=== PATIENT | female | born 1965 | race Caucasian/White ===

== ENCOUNTER → 2018-06-05 09:45 | Outpatient (CLI) | payer OTHER, MEDICAID, SELFPAY ==
[2018-06-05 10:12] LABS: Add Manual Diff / Slide Review NO; Basophils Percent Auto 1.2 % (0-2); Eosinophils Percent Auto 1.2 % (2-4); Hematocrit 41.9 % (36-46); Hemoglobin 14.5 g/dL (12.0-16.0); Lymphocytes Percent Auto 25.3 % (25-40); Mean Corpuscular HGB Conc 34.5 % (30-36); Mean Corpuscular Hemoglobin 31.1 PG (26-34); Mean Corpuscular Volume 90.2 fL (80-100); Monocytes Percent Auto 7.7 % (3-14); Neutrophils Absolute Auto 6700 /uL (3000-5900); Neutrophils Percent Auto 64.6 % (50-75); Platelet Count 334 X10^3/uL (150-400); Red Blood Cell Count 4.65 X10^6/uL (4.0-5.2); Red Cell Distribution Width 13.3 % (11.6-14.8); White Blood Cell Count 10.3 X10^3/uL (4.5-11.0)
[2018-06-05 11:09] LABS: Free T4, Direct Thyroxine 1.16 ng/dL (0.78-2.19)
[2018-06-05 11:11] LABS: Creatinine Urine Random 249.3 mg/dL
[2018-06-05 11:22] LABS: Thyroid Stimulating Hormone 2.54 uIU/mL (0.47-4.68)
[2018-06-05 11:31] LABS: Alanine Aminotransferase 35 IU/L (9-52); Albumin Globulin Ratio 1.4 (1.0-2.8); Alkaline Phosphatase 79 U/L (38-126); Aspartate Aminotransferase 30 IU/L (14-36); BUN Creatinine Ratio 21.3 (6-22); Bilirubin Total 0.9 mg/dL (0.2-1.3); Blood Urea Nitrogen 17 mg/dL (7-17); Calcium 9.8 mg/dL (8.4-10.2); Carbon Dioxide 28 mmol/L (22-32); Chloride 101 mmol/L (98-107); Cholesterol 287 mg/dL (140-199); Estimated Glomerular Filt Rate > 60.0 mL/min (>60); Globulin 3.6 g/dL (1.7-4.1); Glucose 108 mg/dL (70-100); HDL Cholesterol 64 mg/dL (40-60); HEMOLYSIS < 15 (0-50); LDL Cholesterol Calculated 185 mg/dL (<100); Potassium 3.7 mmol/L (3.4-5.1); Sodium 140 mmol/L (137-145); Total Protein 8.6 g/dL (6.3-8.2); Triglycerides 188 mg/dL (35-150)
[2018-06-05 11:32] LABS: Microalbumi Creatinin Ratio Ur 107.9 ug/mg CR (<30); Microalbumin Urine Random 26.9 mg/dL (0-1.6)
[2018-06-05 19:17] LABS: Uric Acid 6.9 mg/dL (2.5-6.2)
== END ==
PROVIDERS: PCP Physician Assistant; Visit Provider Physician Assistant
DX: I10 Essential (primary) hypertension (principal); R07.89 Other chest pain; Z82.49 Family history of ischemic heart disease and other diseases of the circulatory system; D84.1 Defects in the complement system; M25.50 Pain in unspecified joint
CPT/HCPCS: 36415; 80053; 80061; 82043; 82570; 84439; 84443; 84550; 85025

== ENCOUNTER → 2018-06-08 13:06 | Outpatient (CLI) | payer OTHER, MEDICAID, SELFPAY ==
[2018-06-11 22:16] LABS: Fecal Immunochemical Test NOT DETECTED
== END ==
PROVIDERS: PCP Physician Assistant; Visit Provider Physician Assistant
DX: Z12.11 Encounter for screening for malignant neoplasm of colon (principal)
CPT/HCPCS: 82274

== ENCOUNTER → 2018-08-04 11:13 | Outpatient (CLI) | payer OTHER, MEDICAID, SELFPAY ==
--- NOTE | 2018-08-04 | DI.MG.S_ITS ---
BILATERAL DIGITAL SCREENING MAMMOGRAM 3D/2D WITH CAD: 08/04/2018 CLINICAL: Routine screening. Comparison is made to exams dated: 01/02/2015 mammogram, 06/18/2014 mammogram, and 07/11/2012 mammogram - [facility]. There are scattered fibroglandular elements in both breasts. Current study was also evaluated with a Computer Aided Detection (CAD) system. There are benign post operative findings in the left breast. No significant masses, calcifications, or other findings are seen in either breast. There has been no significant interval change. IMPRESSION: There is no mammographic evidence of malignancy. A 1 year screening mammogram is recommended. This exam was interpreted at Station ID: [id number]. NOTE: For mammograms, a report in lay terms will be sent to the patient. Approximately 15% of breast malignancies will not be visualized mammographically. In the management of a palpable breast mass, a negative mammogram must not discourage biopsy of a clinically suspicious lesion. Electronically Signed By: Cecilia manuel/izaiah:08/06/2018 13:04:59 letter sent: Normal Exam ACR BI-RADS Category 2: Benign Finding(s) 3342F
== END ==
PROVIDERS: PCP Physician Assistant; Visit Provider Physician Assistant
DX: Z12.31 Encounter for screening mammogram for malignant neoplasm of breast (principal)
CPT/HCPCS: 77063; 77067

== ENCOUNTER → 2018-12-18 14:19 | Outpatient (CLI) | payer OTHER, MEDICAID, SELFPAY ==
[2018-12-18 15:52] LABS: Cholesterol 300 mg/dL (140-199); HDL Cholesterol 54 mg/dL (40-60); LDL Cholesterol Calculated 202 mg/dL (<100); Triglycerides 218 mg/dL (35-150); Uric Acid 4.9 mg/dL (2.5-6.2)
[2018-12-18 15:56] LABS: Creatinine Urine Random 70.5 mg/dL
[2018-12-18 16:00] LABS: Microalbumi Creatinin Ratio Ur 36.8 ug/mg CR (<30); Microalbumin Urine Random 2.6 mg/dL (0-1.6)
== END ==
PROVIDERS: PCP Physician Assistant; Visit Provider Physician Assistant
DX: E78.2 Mixed hyperlipidemia (principal); E79.0 Hyperuricemia without signs of inflammatory arthritis and tophaceous disease; R80.9 Proteinuria, unspecified
CPT/HCPCS: 36415; 80061; 82043; 82570; 84550

== ENCOUNTER → 2019-03-19 09:29 | Outpatient (CLI) | payer OTHER, MEDICAID, SELFPAY ==
[2019-03-19 10:34] LABS: Alanine Aminotransferase 64 IU/L (9-52); Albumin 4.5 g/dL (3.5-5.0); Albumin Globulin Ratio 1.4 (1.0-2.8); Alkaline Phosphatase 89 U/L (38-126); Aspartate Aminotransferase 57 IU/L (14-36); Bilirubin Total 0.4 mg/dL (0.2-1.3); Bilirubin Unconjugated 0.2 mg/dL (0.0-1.1); Cholesterol 159 mg/dL (140-199); Globulin 3.2 g/dL (1.7-4.1); HDL Cholesterol 35 mg/dL (40-60); HEMOLYSIS < 15 (0-50); LDL Cholesterol Calculated 80 mg/dL (<100); Total Protein 7.7 g/dL (6.3-8.2); Triglycerides 220 mg/dL (35-150)
== END ==
PROVIDERS: PCP Physician Assistant; Visit Provider Physician Assistant
DX: E78.2 Mixed hyperlipidemia (principal); Z51.81 Encounter for therapeutic drug level monitoring
CPT/HCPCS: 36415; 80061; 80076

== ENCOUNTER 2019-03-20 04:54 | Emergency (ER) | payer OTHER, MEDICAID, SELFPAY ==
[2019-03-20 05:03] VITALS: BP 131/104; PULSE 98; RESP 18; TEMP 36.6; O2SAT 98; BMI 28.1
[2019-03-20 05:17] LABS: Add Manual Diff / Slide Review NO; Basophils Absolute Auto 100 /uL (0-100); Basophils Percent Auto 0.6 % (0-2); Eosinophils Absolute Auto 100 /uL (0-450); Eosinophils Percent Auto 1.5 % (2-4); Hematocrit 43.3 % (36-46); Hemoglobin 14.7 g/dL (12.0-16.0); Lymphocytes Absolute Auto 2600 /uL (1100-4500); Lymphocytes Percent Auto 26.6 % (25-40); Mean Corpuscular Hemoglobin 30.5 PG (26-34); Mean Corpuscular Volume 89.7 fL (80-100); Monocytes Absolute Auto 1600 /uL (0-900); Monocytes Percent Auto 16.1 % (3-14); Neutrophils Absolute Auto 5400 /uL (1500-7000); Neutrophils Percent Auto 55.2 % (50-75); Platelet Count 290 X10^3/uL (150-400); Red Blood Cell Count 4.82 X10^6/uL (4.0-5.2); Red Cell Distribution Width 13.9 % (11.6-14.8); White Blood Cell Count 9.7 X10^3/uL (4.5-11.0)
--- NOTE | 2019-03-20 05:23 | DI.US.S_ITS ---
PROCEDURE: US ABDOMEN LIMITED INDICATIONS: severe RUQ pain TECHNIQUE: Real-time focused scanning was performed of the abdomen, with image documentation. COMPARISON: [facility], CR, ABDOMEN ACUTE SERIES, 01/10/2017, 15:44. [facility], CT, ABDOMEN/PELVIS WITH CONTRAST, 07/25/2016, 17:08. FINDINGS: The liver is hyperechoic consistent with marked fatty infiltration but no focal liver lesion is seen nor is there evidence of biliary distention. The liver is not enlarged. IMPRESSION: The gallbladder appears normal, fatty infiltration is present throughout the liver. A definite source of severe right upper quadrant pain is not found otherwise. Dictated by: Steven Cristina M.D. on 03/20/2019 at 8:46 Approved by: Steven Cristina M.D. on 03/20/2019 at 8:47
[2019-03-20 05:24] LABS: INR 0.9 (0.9-1.3); Prothrombin Time 10.9 SECONDS (10.1-12.7)
[2019-03-20 05:26] LABS: PTT Partial Thromboplastin Tim 32 SECONDS (26.4-36.2)
--- NOTE | 2019-03-20 05:26 | ED.ABDPAIN ---
HPI - Abdominal Pain General Chief Complaint: Abdominal Pain Stated Complaint: vomiting for 2 days/diarreha Time Seen by Provider: 03/20/19 05:00 Source: patient Mode of arrival: ambulatory Limitations: no limitations History of Present Illness HPI narrative: 53-year-old female nonsmoker with history of colitis presents with a chief complaint of rather severe epigastric and right upper quadrant pain for the past day or 2. She states it gets much worse when she eats and she admits to nausea vomiting as well. She denies any chest pain or shortness of breath. She is not dizzy, weak or lightheaded. She denies fever or chills. MD complaint: abdominal pain Onset (ago): day(s) Pain Consistency: constant Location: RUQ Severity: moderate Quality: cramping and aching Migration to: no migration Relieving factors: nothing Exacerbating factors: eating Context: possible food poisoning Associated symptoms: nausea, vomiting and diarrhea Related Data Home Medications Medication Instructions Recorded Confirmed Acyclovir 5% See Rx Instructions .ROUTE .COMPLEX 06/05/18 03/19/19 Meloxicam See Rx Instructions .ROUTE .COMPLEX 06/05/18 03/19/19 Previous Rx's Medication Instructions Recorded fluticasone propionate 50 2 spray NASAL DAILY PRN #15.8 gram 02/20/18 mcg/actuation nasal spray,suspension loratadine 10 mg tablet 10 mg PO DAILY PRN #30 tab 02/20/18 ondansetron 4 mg disintegrating 4 mg SUBLINGUAL Q6HP PRN #10 odt 05/02/18 tablet allopurinol 100 mg tablet 100 mg PO DAILY #30 tab 09/11/18 valacyclovir 1 gram tablet 1,000 mg PO BID PRN #30 tab 09/18/18 pantoprazole 40 mg tablet,delayed 40 mg PO DAILY #30 tab 12/18/18 release cyclobenzaprine 5 mg tablet 5 mg PO BIDP PRN #30 tab 01/31/19 metoprolol succinate ER 25 mg 25 mg PO QDAY #30 ter 01/31/19 tablet,extended release 24 hr atorvastatin 20 mg tablet 20 mg PO BEDTIME #60 tab 03/19/19 ondansetron 4 mg PO TID-QID PRN #10 tab 03/20/19 Allergies Allergy/AdvReac Type Severity Reaction Status Date / Time Penicillins [PENICILLINS] Allergy Mild RASH Verified 03/20/19 05:13 oseltamivir [From TAMIFLU] AdvReac Intermediate lesions Verified 03/20/19 05:13 on skin Review of Systems Constitutional Denies chills, Denies fever(s), Denies lethargy and Denies weakness Eyes Denies change in vision, Denies eye discharge, Denies irritation and Denies loss of vision ENT Ears, Nose, Mouth, and Throat: Denies change in voice, Denies neck pain and Denies sore throat Cardiovascular Denies chest pain, Denies irregular heart rhythm, Denies lightheadedness, Denies palpitations, Denies dyspnea, Denies dyspnea on exertion and Denies orthopnea Respiratory Denies cough, Denies dyspnea, Denies dyspnea on exertion and Denies wheezing Gastrointestinal Gastrointestinal: Reports abdominal pain, Denies change in bowel habits, Reports diarrhea, Reports nausea and Reports vomiting Genitourinary Denies hematuria, Denies flank pain, Denies urinary incontinence and Denies urinary urgency Musculoskeletal Denies neck pain Integumentary/Breasts Denies pruritus, Denies erythema, Denies rash and Denies wounds Neurologic Denies confusion, Denies loss of vision and Denies weakness Psychiatric Denies anxiety, Denies confusion, Denies depression, Denies homicidal ideation and Denies suicidal ideation Endocrine Denies palpitations Hematologic/Lymphatic Denies easy bruising Allergic/Immunologic Denies wheezing FORMERLY [facility] Medical History Anxiety (Chronic Unknown) Chronic pain syndrome (Chronic Unknown) Depression (Chronic Unknown) Hypertension (Chronic Unknown) PTSD (post-traumatic stress disorder) (Chronic Unknown) Colitis (Resolved Unknown) Congenital deafness (Resolved Unknown) Surgical History 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 HEAD: Atraumatic. Normocephalic. No temporal or scalp tenderness. EYES: Pupils equal round and reactive. Extraocular motions intact. No scleral icterus. No injection or drainage. ENT: Nose without bleeding, purulent drainage or septal hematoma. Throat without erythema, tonsillar hypertrophy or exudate. Uvula midline. Airway patent. NECK: Trachea midline. No JVD or lymphadenopathy. Supple, nontender, no meningeal signs. CARDIOVASCULAR: Regular rate and rhythm without murmurs, gallops, or rubs. RESPIRATORY: Clear to auscultation. Breath sounds equal bilaterally. No wheezes, rales, or rhonchi. GASTROINTESTINAL: Abdomen soft, but significantly tender in RUQ nondistended. No hepato-splenomegaly, or palpable masses. No guarding. EXTREMITIES: No clubbing, cyanosis, or edema. No joint tenderness, effusion, or edema noted. BACK: Nontender without deformity or crepitance. No flank tenderness. NEURO: AOx3. SKIN: No rash or erythema. Initial Vital Signs Initial Vital Signs: Vital Signs Temperature 97.9 F 03/20/19 05:03 Pulse Rate 98 H 03/20/19 05:03 Respiratory Rate 18 03/20/19 05:03 Blood Pressure 131/104 H 03/20/19 05:03 Pulse Oximetry 98 03/20/19 05:03 Course Orders Ordered: ED Orders 03/20/19 05:02 EKG-12 Lead Stat 03/20/19 05:09 Complete Blood Count AUTO DIFF Stat Comprehensive Metabolic Panel Stat Lipase Stat Partial Thromboplastin Time Stat Prothrombin Time INR Stat 03/20/19 05:23 US abdomen limited Stat 03/20/19 06:29 Hepatitis Acute Panel Stat Discontinued Medications Hydromorphone HCl (Dilaudid) 0.5 mg IV NOW ONE Stop: 03/20/19 05:23 Last Admin: 03/20/19 05:53 Dose: Not Given Hydromorphone HCl (Dilaudid) 0.5 mg IV NOW ONE Stop: 03/20/19 05:24 Last Admin: 03/20/19 05:32 Dose: 0.5 mg Ondansetron HCl (Zofran) 4 mg IV NOW ONE Stop: 03/20/19 05:23 Last Admin: 03/20/19 05:53 Dose: Not Given Ondansetron HCl (Zofran) 4 mg IV NOW ONE Stop: 03/20/19 05:24 Last Admin: 03/20/19 05:32 Dose: 4 mg Ondansetron HCl (Zofran Odt Prepack) 1 bottle MISC SEEINSTR ONE Stop: 03/20/19 06:30 Last Admin: 03/20/19 06:42 Dose: 1 bottle Vital Signs - 8 hr 03/20/19 05:03 03/20/19 06:30 Temperature 97.9 F Pulse Rate 98 H 79 Respiratory Rate 18 16 Blood Pressure 131/104 H Blood Pressure [Right Arm] 149/91 H Pulse Oximetry 98 96 MDM - Abdominal Pain Lab Data Result diagrams: 03/20/19 05:09 03/20/19 05:09 Lab Results 03/20/19 03/20/19 03/20/19 Range/Units 05:09 05:09 05:09 WBC 9.7 (4.5-11.0) X10^3/uL RBC 4.82 (4.0-5.2) X10^6/uL Hgb 14.7 (12.0-16.0) g/dL Hct 43.3 (36-46) % MCV 89.7 (80-100) fL MCH 30.5 (26-34) PG MCHC 34.0 (30-36) % RDW 13.9 (11.6-14.8) % Plt Count 290 (150-400) X10^3/uL Neut % (Auto) 55.2 (50-75) % Lymph % (Auto) 26.6 (25-40) % [place] % (Auto) 16.1 H (3-14) % Eos % (Auto) 1.5 L (2-4) % Baso % (Auto) 0.6 (0-2) % Neut # (Auto) 5400 (6056-3354) /uL Lymph # (Auto) 2600 (2917-8432) /uL [place] # (Auto) 1600 H (0-900) /uL Eos # (Auto) 100 (0-450) /uL Baso # (Auto) 100 (0-100) /uL PT 10.9 (10.1-12.7) SECONDS INR 0.9 (0.9-1.3) APTT 32 (26.4-36.2) SECONDS Sodium 138 (137-145) mmol/L Potassium 3.7 (3.4-5.1) mmol/L Chloride 102 (98-107) mmol/L Carbon Dioxide 27 (22-32) mmol/L BUN 14 (7-17) mg/dL Creatinine 0.70 (0.52-1.04) mg/dL Estimated GFR > 60.0 (>60) mL/min BUN/Creatinine Ratio 20.0 (6-22) Glucose 128 H (70-100) mg/dL Calcium 9.2 (8.4-10.2) mg/dL Total Bilirubin 0.4 (0.2-1.3) mg/dL AST 55 H (14-36) IU/L ALT 71 H (9-52) IU/L Alkaline Phosphatase 88 (38-126) U/L Total Protein 7.5 (6.3-8.2) g/dL Albumin 4.3 (3.5-5.0) g/dL Globulin 3.2 (1.7-4.1) g/dL Albumin/Globulin Ratio 1.3 (1.0-2.8) Lipase 149 (23-300) U/L MDM Narrative Medical decision making narrative: Multiple etiologies for patient's symptoms considered including: [GB disease and pancreatitis considered, but thought less likely given lack of supporting labs or imaging findings. Viral hepatitis considered most likely cause given recent N/V/D and elevated transaminases. ] Patient's symptoms improved or duration of stay with above-stated therapies. Findings and discharge diagnosis discussed with patient/family followed by verbalization of understanding Return precautions discussed with patient/family whom verbalize understanding. Discharge Plan Departure Patient Disposition: Home Clinical Impression: Abnormal transaminases Instructions: Liver Function Tests Activity Restrictions/Additional Instructions: *You have been diagnosed with [ upper abdominal pain and abnormal liver tests ] *What to do: *Take medications as directed: Bernard electronically transmitted to [employer] at your request *Follow up with your primary care provider in 2-3 days, call for an appointment. Let them know you were seen in the Emergency Department and that we ask that you be seen in follow up *Return to ER if you should have any new, worsening or concerning symptoms Prescriptions: New ondansetron 4 mg tablet,disintegrating 4 mg PO TID-QID PRN (Reason: nausea and vomiting) Qty: 10 RF: 0 No Action Acyclovir 5% ointment See Patient Comments .ROUTE .COMPLEX RF: 0 Meloxicam See Patient Comments .ROUTE .COMPLEX RF: 0 fluticasone propionate [Flonase Allergy Relief] 50 mcg/actuation spray,suspension 2 spray NASAL DAILY PRN (Reason: allergy symptoms) Qty: 15.8 RF: 3 loratadine [Allergy Relief (loratadine)] 10 mg tablet 10 mg PO DAILY PRN (Reason: allergy symptoms) Qty: 30 RF: 5 allopurinol 100 mg tablet 100 mg PO DAILY Qty: 30 RF: 6 pantoprazole 40 mg tablet,delayed release (DR/EC) 40 mg PO DAILY Qty: 30 RF: 3 ondansetron [Zofran ODT] 4 mg tablet,disintegrating 4 mg Sublingual Q6HP PRN (Reason: nausea) Qty: 10 RF: 3 valacyclovir 1 gram tablet 1,000 mg PO BID PRN (Reason: recurrent herpetic lesions) Qty: 30 RF: 3 metoprolol succinate [Toprol XL] 25 mg tablet extended release 24 hr 25 mg PO QDAY Qty: 30 RF: 3 cyclobenzaprine 5 mg tablet 5 mg PO BIDP PRN (Reason: muscle spasm) Qty: 30 RF: 2 atorvastatin 20 mg tablet 20 mg PO BEDTIME Qty: 60 RF: 3 Referrals: Nydia Perez PA-C [Primary Care Provider] -
[2019-03-20 05:27] LABS: Alanine Aminotransferase 71 IU/L (9-52); Albumin 4.3 g/dL (3.5-5.0); Albumin Globulin Ratio 1.3 (1.0-2.8); Alkaline Phosphatase 88 U/L (38-126); Aspartate Aminotransferase 55 IU/L (14-36); Bilirubin Total 0.4 mg/dL (0.2-1.3); Blood Urea Nitrogen 14 mg/dL (7-17); Calcium 9.2 mg/dL (8.4-10.2); Carbon Dioxide 27 mmol/L (22-32); Chloride 102 mmol/L (98-107); Estimated Glomerular Filt Rate > 60.0 mL/min (>60); Globulin 3.2 g/dL (1.7-4.1); Glucose 128 mg/dL (70-100); HEMOLYSIS < 15 (0-50); Lipase 149 U/L (23-300); Potassium 3.7 mmol/L (3.4-5.1); Sodium 138 mmol/L (137-145); Total Protein 7.5 g/dL (6.3-8.2)
[2019-03-20] MEDS: HYDROMORPHONE 1 MG INJ 0.5 MG IV (05:32)
[2019-03-20] MEDS: ONDANSETRON 4 MG/2 ML INJ IV (05:32)
[2019-03-20 06:30] VITALS: BP 149/91; PULSE 79; RESP 16; O2SAT 96
[2019-03-20] MEDS: ONDANSETRON 4 MG ODT PREPACK 1 BOTTLE MISC (06:42)
[2019-03-22 16:23] LABS: Hepatitis A Antibody IgM NONREACTIVE (NONREACTIVE); Hepatitis Acute Panel Interp 0.01; Hepatitis B Core Antibody IgM NONREACTIVE (NONREACTIVE); Hepatitis B Surface Antigen NONREACTIVE (NONREACTIVE); Hepatitis C Antibody NONREACTIVE
== END 2019-03-20 07:05 | disposition home or self-care (01) ==
PROVIDERS: Emergency Provider Emergency Medicine; PCP Physician Assistant
DX: R74.8 Abnormal levels of other serum enzymes (principal); R10.13 Epigastric pain; R10.10 Upper abdominal pain, unspecified
CPT/HCPCS: 36415; 36591; 76705; 80053; 80074; 83690; 85025; 85610; 85730; 93005; 96374; 96375; 99282; 99285; J1170; J2405

== ENCOUNTER → 2019-06-19 12:26 | Outpatient (CLI) | payer OTHER, MEDICAID, SELFPAY ==
--- NOTE | 2019-06-19 12:30 | DI.RAD.S_ITS ---
PROCEDURE: XR SHOULDER LT MIN 2V INDICATIONS: Bilateral shoulder pain TECHNIQUE: 3 views of the left shoulder were acquired. COMPARISON: [facility], , SHOULDER MINIMUM 2VIEW RIGHT, 10/18/2017, 11:08. FINDINGS: Bones: No fractures or dislocations. No suspicious bony lesions. Visualized ribs appear intact. Soft tissues: No suspicious soft tissue calcifications. IMPRESSION: Left shoulder osteoarthritis is mild, and no trauma is found. Dictated by: Steven Cristina M.D. on 06/19/2019 at 14:04 Approved by: Steven Cristina M.D. on 06/19/2019 at 14:05
--- NOTE | 2019-06-19 12:30 | DI.RAD.S_ITS ---
PROCEDURE: XR SHOULDER RT MIN 2V INDICATIONS: Bilateral shoulder pain TECHNIQUE: 3 views of the shoulder were acquired. COMPARISON: [facility], , SHOULDER MINIMUM 2VIEW RIGHT, 10/18/2017, 11:08. FINDINGS: Bones: No fractures or dislocations. No suspicious bony lesions. Visualized ribs appear intact. Soft tissues: No suspicious soft tissue calcifications. IMPRESSION: No trauma found, source of shoulder pain is not identified. Dictated by: Steven Cristina M.D. on 06/19/2019 at 13:34 Approved by: Steven Cristina M.D. on 06/19/2019 at 13:35
--- NOTE | 2019-06-19 12:30 | DI.RAD.S_ITS ---
PROCEDURE: XR CERVICAL SPINE 2V OR 3V INDICATIONS: Bilateral shoulder pain TECHNIQUE: 3 view(s) of the cervical spine were acquired. COMPARISON: [facility], CR, CLAVICLE LEFT 2 VIEWS, 04/26/2017, 6:20. FINDINGS: Bones: No fractures or dislocations to the T1 level. The lateral masses of C1 appear intact on the odontoid view. No suspicious bony lesions. Only a slight degree of degenerative disc disease seen at C5-6, without subluxation. Facet osteoarthritis at this level is moderate to moderately severe greater on the left than the right best seen on the frontal projection. Soft tissues: No prevertebral soft tissue swelling. IMPRESSION: C5-6 degenerative disc disease and facet osteoarthritis with osteoarthritic spurring greater on the left than the right at the facet joints. Dictated by: Steven Cristina M.D. on 06/19/2019 at 13:35 Approved by: Steven Cristina M.D. on 06/19/2019 at 13:36
[2019-06-19 13:07] LABS: Add Manual Diff / Slide Review NO; Basophils Absolute Auto 100 /uL (0-100); Basophils Percent Auto 0.9 % (0-2); Eosinophils Absolute Auto 100 /uL (0-450); Eosinophils Percent Auto 0.6 % (2-4); Hemoglobin 14.4 g/dL (12.0-16.0); Lymphocytes Absolute Auto 2400 /uL (1100-4500); Lymphocytes Percent Auto 25.7 % (25-40); Mean Corpuscular HGB Conc 34.3 % (30-36); Mean Corpuscular Hemoglobin 30.6 PG (26-34); Mean Corpuscular Volume 89.2 fL (80-100); Monocytes Absolute Auto 600 /uL (0-900); Monocytes Percent Auto 6.2 % (3-14); Neutrophils Absolute Auto 6300 /uL (1500-7000); Neutrophils Percent Auto 66.6 % (50-75); Platelet Count 337 X10^3/uL (150-400); Red Cell Distribution Width 13.6 % (11.6-14.8); White Blood Cell Count 9.4 X10^3/uL (4.5-11.0)
[2019-06-19 16:41] LABS: Creatinine Urine Random 48.5 mg/dL
[2019-06-19 16:42] LABS: Microalbumi Creatinin Ratio Ur 109.2 ug/mg CR (<30); Microalbumin Urine Random 5.3 mg/dL (0-1.6)
[2019-06-19 16:43] LABS: Alanine Aminotransferase 23 IU/L (9-52); Albumin 4.9 g/dL (3.5-5.0); Albumin Globulin Ratio 1.4 (1.0-2.8); Alkaline Phosphatase 84 U/L (38-126); Aspartate Aminotransferase 24 IU/L (14-36); Bilirubin Total 0.5 mg/dL (0.2-1.3); Blood Urea Nitrogen 15 mg/dL (7-17); Calcium 10.5 mg/dL (8.4-10.2); Carbon Dioxide 28 mmol/L (22-32); Chloride 102 mmol/L (98-107); Cholesterol 229 mg/dL (140-199); Estimated Glomerular Filt Rate > 60.0 mL/min (>60); Globulin 3.4 g/dL (1.7-4.1); Glucose 113 mg/dL (70-100); HDL Cholesterol 56 mg/dL (40-60); HEMOLYSIS < 15 (0-50); LDL Cholesterol Calculated 130 mg/dL (<100); Potassium 4.2 mmol/L (3.4-5.1); Sodium 139 mmol/L (137-145); Total Protein 8.3 g/dL (6.3-8.2); Triglycerides 215 mg/dL (35-150); Uric Acid 3.4 mg/dL (2.5-6.2)
== END ==
PROVIDERS: PCP Physician Assistant; Visit Provider Physician Assistant
DX: M25.511 Pain in right shoulder (principal); M25.512 Pain in left shoulder; M54.2 Cervicalgia; E78.2 Mixed hyperlipidemia; E79.0 Hyperuricemia without signs of inflammatory arthritis and tophaceous disease; I10 Essential (primary) hypertension
CPT/HCPCS: 36415; 72040; 73030; 80053; 80061; 82043; 82570; 84550; 85025

== ENCOUNTER → 2019-09-30 11:30 | Outpatient (CLI) | payer OTHER, MEDICAID, SELFPAY ==
[2019-09-30 12:38] LABS: Cholesterol 226 mg/dL (140-199); HDL Cholesterol 47 mg/dL (40-60); Hemoglobin A1C% w Est Avg Glu 5.6 % (4.0-6.0); LDL Cholesterol Calculated 139 mg/dL (<100); Triglycerides 199 mg/dL (35-150)
== END ==
PROVIDERS: PCP Physician Assistant; Visit Provider Physician Assistant
DX: Z12.11 Encounter for screening for malignant neoplasm of colon (principal); E78.2 Mixed hyperlipidemia; R73.01 Impaired fasting glucose
CPT/HCPCS: 36415; 80061; 82274; 83036

== ENCOUNTER → 2019-11-20 11:41 | Outpatient (CLI) | payer OTHER, MEDICAID, SELFPAY ==
--- NOTE | 2019-11-20 11:43 | DI.MG.S_ITS ---
BILATERAL DIGITAL SCREENING MAMMOGRAM 3D/2D WITH CAD: 11/20/2019 CLINICAL: Routine screening. Comparison is made to exams dated: 08/04/2018 mammogram - [facility], 01/02/2015 mammogram, and 06/18/2014 mammogram - [facility]. There are scattered fibroglandular elements in both breasts. Current study was also evaluated with a Computer Aided Detection (CAD) system. There are benign post operative findings in the left breast. No significant masses, calcifications, or other findings are seen in either breast. There has been no significant interval change. IMPRESSION: There is no mammographic evidence of malignancy. A 1 year screening mammogram is recommended. This exam was interpreted at Station ID: [id number]. NOTE: For mammograms, a report in lay terms will be sent to the patient. Approximately 15% of breast malignancies will not be visualized mammographically. In the management of a palpable breast mass, a negative mammogram must not discourage biopsy of a clinically suspicious lesion. Electronically Signed By: Bertram meraz/izaiah:11/20/2019 16:26:24 letter sent: Normal Exam ACR BI-RADS Category 2: Benign Finding(s) 3342F
== END ==
PROVIDERS: PCP Physician Assistant; Referring Provider Physician Assistant; Visit Provider Physician Assistant
DX: Z12.31 Encounter for screening mammogram for malignant neoplasm of breast (principal)
CPT/HCPCS: 77063; 77067

== ENCOUNTER → 2019-12-21 08:43 | Outpatient (CLI) | payer OTHER, MEDICAID, SELFPAY ==
[2019-12-21 09:36] LABS: Add Manual Diff / Slide Review NO; Basophils Absolute Auto 0 /uL (0-100); Basophils Percent Auto 0.5 % (0-2); Eosinophils Absolute Auto 200 /uL (0-450); Eosinophils Percent Auto 1.9 % (2-4); Hematocrit 41.7 % (36-46); Hemoglobin 14.1 g/dL (12.0-16.0); Lymphocytes Absolute Auto 3000 /uL (1100-4500); Mean Corpuscular HGB Conc 33.8 % (30-36); Mean Corpuscular Hemoglobin 30.6 PG (26-34); Mean Corpuscular Volume 90.4 fL (80-100); Monocytes Absolute Auto 700 /uL (0-900); Monocytes Percent Auto 7.6 % (3-14); Neutrophils Absolute Auto 4900 /uL (1500-7000); Platelet Count 304 X10^3/uL (150-400); Red Blood Cell Count 4.62 X10^6/uL (4.0-5.2); Red Cell Distribution Width 13.6 % (11.6-14.8); White Blood Cell Count 8.7 X10^3/uL (4.5-11.0)
[2019-12-21 09:53] LABS: Alanine Aminotransferase 21 IU/L (<35); Albumin 4.7 g/dL (3.5-5.0); Albumin Globulin Ratio 1.3 (1.0-2.8); Alkaline Phosphatase 64 U/L (38-126); Aspartate Aminotransferase 29 IU/L (14-36); BUN Creatinine Ratio 21.7 (6-22); Bilirubin Total 0.4 mg/dL (0.2-1.3); Blood Urea Nitrogen 13 mg/dL (7-17); Calcium 10.1 mg/dL (8.4-10.2); Carbon Dioxide 32 mmol/L (22-32); Chloride 103 mmol/L (98-107); Cholesterol 228 mg/dL (140-199); Estimated Glomerular Filt Rate > 60.0 mL/min (>60); Globulin 3.5 g/dL (1.7-4.1); Glucose 112 mg/dL (70-100); HDL Cholesterol 52 mg/dL (40-60); HEMOLYSIS 23 (0-50); LDL Cholesterol Calculated 135 mg/dL (<100); Potassium 4.5 mmol/L (3.4-5.1); Sodium 140 mmol/L (137-145); Total Protein 8.2 g/dL (6.3-8.2); Triglycerides 203 mg/dL (35-150); Uric Acid 3.8 mg/dL (2.5-6.2)
[2019-12-21 11:15] LABS: Creatinine Urine Random 28.5 mg/dL
[2019-12-21 11:26] LABS: Microalbumin Urine Random < 0.6 mg/dL (0-1.6)
[2019-12-23 20:30] LABS: Fecal Immunochemical Test NOT DETECTED (NOT DETECTED)
== END ==
PROVIDERS: Physician Assistant; PCP Family Medicine; Referring Provider Family Medicine; Visit Provider Family Medicine
DX: Z12.11 Encounter for screening for malignant neoplasm of colon (principal); E78.2 Mixed hyperlipidemia; E79.0 Hyperuricemia without signs of inflammatory arthritis and tophaceous disease; I10 Essential (primary) hypertension; R80.9 Proteinuria, unspecified
CPT/HCPCS: 36415; 80053; 80061; 82043; 82274; 82570; 84550; 85025

== ENCOUNTER 2020-03-08 07:32 | Observation (INO) | payer OTHER, MEDICAID, SELFPAY ==
[2020-03-08] VITALS (12 sets, daily range): BP systolic 114–178; BP diastolic 72–97; PULSE 58–95; RESP 14–22; TEMP 36.6–37.6; O2SAT 98–100; BMI 60.5; BMI 26.6
[2020-03-08] MEDS: SODIUM CHLORIDE 0.9% 1,000 ML 1000 ML IV ×2 (08:36→10:49)
[2020-03-08] MEDS: ONDANSETRON 4 MG/2 ML INJ IV ×2 (08:37→09:18)
[2020-03-08 08:43] LABS: Add Manual Diff / Slide Review NO; Basophils Absolute Auto 100 /uL (0-100); Basophils Percent Auto 0.3 % (0-2); Eosinophils Absolute Auto 0 /uL (0-450); Hematocrit 41.6 % (36-46); Hemoglobin 14.1 g/dL (12.0-16.0); Lymphocytes Absolute Auto 1300 /uL (1100-4500); Lymphocytes Percent Auto 5.5 % (25-40); Mean Corpuscular Hemoglobin 30.6 PG (26-34); Mean Corpuscular Volume 89.9 fL (80-100); Monocytes Absolute Auto 600 /uL (0-900); Monocytes Percent Auto 2.6 % (3-14); Neutrophils Absolute Auto 21700 /uL (1500-7000); Neutrophils Percent Auto 91.6 % (50-75); Platelet Count 417 X10^3/uL (150-400); Red Blood Cell Count 4.63 X10^6/uL (4.0-5.2); White Blood Cell Count 23.7 X10^3/uL (4.5-11.0)
[2020-03-08 08:45] LABS: Alanine Aminotransferase 24 IU/L (<35); Albumin 5.3 g/dL (3.5-5.0); Albumin Globulin Ratio 1.4 (1.0-2.8); Alkaline Phosphatase 97 U/L (38-126); Aspartate Aminotransferase 35 IU/L (14-36); BUN Creatinine Ratio 35.2 (6-22); Bilirubin Total 0.7 mg/dL (0.2-1.3); Blood Urea Nitrogen 19 mg/dL (7-17); Calcium 10.1 mg/dL (8.4-10.2); Carbon Dioxide 22 mmol/L (22-32); Chloride 106 mmol/L (98-107); Estimated Glomerular Filt Rate > 60.0 mL/min (>60); Globulin 3.8 g/dL (1.7-4.1); Glucose 164 mg/dL (70-100); HEMOLYSIS < 15 (0-50); Lactate Dehydrogenase 553 U/L (313-618); Lipase 57 U/L (23-300); Potassium 3.5 mmol/L (3.4-5.1); Sodium 143 mmol/L (137-145); Total Protein 9.1 g/dL (6.3-8.2)
[2020-03-08 08:46] LABS: Lactate (Lactic Acid) 2.8 mmol/L (0.7-2.1)
--- NOTE | 2020-03-08 09:11 | DI.CT.S_ITS ---
PROCEDURE: CT ABDOMEN PELVIS W CON INDICATIONS: recurrent abd pain TECHNIQUE: After the administration of intravenous contrast, 5 mm thick sections acquired from the diaphragm to the symphysis. 5 mm coronal and sagittal reformats were acquired. For radiation dose reduction, the following was used: automated exposure control, adjustment of mA and/or kV according to patient size. COMPARISON: None. FINDINGS: Image quality: Excellent. ABDOMEN: Lung bases: Lung bases are clear. Heart size is normal. Solid organs: Liver is normal in size and enhancement. Gallbladder is unremarkable. Biliary system is non dilated. Pancreas enhances normally. Spleen is normal in size and enhancement. No adrenal nodules. Kidneys demonstrate normal size and enhancement, without hydronephrosis. Peritoneum and bowel: Bowel loops demonstrate normal wall thickness and caliber. No free fluid or air. Extensive sigmoid diverticulosis without evidence of diverticulitis. Nodes and vessels: No retroperitoneal or mesenteric adenopathy by size criteria. Aorta and inferior vena cava are normal in size. Miscellaneous: No ventral hernias. PELVIS: Genitourinary: Bladder wall thickness is normal. Miscellaneous: No inguinal hernias or adenopathy. Bones: No suspicious bony lesions. No vertebral body compression fractures. IMPRESSION: 1. Sigmoid diverticulosis without evidence of diverticulitis. 2. No evidence of acute abdominal process. Dictated by: Rajeev Powell M.D. on 03/08/2020 at 8:59 Approved by: Rajeev Powell M.D. on 03/08/2020 at 9:03
[2020-03-08] MEDS: MORPHINE 2 MG/ML INJ IV (09:18)
[2020-03-08 09:48] LABS: Bacteria Urine None Seen; WBC Urine None Seen (0-5/HPF)
[2020-03-08 09:52] LABS: Appearance Urine UA CLEAR; Bilirubin Urine UA NEGATIVE (NEGATIVE); Color Urine UA YELLOW; Glucose Urine UA NEGATIVE (Negative); Ketones Urine UA 2+ (NEGATIVE); Leukocyte Esterase Urine UA NEGATIVE (NEGATIVE); Nitrite Urine UA NEGATIVE (Negative); Occult Blood Urine UA 2+ (Negative); Protein Urine UA 2+ (Negative); Specific Gravity Urine UA <=1.005 (1.000-1.035); Urobilinogen Urine UA 0.2 E.U./dL (0.2)
[2020-03-08 10:03] LABS: Culture Indicated Urine Cult Not Indicated; RBC Urine 5-10/HPF (0-5/HPF); Squamous Epithelial Cell Urine 0-1 /HPF (0-5/HPF)
--- NOTE | 2020-03-08 10:33 | ED_ITS ---
HPI - Nausea/Vomiting/Diarrhea General Chief complaint: Nausea/Vomiting/Diarrhea Stated complaint: VOMITING SINCE LAST NIGHT Time Seen by Provider: 03/08/20 09:07 Source: patient Mode of arrival: Ambulatory Limitations: language barrier History of Present Illness HPI Narrative: CC: Nausea vomiting diarrhea HPI: The patient is a 54-year-old female who presents to the emergency department with persistent nausea vomiting and diarrhea. She states that her symptoms started last night at 10:30 p.m.. She has been up all night with diarrhea and vomiting. She admits to a history of ulcerative colitis. She denies any melena hematochezia hematemesis or coffee-ground emesis. She states that since last night she has vomited at least 50 times. She is not been recently on any antibiotics. She denies a history of Clostridium difficile. She states that her UE bowel movements have been watery and loose. She has had at least 12 bowel movements since last night. She complains of diffuse abdominal cramps with the pain and discomfort being 7 to 8/10 in intensity. She denies any fall or injury no recent exposure it arm. She denies a history of COPD myocardial infarction, diabetes mellitus. She admits to history of pancreatitis and hypertension. She denies having an appendectomy or cholecystectomy. She denies smoking cigarettes drinking alcohol or using any drugs. Related Data Home Medications Medication Instructions Recorded Confirmed Acyclovir 5% 1 applic TOPICAL 5XD PRN 06/05/18 03/08/20 Previous Rx's Medication Instructions Recorded loratadine 10 mg tablet 10 mg PO DAILY PRN #30 tab 02/20/18 valacyclovir 1 gram tablet 1,000 mg PO BID PRN #30 tab 09/18/18 cyclobenzaprine 5 mg tablet 5 mg PO BIDP PRN #30 tab 01/31/19 metoprolol succinate 25 mg 25 mg PO QDAY #30 ter 06/19/19 tablet,extended release 24 hr ondansetron 4 mg disintegrating 4 mg PO DAILY PRN #10 tab 06/24/19 tablet pantoprazole 40 mg tablet,delayed 40 mg PO DAILY #30 tab 08/23/19 release lisinopril 10 mg tablet 10 mg PO DAILY #90 tab 10/22/19 atorvastatin 20 mg tablet 20 mg PO BEDTIME #60 tab 01/22/20 allopurinol 100 mg tablet 100 mg PO DAILY #90 tab 02/19/20 Allergies Allergy/AdvReac Type Severity Reaction Status Date / Time Penicillins [PENICILLINS] Allergy Mild RASH Verified 03/08/20 07:52 oseltamivir [From TAMIFLU] AdvReac Intermediate lesions Verified 03/08/20 07:52 on skin Review of Systems Review of Systems Narrative: REVIEW OF SYSTEMS: CONSTITUTIONAL: She denies any fever chills or sweats. NEUROLOGICAL: She has had no headache numbness tingling paresthesias anesthesia is or paresis. EENT: She denies any trouble swallowing sore throat nasal congestion. CARDIO-PULMONARY: She has had no chest pain cough shortness of breath palpitations or dizziness. HEMOTOLOGICAL: She denies any bleeding abnormalities or bruising GASTROINTESTINAL: She has had the nausea and vomiting as noted as well as diarrhea. She denies any melena hematochezia. She has developed progressive weakness and fatigue. GENITAL URINARY: She denies any urinary symptoms frequency or urgency. She has actually had decreased urination. She appears to be dehydrated. MUSCULOSKELETAL/ RHEUMATOLOGICAL: She complains of low back ache. 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 Father Gout Heart disease Social History household members: significant other Smoking Status: Never smoker second hand exposure: No alcohol intake: never substance use type: does not use Smoking Status: Never smoker Substance Use Type: does not use Exam Narrative Exam Narrative: PHYSICAL EXAM: CONSTITUTIONAL: Awake, Alert, Oriented, Coherent, Cooperative in moderate distress. The patient is up walking to the bathroom frequently. She appears to be very anxious and mildly agitated. HEAD: AT/NC EENT: PERRL, FROM of eyes, no discharge, no nystagmus NOSE:No epistaxis or nasal drainage MOUTH:Oral mucosa is moist and pink, posterior pharynx is without erythema or exudate. NECK: Supple, no obvious JVD, Trachea is midline without stridor, no palpable LN. SPINE: Palpationof the cervical, Thoracic, Lumbar or Sacral spine reveals no gross deformity or tenderness. No CVA tenderness. THORAX: No deformity, retractions, chest wall tenderness. LUNGS: Clear, symmetrical breath sounds without respiratory distress. HEART: Normal heart tones, regular rhythm and rate without murmur. ABDOMEN: The patient has diffuse tenderness in the epigastrium right upper quadrant and left upper quadrant with mild guarding no rebound no rigidity no palpable organomegaly. LYMPHATIC: no palpable spleen. EXTREMITIES: No edema, deformity, tenderness or cyanosis. SKIN: No rash, bruising, petechiae or purpura. NEURO: Awake, alert, oriented, conversive, cranial nerves II-XII are symmetrical , moves all 4 extremities and is ambulatory. MENTAL HEALTH: The patient appears very anxious. Initial Vital Signs Initial Vital Signs: Vital Signs Temperature 97.8 F 03/08/20 07:44 Pulse Rate 58 L 03/08/20 07:44 Respiratory Rate 22 03/08/20 07:44 Blood Pressure 178/82 H 03/08/20 07:44 Pulse Oximetry 100 03/08/20 07:44 Course Course Course Narrative: 1057: The nurse just informed me that the patient is now complaining of chest pain. Will check a chest x-ray on the patient along with an EKG and troponin. 1105: The patient's white blood count is 23.7 1000. Hemoglobin is 14.1, hematocrit is 41.6 Neutrophils are 91.6%, No evidence of UTI. Lactate is 2.8 which is elevated. This is probably secondary to dehydration and the retching. The patient will be evaluated for the possibility of sepsis secondary to colitis. The patient's CT of the abdomen reveals sigmoid diverticulosis without evidence of diverticulitis. There is no evidence of acute abdominal process. The patient's gallbladder is unremarkable biliary system is nondilated pancreas appears normal spleen is normal in size. Chest x-ray reveals no acute cardiopulmonary process. Orders Ordered: ED Orders 03/08/20 08:00 Complete Blood Count AUTO DIFF Stat Comprehensive Metabolic Panel Stat Lactate (Lactic Acid) Stat Lactate Dehydrogenase Stat Lipase Stat 03/08/20 08:55 Urinalysis and Microscopic Stat 03/08/20 09:11 CT abdomen pelvis w con Stat 03/08/20 10:19 Blood Culture Stat 03/08/20 10:58 XR chest 1V Stat EKG-12 Lead Stat 03/08/20 11:13 Troponin & CK Cardiac Panel Stat Acetaminophen (Tylenol) 650 mg PO Q6HR PRN PRN Reason: Fever/Mild Pain (1-3) Al Hydrox/Mg Hydrox/Simethicone (Maalox Plus) 30 ml PO Q6HR PRN PRN Reason: Dyspepsia Bisacodyl (Dulcolax) 10 mg MI DAILY PRN PRN Reason: Constipation Calcium Carbonate (Tums) 1,000 mg PO Q4HR PRN PRN Reason: Dyspepsia Heparin Sodium (Porcine) (Heparin) 5,000 unit SUBCUT BID JUAN CARLOS Sodium Chloride (Normal Saline 0.9%) 1,000 mls @ 100 mls/hr IV CONT JUAN CARLOS Last Admin: 03/08/20 14:14 Dose: 100 mls/hr Documented by: RAFA Potassium Chloride 60 meq/ (Sodium Chloride) 530 mls @ 88.333 mls/hr IV NOW ONE Stop: 03/08/20 19:56 Last Admin: 03/08/20 14:47 Dose: 88.333 mls/hr Documented by: RAFA Cosigned by: FABIOLA Magnesium Sulfate (Magnesium Sulfate) 2 gm in 50 mls @ 25 mls/hr IV NOW ONE Stop: 03/08/20 16:35 Last Admin: 03/08/20 14:47 Dose: 25 mls/hr Documented by: RAFA Cosigned by: FABIOLA Magnesium Hydroxide (Milk Of Magnesia) 30 ml PO DAILY PRN PRN Reason: Constipation Metoclopramide HCl (Reglan) 10 mg IV Q6HR PRN PRN Reason: Nausea And Vomiting Ondansetron HCl (Zofran) 4 mg IV Q4HR PRN PRN Reason: Nausea Pantoprazole Sodium (Protonix) 40 mg IV BID JUAN CARLOS Prochlorperazine (Compazine) 10 mg IV Q6HR PRN PRN Reason: Nausea Promethazine HCl (Phenadoz) 12.5 mg MI Q6HR PRN PRN Reason: Nausea And Vomiting Last Admin: 03/08/20 14:14 Dose: 12.5 mg Documented by: RAFA Discontinued Medications Al Hydrox/Mg Hydrox/Simethicone 20 ml/ Lidocaine HCl 15 ml 0 ml PO NOW ONE Stop: 03/08/20 13:43 Last Admin: 03/08/20 14:34 Dose: Not Given Documented by: RAFA Diphenhydramine HCl (Benadryl) 50 mg IV NOW ONE Stop: 03/08/20 10:41 Last Admin: 03/08/20 10:50 Dose: 50 mg Documented by: GABBY Sodium Chloride (Normal Saline 0.9%) 1,000 mls @ 1,000 mls/hr IV BOLUS ONE Stop: 03/08/20 09:31 Last Infusion: 03/08/20 10:42 Dose: 0 mls/hr Documented by: Admin: 03/08/20 08:36 Dose: 1,000 mls/hr Documented by: GABBY Sodium Chloride (Normal Saline 0.9%) 1,000 mls @ 1,000 mls/hr IV BOLUS ONE Stop: 03/08/20 09:32 Last Infusion: 03/08/20 12:35 Dose: 0 mls/hr Documented by: Admin: 03/08/20 10:49 Dose: 1,000 mls/hr Documented by: GABBY Vancomycin HCl (Vancomycin) 1,000 mg in 200 mls @ 200 mls/hr IV NOW ONE Stop: 03/08/20 12:16 Last Admin: 03/08/20 11:49 Dose: Not Given Documented by: ALIYA Ciprofloxacin (Cipro) 400 mg in 200 mls @ 200 mls/hr IV NOW JUAN CARLOS Last Infusion: 03/08/20 13:03 Dose: 0 mls/hr Documented by: Admin: 03/08/20 11:51 Dose: 200 mls/hr Documented by: ALIYA Metronidazole (Flagyl) 500 mg in 100 mls @ 100 mls/hr IV NOW ONE Stop: 03/08/20 12:17 Last Infusion: 03/08/20 14:34 Dose: 0 mls/hr Documented by: Admin: 03/08/20 13:03 Dose: 100 mls/hr Documented by: ALIYA Lorazepam (Ativan) 0.25 mg IV Q6HR PRN PRN Reason: Nausea And Vomiting Last Admin: 03/08/20 14:14 Dose: 0.25 mg Documented by: RAFA Metoclopramide HCl (Reglan) 10 mg IV NOW ONE Stop: 03/08/20 10:41 Last Admin: 03/08/20 10:50 Dose: 10 mg Documented by: GABBY Morphine Sulfate (Morphine) 2 mg IV NOW ONE Stop: 03/08/20 09:11 Last Admin: 03/08/20 09:18 Dose: 2 mg Documented by: GABBY Ondansetron HCl (Zofran) 4 mg IV NOW ONE Stop: 03/08/20 08:33 Last Admin: 03/08/20 08:37 Dose: 4 mg Documented by: GABBY Ondansetron HCl (Zofran) 4 mg IV NOW ONE Stop: 03/08/20 09:14 Last Admin: 03/08/20 09:18 Dose: 4 mg Documented by: GABBY Ondansetron HCl (Zofran) 4 mg IV Q4HR JUAN CARLOS Vital Signs Vital signs: Vital Signs - 8 hr 03/08/20 07:44 03/08/20 08:56 03/08/20 11:01 Temperature 97.8 F Pulse Rate 58 L 92 H 74 Respiratory Rate 22 18 18 Blood Pressure 178/82 H Blood Pressure [rt arm] 167/87 H 157/97 H Pulse Oximetry 100 99 100 MDM - Nausea/Vomiting/Diarrhea Medical Records Attestation: I reviewed the patient's medical records. Lab Data Attestation: I reviewed the patient's lab results. Result diagrams: 03/08/20 08:00 03/08/20 08:00 Labs: Lab Results 03/08/20 03/08/20 03/08/20 Range/Units 08:00 08:00 08:00 WBC 23.7 H (4.5-11.0) X10^3/uL RBC 4.63 (4.0-5.2) X10^6/uL Hgb 14.1 (12.0-16.0) g/dL Hct 41.6 (36-46) % MCV 89.9 (80-100) fL MCH 30.6 (26-34) PG MCHC 34.0 (30-36) % RDW 14.0 (11.6-14.8) % Plt Count 417 H (150-400) X10^3/uL Neut % (Auto) 91.6 H (50-75) % Lymph % (Auto) 5.5 L (25-40) % [place] % (Auto) 2.6 L (3-14) % Eos % (Auto) 0.0 L (2-4) % Baso % (Auto) 0.3 (0-2) % Neut # (Auto) 31654 H (0508-7901) /uL Lymph # (Auto) 1300 (7121-1290) /uL [place] # (Auto) 600 (0-900) /uL Eos # (Auto) 0 (0-450) /uL Baso # (Auto) 100 (0-100) /uL Sodium 143 (137-145) mmol/L Potassium 3.5 (3.4-5.1) mmol/L Chloride 106 (98-107) mmol/L Carbon Dioxide 22 (22-32) mmol/L BUN 19 H (7-17) mg/dL Creatinine 0.54 (0.52-1.04) mg/dL Estimated GFR > 60.0 (>60) mL/min BUN/Creatinine Ratio 35.2 H (6-22) Glucose 164 H (70-100) mg/dL Lactate 2.8 H (0.7-2.1) mmol/L Calcium 10.1 (8.4-10.2) mg/dL Total Bilirubin 0.7 (0.2-1.3) mg/dL AST 35 (14-36) IU/L ALT 24 (<35) IU/L Alkaline Phosphatase 97 (38-126) U/L Lactate Dehydrogenase 553 (313-618) U/L Total Creatine Kinase (30-135) U/L CK-MB (CK-2) (<2.37) ng/mL CK-MB (CK-2) Rel Index (1.5-5.0) % Troponin I (0.01-0.034) ng/mL Total Protein 9.1 H (6.3-8.2) g/dL Albumin 5.3 H (3.5-5.0) g/dL Globulin 3.8 (1.7-4.1) g/dL Albumin/Globulin Ratio 1.4 (1.0-2.8) Lipase 57 (23-300) U/L Urine Color Urine Appearance Urine pH (4.5-8.0) Ur Specific [place] (1.000-1.035) Urine Protein (Negative) Urine Glucose (UA) (Negative) g/dL Urine Ketones (NEGATIVE) Urine Occult Blood (Negative) Urine Nitrate (Negative) Urine Bilirubin (NEGATIVE) Urine Urobilinogen (0.2) E.U./dL Ur Leukocyte Esterase (NEGATIVE) Urine RBC (0-5/HPF) Urine WBC (0-5/HPF) Ur Squamous Epith Cells (0-5/HPF) Urine Bacteria (None) Ur Culture Indicated? 03/08/20 03/08/20 Range/Units 08:55 11:13 WBC (4.5-11.0) X10^3/uL RBC (4.0-5.2) X10^6/uL Hgb (12.0-16.0) g/dL Hct (36-46) % MCV (80-100) fL MCH (26-34) PG MCHC (30-36) % RDW (11.6-14.8) % Plt Count (150-400) X10^3/uL Neut % (Auto) (50-75) % Lymph % (Auto) (25-40) % [place] % (Auto) (3-14) % Eos % (Auto) (2-4) % Baso % (Auto) (0-2) % Neut # (Auto) (5324-4196) /uL Lymph # (Auto) (8142-4494) /uL [place] # (Auto) (0-900) /uL Eos # (Auto) (0-450) /uL Baso # (Auto) (0-100) /uL Sodium (137-145) mmol/L Potassium (3.4-5.1) mmol/L Chloride (98-107) mmol/L Carbon Dioxide (22-32) mmol/L BUN (7-17) mg/dL Creatinine (0.52-1.04) mg/dL Estimated GFR (>60) mL/min BUN/Creatinine Ratio (6-22) Glucose (70-100) mg/dL Lactate (0.7-2.1) mmol/L Calcium (8.4-10.2) mg/dL Total Bilirubin (0.2-1.3) mg/dL AST (14-36) IU/L ALT (<35) IU/L Alkaline Phosphatase (38-126) U/L Lactate Dehydrogenase (313-618) U/L Total Creatine Kinase 175 H (30-135) U/L CK-MB (CK-2) 2.30 (<2.37) ng/mL CK-MB (CK-2) Rel Index 1.3 L (1.5-5.0) % Troponin I < 0.012 (0.01-0.034) ng/mL Total Protein (6.3-8.2) g/dL Albumin (3.5-5.0) g/dL Globulin (1.7-4.1) g/dL Albumin/Globulin Ratio (1.0-2.8) Lipase (23-300) U/L Urine Color Yellow Urine Appearance Clear Urine pH 7.0 (4.5-8.0) Ur Specific [place] <=1.005 (1.000-1.035) Urine Protein 2+ H (Negative) Urine Glucose (UA) Negative (Negative) g/dL Urine Ketones 2+ H (NEGATIVE) Urine Occult Blood 2+ H (Negative) Urine Nitrate Negative (Negative) Urine Bilirubin Negative (NEGATIVE) Urine Urobilinogen 0.2 (0.2) E.U./dL Ur Leukocyte Esterase Negative (NEGATIVE) Urine RBC 5-10/hpf H (0-5/HPF) Urine WBC None seen (0-5/HPF) Ur Squamous Epith Cells 0-1 /hpf (0-5/HPF) Urine Bacteria None seen (None) Ur Culture Indicated? Cult not indicated ECG Data Attestation: I personally reviewed and interpreted this ECG as follows: Interpretation: The patient just started to complain of chest pain. Her EKG obtained on March 08 at 11:01 a.m. revealed a ventricular rate of 65 with normal sinus rhythm. Her MI interval is normal at 134 milliseconds QRS is 82 m illiseconds duration QTC is prolonged at 517 milliseconds. [place] is normal. The patient has an inverted T-wave in lead V1. There are no other acute diagnostic ST or T-wave changes noted in the EKG. She has some slight nonspecific ST segment changes in leads V3 V4 V5. There are no changes suggestive of an acute injury or ischemia. Discharge Plan Departure Patient Disposition: Admitted as Observation Clinical Impression: H/O ulcerative colitis, Dehydration Nausea and vomiting Qualifiers: Vomiting type: unspecified Vomiting Intractability: non-intractable Qualified Code(s): R11.2 - Nausea with vomiting, unspecified Diarrhea Qualifiers: Diarrhea type: unspecified type Qualified Code(s): R19.7 - Diarrhea, unspecif ied Abdominal pain Qualifiers: Abdominal location: generalized Qualified Code(s): R10.84 - Generalized abdominal pain Discharge Date/Time: 03/08/20 13:04 Referrals: Ha Gutierres DO [Primary Care Provider] - Admit Date/Time: 03/08/20 12:37 Admit Provider: Tanya Chambers
[2020-03-08 10:35] LABS: Reflexed Lactate in 2 Hours Y
[2020-03-08] MEDS: diphenhydrAMINE 50 MG/ML VIAL IV (10:50)
[2020-03-08] MEDS: METOCLOPRAMIDE 10 MG/2 ML INJ IV (10:50)
--- NOTE | 2020-03-08 10:58 | DI.RAD.S_ITS ---
PROCEDURE: XR CHEST 1V INDICATIONS: chest pain TECHNIQUE: One view of the chest was acquired. COMPARISON: None. FINDINGS: Surgical changes and devices: None. Lungs and pleura: Lungs are clear. No pleural effusions or pneumothorax. Mediastinum: Mediastinal contours appear normal. Heart size is normal. Bones and chest wall: No suspicious bony lesions. Overlying soft tissues appear unremarkable. IMPRESSION: No evidence acute pulmonary process. Dictated by: Rajeev Powell M.D. on 03/08/2020 at 10:21 Approved by: Rajeev Powell M.D. on 03/08/2020 at 10:21
--- NOTE | 2020-03-08 10:59 | PC.NURSE ---
Pt reports new onset left sided chest pain. She states is started a few minutes ago. describes as tightness and constant, 3/10, does not radiate. Provider notified. Applied to telemetry, called RT for EKG, and awaiting chest xray. vss
[2020-03-08 11:28] LABS: Creatine Kinase 175 U/L (30-135)
[2020-03-08 11:41] LABS: Troponin I < 0.012 ng/mL (0.01-0.034)
[2020-03-08 11:43] LABS: CKMB % Relative Index 1.3 % (1.5-5.0)
[2020-03-08] MEDS: CIPROFLOXACIN 400 MG/200 ML PIGGYBACK 200 MG IV (11:51)
[2020-03-08 13:02] LABS: Lactate 2HR (Lactic Acid Rflx) 1.8 mmol/L (0.7-2.1)
[2020-03-08] MEDS: metroNIDAZOLE 500 MG/100 ML PIGGYBACK 100 MG IV (13:03)
--- NOTE | 2020-03-08 14:04 | DI.US.S_ITS ---
PROCEDURE: US ABDOMEN COMPLETE INDICATIONS: NAUSEA,VOMITTING,DIARRHEA TECHNIQUE: Real-time scanning was performed of the abdominal and retroperitoneal organs, with image documentation. COMPARISON: [facility], CT, CT ABDOMEN PELVIS W CON, 03/08/2020, 9:16. FINDINGS: Liver: Liver is normal in size and homogeneous in echotexture. Gallbladder: Gallbladder is unremarkable. No gallstones or gallbladder wall thickening. No fluid around the gallbladder. No sonographic Stacy sign. Biliary ducts: Intrahepatic bile ducts are non-dilated. Extrahepatic bile duct caliber measures 5 mm. Normal is 6-7 mm or less in diameter, or 10 mm or less post-cholecystectomy. Pancreas: Visualized portions of the pancreas are sonographically normal. Spleen: Spleen is normal in size and homogeneous in echotexture. Kidneys: Kidneys are normal in size and echotexture. Right kidney measures 11.0 cm long; left kidney measures 10.5 cm long. No hydronephrosis or nephrolithiasis. No solid masses. Aorta: Visualized aorta is normal in caliber at less than 3 cm. Iliacs: Proximal common iliac arteries are normal in caliber at less than 2.5 cm. IVC: Intrahepatic inferior vena cava is patent. Miscellaneous: No free abdominal fluid. IMPRESSION: 1. Unremarkable abdominal shunt with no evidence of gallstone disease. Dictated by: Rajeev Powell M.D. on 03/08/2020 at 14:17 Approved by: Rajeev Powell M.D. on 03/08/2020 at 14:20
[2020-03-08 14:12] LABS: Magnesium 1.8 mg/dL (1.6-2.3)
[2020-03-08] MEDS: PROMETHAZINE 12.5 MG SUPP PR (14:14)
[2020-03-08] MEDS: LORazepam 2 MG/ML INJ 0.25 MG IV (14:14)
[2020-03-08] MEDS: SODIUM CHLORIDE 0.9% 1,000 ML 100 ML IV (14:14)
[2020-03-08 14:32] LABS: Procalcitonin < 0.05 ng/mL (<0.5)
[2020-03-08 14:38] LABS: TSH w/ Reflex to FT4 1.01 uIU/mL (0.47-4.68)
[2020-03-08] MEDS: MAGNESIUM SULFATE 2 GM/50 ML PIGGYBACK IV (14:47)
[2020-03-08] MEDS: POTASSIUM CHLORIDE 60 MEQ in SODIUM CHLORIDE 0.9% 500 ML 88.333 ML IV (14:47)
--- NOTE | 2020-03-08 14:47 | P.HP_ITS ---
History of Present Illness History of Present Illness Date Patient Seen: 03/08/20 Chief complaint: VOMITING SINCE LAST NIGHT Narrative: Tonya Matson is a 54-year-old female with a past medical history significant for hypertension, hyperlipidemia, paroxysmal atrial fibrillation not on a nticoagulation, gout, chronic pain, PTSD, seasonal allergies, reported colitis but has never had endoscopy or colonoscopy, and pancreatitis who presented to the ED for abrupt onset nausea, vomiting and diarrhea. The patient reports that at 10:30 a.m. yesterday evening she began having nausea with projectile vomiting in subsequent diarrhea. She reported that she has vomited multiple times likely up to 50. She denies fevers or chills. She reports she ate shredded beef chili that her neighbors made for her and her and her nor neighbors are sick. She has had nothing else out of the ordinary in her diet. She was treated for possible PUD last year and is on Protonix. She has never received endoscopy or colonoscopy. She denies history of Crohn's or ulcerative colitis. The patient reports she is adopted but knows her family history and denies family history of IBD or colon cancer. She reports her biological mother of a stomach tumor in her 40s. She believes she may have had pancreatitis in the past. She denies current alcohol or recreational drug use. The patient currently endorses mild headache, epigastric abdominal discomfort, nausea. She has had no episodes of vomiting since she has been the hospital. She had an episode of diarrhea in the ER but was not collected. She had an episode of chest tightness in the ER which has resolved. Her cardiac enzymes were negative and EKG was negative for acute ischemia. She has no other complaints and denies sore throat, cough, chest pain or pressure, shortness of breath, fever, chills, dysuria, or constipation. The patient is being admitted observation for rehydration and rule out infectious etiology. 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 Father Gout Heart disease Social History: household members significant other Prior Living Arrangements Mobile home Safety & Behavioral: Feels Safe in Current Yes Environment Been Physically Hurt or No Threatened By a Person Suicidal Ideation Description None Suicide Plan Description No Plan Tobacco & Substance use: Smoking Status Former, 1 ppd x2 years alcohol intake None Substance Use Type Does not use The patient is retired and reports she worked for the [employer]. She is currently seeking disability. She is x7 years. She has 3 sons, 2 with epilepsy and other with unknown GI issues. Meds Home Medications and Allergies Home Medications Medication Instructions Recorded Confirmed Type loratadine 10 mg tablet 10 mg PO DAILY PRN #30 tab 02/20/18 03/08/20 Rx Acyclovir 5% 1 applic TOPICAL 5XD PRN 06/05/18 03/08/20 History valacyclovir 1 gram tablet 1,000 mg PO BID PRN #30 tab 09/18/18 03/08/20 Rx cyclobenzaprine 5 mg tablet 5 mg PO BIDP PRN #30 tab 01/31/19 03/08/20 Rx metoprolol succinate 25 mg 25 mg PO QDAY #30 ter 06/19/19 03/08/20 Rx tablet,extended release 24 hr ondansetron 4 mg disintegrating 4 mg PO DAILY PRN #10 tab 06/24/19 03/08/20 Rx tablet pantoprazole 40 mg tablet,delayed 40 mg PO DAILY #30 tab 08/23/19 03/08/20 Rx release lisinopril 10 mg tablet 10 mg PO DAILY #90 tab 10/22/19 03/08/20 Rx atorvastatin 20 mg tablet 20 mg PO BEDTIME #60 tab 01/22/20 03/08/20 Rx allopurinol 100 mg tablet 100 mg PO DAILY #90 tab 02/19/20 03/08/20 Rx Allergies Allergy/AdvReac Type Severity Reaction Status Date / Time Penicillins [PENICILLINS] Allergy Mild RASH Verified 03/08/20 07:52 oseltamivir [From TAMIFLU] AdvReac Intermediate lesions Verified 03/08/20 07:52 on skin Review of Systems Review of Systems Narrative: A 10 system comprehensive review of systems was conducted with the patient and found to be negative except as above in the History of Present Illness. Exam Vital Signs (past 8 hours): - 03/08/20 07:44 03/08/20 08:56 03/08/20 11:01 Temperature 97.8 F Pulse Rate 58 L 92 H 74 Respiratory Rate 22 18 18 Blood Pressure 178/82 H Blood Pressure [rt arm] 167/87 H 157/97 H Pulse Oximetry 100 99 100 03/08/20 13:44 Temperature 97.8 F Pulse Rate 76 Respiratory Rate 17 Blood Pressure 132/76 Blood Pressure [rt arm] Pulse Oximetry 100 Oxygen Delivery Method Room Air Oxygen Flow Rate 0 Narrative Exam Narrative: General: Middle-aged female sitting in bed and in no acute distress, well- developed, well-nourished, appropriately interactive. HEENT: Normocephalic, atraumatic. External ears without defect. Pupils equal, round, and reactive to light. Anicteric sclerae, moist conjunctivae, and no lid lag. Oropharynx free of erythema and cobble stoning with moist mucosa. Corrected cleft palate. Neck: Supple with full range of motion. No jugular venous distension. No bruits. No lymphadenopathy or thyromegaly. Cardiovascular: Regular rate and rhythm without murmurs, rubs, or gallops appreciated. Pulmonary: Clear to auscultation bilaterally without crackles, wheezes, or rhonchi. Normal respiratory effort with no use of accessory muscles. Abdomen: Soft, bowel sounds present, mild tenderness in epigastrium with voluntary guarding, nondistended. No rebound or signs of acute abdomen. No hepatosplenomegaly or masses appreciated. Extremities: No clubbing, cyanosis, or edema. Amputated right pinky. Skin: Normal temperature, turgor, and texture; no rash, ulcers, or subcutaneous nodules appreciated. Neurological: Cranial nerves grossly intact. Normal muscle strength, tone, and bulk. Reflexes, coordination, and sensory function within normal limits. No known gait impairment. Psychiatric: Normal mood and affect. Alert and oriented to person, place, and time. Objective Labs Result Diagrams: 03/08/20 08:00 03/08/20 08:00 Labs: Laboratory Results - last 24 hr 03/08/20 03/08/20 03/08/20 08:00 08:00 08:00 WBC 23.7 H RBC 4.63 Hgb 14.1 Hct 41.6 MCV 89.9 MCH 30.6 MCHC 34.0 RDW 14.0 Plt Count 417 H Neut % (Auto) 91.6 H Lymph % (Auto) 5.5 L [place] % (Auto) 2.6 L Eos % (Auto) 0.0 L Baso % (Auto) 0.3 Neut # (Auto) 30853 H Lymph # (Auto) 1300 [place] # (Auto) 600 Eos # (Auto) 0 Baso # (Auto) 100 Sodium 143 Potassium 3.5 Chloride 106 Carbon Dioxide 22 BUN 19 H Creatinine 0.54 Estimated GFR > 60.0 BUN/Creatinine Ratio 35.2 H Glucose 164 H Lactate 2.8 H Calcium 10.1 Magnesium Total Bilirubin 0.7 AST 35 ALT 24 Alkaline Phosphatase 97 Lactate Dehydrogenase 553 Total Creatine Kinase CK-MB (CK-2) CK-MB (CK-2) Rel Index Troponin I Total Protein 9.1 H Albumin 5.3 H Globulin 3.8 Albumin/Globulin Ratio 1.4 Lipase 57 Procalcitonin TSH Urine Color Urine Appearance Urine pH Ur Specific [place] Urine Protein Urine Glucose (UA) Urine Ketones Urine Occult Blood Urine Nitrate Urine Bilirubin Urine Urobilinogen Ur Leukocyte Esterase Urine RBC Urine WBC Ur Squamous Epith Cells Urine Bacteria Ur Culture Indicated? 03/08/20 03/08/20 03/08/20 08:55 11:13 12:45 WBC RBC Hgb Hct MCV MCH MCHC RDW Plt Count Neut % (Auto) Lymph % (Auto) [place] % (Auto) Eos % (Auto) Baso % (Auto) Neut # (Auto) Lymph # (Auto) [place] # (Auto) Eos # (Auto) Baso # (Auto) Sodium Potassium Chloride Carbon Dioxide BUN Creatinine Estimated GFR BUN/Creatinine Ratio Glucose Lactate 1.8 Calcium Magnesium Total Bilirubin AST ALT Alkaline Phosphatase Lactate Dehydrogenase Total Creatine Kinase 175 H CK-MB (CK-2) 2.30 CK-MB (CK-2) Rel Index 1.3 L Troponin I < 0.012 Total Protein Albumin Globulin Albumin/Globulin Ratio Lipase Procalcitonin TSH Urine Color Yellow Urine Appearance Clear Urine pH 7.0 Ur Specific [place] <=1.005 Urine Protein 2+ H Urine Glucose (UA) Negative Urine Ketones 2+ H Urine Occult Blood 2+ H Urine Nitrate Negative Urine Bilirubin Negative Urine Urobilinogen 0.2 Ur Leukocyte Esterase Negative Urine RBC 5-10/hpf H Urine WBC None seen Ur Squamous Epith Cells 0-1 /hpf Urine Bacteria None seen Ur Culture Indicated? Cult not indicated 03/08/20 03/08/20 03/08/20 12:46 12:46 12:46 WBC RBC Hgb Hct MCV MCH MCHC RDW Plt Count Neut % (Auto) Lymph % (Auto) [place] % (Auto) Eos % (Auto) Baso % (Auto) Neut # (Auto) Lymph # (Auto) [place] # (Auto) Eos # (Auto) Baso # (Auto) Sodium Potassium Chloride Carbon Dioxide BUN Creatinine Estimated GFR BUN/Creatinine Ratio Glucose Lactate Calcium Magnesium 1.8 Total Bilirubin AST ALT Alkaline Phosphatase Lactate Dehydrogenase Total Creatine Kinase CK-MB (CK-2) CK-MB (CK-2) Rel Index Troponin I Total Protein Albumin Globulin Albumin/Globulin Ratio Lipase Procalcitonin < 0.05 TSH 1.01 Urine Color Urine Appearance Urine pH Ur Specific [place] Urine Protein Urine Glucose (UA) Urine Ketones Urine Occult Blood Urine Nitrate Urine Bilirubin Urine Urobilinogen Ur Leukocyte Esterase Urine RBC Urine WBC Ur Squamous Epith Cells Urine Bacteria Ur Culture Indicated? Assessment & Plan Assessment & Plan narrative: Tonya Matson is a 54-year-old female with a past medical history significant for hypertension, hyperlipidemia, paroxysmal atrial fibrillation not on anticoagulation, gout, chronic pain, PTSD, seasonal allergies, reported colitis but has never had endoscopy or colonoscopy, and pancreatitis who presented to the ED for abrupt onset nausea, vomiting and diarrhea. 1. Acute nausea, vomiting, and diarrhea with mild dehydration, present on admission. Active. -Patient reports abrupt onset severe nausea, vomiting and diarrhea that started 10:30 the night prior to admission. Patient denies recent antibiotic use or exposure to C diff. -Differential diagnosis includes: Viral gastroenteritis versus infectious diarrhea versus peptic ulcer disease versus cyclic vomiting syndrome. -CT abdomen and pelvis with contrast demonstrated no evident acute abdominal process with sigmoid diverticulosis without evidence of diverticulitis. -Initial WBC 23.7 with PMNs 91.6% that is likely reactive. No other systemic signs of infection and procalcitonin negative < 0.05, afebrile, chest x-ray negative, and UA negative. Patient appears slightly dehydrated with thrombocytosis (Plt 417) and lactic acidosis 2.8 which readily resolved with IV fluid hydration with lactate now 1.8. -Patient with reported history of pancreatitis but lipase is normal at 57. -Patient has been treated empirically for possible peptic ulcer disease since last year with pantoprazole 40 mg daily. Ordered famotidine 20 mg IV twice daily for now due to possibility for infectious diarrhea and C difficile infection. -Received 2 L NS in ED. Continue normal saline at 100 mL/hr until adequately taking in PO intake. -Ordered GI stool PCR pending. -Ordered Zofran 4 mg every 4 hours as needed for nausea, Compazine 10 mg every 6 hours as needed for nausea, Reglan 10 mg every 6 hours as needed for nausea and promethazine 10 mg every 6 hours per rectum as needed for nausea. -Continue heart healthy diet as tolerated. 2. Paroxysmal atrial fibrillation, chronic, present on admission. Stable. -Patient is in sinus rhythm on admission. -Continue metoprolol succinate 25 mg daily. -Patient is not on anticoagulation as deemed low risk. -Continue to monitor electrolytes closely and replete as necessary if patient continues to have intractable nausea, vomiting and diarrhea. Goal K > 4.0 and Mg > 2.0. 3. Hypertension, chronic, present on admission. Stable. -Continue lisinopril 10 mg daily and metoprolol succinate 25 mg daily. 4. Hyperlipidemia, chronic, present on admission. Stable. -Continue atorvastatin 20 mg daily at bedtime. 5. Gout, chronic, present on admission. Stable. -Does not represent acute gout flare. -Continue allopurinol 100 mg daily. 6. Chronic pain syndrome, present on admission. Stable. -Continue cyclobenzaprine 5 mg twice daily as needed for muscle spasm. 7. Seasonal allergies, chronic, present on admission. Stable. -Continue home loratadine 10 mg daily as needed. Code status: Full code DVT prophylaxis: SQ heparin Patient is admitted under observation status with expected length of stay less than 2 midnights due to severity of presenting symptoms, risk of adverse event, and complexity of treatment plan. Quality VTE Deep Vein Thrombosis/Pulmonary Embolism Present on Admission: No
--- NOTE | 2020-03-08 15:29 | PC.NURSE ---
Admit Note Admitted to room 210 from ER at 1310 via wheelchair. Able to walk self to bed, steady on feet. Alert and oriented x3. Initially denied nausea on admit but reported sudden onset of nausea shortly after arrival. Dr. Chambers notified and STAT EKG ordered due to QT prolongation in ER, promethazine supp and IV ativan administered while waiting for EKG result. Results of EKG to Dr. Chambers and pt ok'd for zofran and reglan at this time, portable tele in place. No loose stools or emesis noted - pt aware of need for stool and urine sample. Oriented to room/bed/tv/call light controls. Call light within reach. Cell phone, glasses at bedside. Clothing and wallet in room closet, declines to lock up valuables. Reports nausea improved on reassessment. Denies pain.
--- NOTE | 2020-03-08 16:17 | PC.NURSE ---
Addendum entered by Roland Mendieta R.N. 03/08/20 22:47: Patient in bed with eyes closed. All meds due this shift were given. No episode of loose stools, N/V all through out the shift. Denies pain, SOB, chest pain. Still awaiting for covid 19 screening result and stool sample for GI panel. Left AC access intact. Call light within reach. Addendum entered by Roland Mendieta R.N. 03/08/20 18:16: Toxicology screening came back positive for opiates and marijuana. Awaiting for MD's recommendation/advise. Original Note: Patient sitting in her bed watching TV beginning of the shift. Alert and oriented x4. Covid 19 testing performed and was sent to lab awaiting for the result. Stool and urine sample for tox screen still pending- patient made aware. Physical assesment performed, lungs CTA. No any skin issues noted except for the tiny bruise on her left lower abdomen per pt report she thinks she got it from kayaking. Abdomen is soft and non tender. BT present x4. Pt denies any pain or any discomfort at this time. Patient reports she feels a lot better after receiving Ativan earlier. Call light within reach.
--- NOTE | 2020-03-08 16:42 | PC.NURSE ---
[employer], Ama, informs this publications writer @ beginning of shift pt in afib with CVR. Dr. Chambers in house and was informed of this information.
[2020-03-08 18:00] LABS: UR Morphine/Opiate cutoff 300 Positive (Negative); Ur Creatinine Normal (Normal); Ur Specific Gravity Normal (Normal); Urine Amphetamines Negative (Negative); Urine Barbiturates Negative (Negative); Urine Benzodiazepines Negative (Negative); Urine Cocaine Negative (Negative); Urine MDMA Negative (Negative); Urine Methadone Negative (Negative); Urine Methamphetamines Negative (Negative); Urine Oxycodone Negative (Negative); Urine Phencyclidine Negative (Negative); Urine Tetrahydrocannabinol Positive (Negative); Urine Tricyclic Antidepressant Negative (Negative); Urine pH Normal (Normal)
[2020-03-08] MEDS: ATORVASTATIN 20 MG TABLET PO (21:10)
[2020-03-08] MEDS: FAMOTIDINE 20 MG/50 ML PIGGYBACK 200 MG IV (21:10)
[2020-03-08] MEDS: ACETAMINOPHEN 325 MG TABLET 650 MG PO (21:10)
[2020-03-08] MEDS: HEPARIN 5,000 UNIT/ML VIAL 5000 UNIT SUBCUT (21:11)
--- NOTE | 2020-03-08 23:41 | PC.NURSE ---
Addendum entered by Velvet Adames R.N. 03/09/20 06:56: IV site leaking so discontinued. Discussed restart with MARK Harris, as patient is expected to discharge today. Stated to leave IV out at this time and see what Dr Chambers wants to do when she comes in. Telemetry discontinued. Original Note: Patient is alert and oriented. Breath sounds diminished but CTA with RA sat of 98%. HRR; last telemetry reading was SR. Denies nausea. BT present and abdomen is soft but tender across lower abdomen; rates discomfort as 5/10 but last Tylenol given was 2109 so too early to repeat so provided warm blanket for comfort. Denies dysuria, frequency, urgency with urination and is getting up to bathroom with SBA. Able to turn self in bed. Wearing bilateral calf SCD's. Fall risk score is moderate; bed alarm is activated. On contact + droplet/special aerosolized precautions until results from COVID 19 test returned.
[2020-03-09] MEDS: SODIUM CHLORIDE 0.9% 1,000 ML 100 ML IV (01:01)
[2020-03-09] MEDS: ACETAMINOPHEN 325 MG TABLET 650 MG PO ×2 (03:08→08:17)
[2020-03-09 03:18] VITALS: BP 120/79; PULSE 77; RESP 16; TEMP 36.3; O2SAT 97
[2020-03-09 05:16] LABS: BUN Creatinine Ratio 41.5 (6-22); Blood Urea Nitrogen 22 mg/dL (7-17); Calcium 8.9 mg/dL (8.4-10.2); Carbon Dioxide 34 mmol/L (22-32); Chloride 100 mmol/L (98-107); Estimated Glomerular Filt Rate > 60.0 mL/min (>60); Glucose 126 mg/dL (70-100); HEMOLYSIS < 15 (0-50); Magnesium 1.7 mg/dL (1.6-2.3); Potassium 3.7 mmol/L (3.4-5.1); Sodium 138 mmol/L (137-145)
[2020-03-09 05:17] LABS: Add Manual Diff / Slide Review NO; Basophils Absolute Auto 0 /uL (0-100); Basophils Percent Auto 0.5 % (0-2); Eosinophils Absolute Auto 300 /uL (0-450); Eosinophils Percent Auto 6.1 % (2-4); Hematocrit 25.9 % (36-46); Hemoglobin 9.3 g/dL (12.0-16.0); Lymphocytes Absolute Auto 1200 /uL (1100-4500); Lymphocytes Percent Auto 23.7 % (25-40); Mean Corpuscular HGB Conc 35.7 % (30-36); Mean Corpuscular Hemoglobin 32.7 PG (26-34); Mean Corpuscular Volume 91.5 fL (80-100); Monocytes Absolute Auto 500 /uL (0-900); Monocytes Percent Auto 10.7 % (3-14); Neutrophils Absolute Auto 2900 /uL (1500-7000); Platelet Count 233 X10^3/uL (150-400); Red Blood Cell Count 2.83 X10^6/uL (4.0-5.2); Red Cell Distribution Width 13.1 % (11.6-14.8)
[2020-03-09 05:33] LABS: Procalcitonin 0.06 ng/mL (<0.5)
[2020-03-09 07:00] VITALS: BP 144/93; PULSE 75; RESP 18; TEMP 36.6; O2SAT 99
[2020-03-09 07:35] VITALS: O2SAT 97
--- NOTE | 2020-03-09 07:47 | P.DS_ITS ---
History of Present Illness History of Present Illness Date Patient Seen: 03/08/20 Chief complaint: VOMITING SINCE LAST NIGHT Narrative: Written by myself Dr. Chambers: Tonya Matson is a 54-year-old female with a past medical history significant for hypertension, hyperlipidemia, paroxysmal atrial fibrillation not on anticoagulation, gout, chronic pain, PTSD, seasonal allergies, reported colitis but has never had endoscopy or colonoscopy, and pancreatitis who presented to the ED for abrupt onset nausea, vomiting and diarrhea. The patient reports that at 10:30 a.m. yesterday evening she began having nausea with projectile vomiting in subsequent diarrhea. She reported that she has vomited multiple times likely up to 50. She denies fevers or chills. She reports she ate shredded beef chili that her neighbors made for her and her and her nor neighbors are sick. She has had nothing else out of the ordinary in her diet. She was treated for possible PUD last year and is on Protonix. She has never received endoscopy or colonoscopy. She denies history of Crohn's or ulcerative colitis. The patient reports she is adopted but knows her family history and denies family history of IBD or colon cancer. She reports her biological mother of a stomach tumor in her 40s. She believes she may have had pancreatitis in the past. She denies current alcohol or recreational drug use. The patient currently endorses mild headache, epigastric abdominal discomfort, nausea. She has had no episodes of vomiting since she has been the hospital. She had an episode of diarrhea in the ER but was not collected. She had an episode of chest tightness in the ER which has resolved. Her cardiac enzymes were negative and EKG was negative for acute ischemia. She has no other complaints and denies sore throat, cough, chest pain or pressure, shortness of breath, fever, chills, dysuria, or constipation. The patient is being admitted observation for r ehydration and rule out infectious etiology. Discharge Providers Provider Date of admission: 03/08/20 12:37 Discharge Date: 03/09/20 Primary care physician: Ha Gutierres DO Discharge provider: Tanya Chambers DO Summary Hospital Course Discharge Diagnosis: 1. Acute nausea, vomiting, and diarrhea with mild dehydration, present on admission. Active. 2. Paroxysmal atrial fibrillation, chronic, present on admission. Stable. 3. Hypertension, chronic, present on admission. Stable. 4. Hyperlipidemia, chronic, present on admission. Stable. 5. Gout, chronic, present on admission. Stable. 6. Chronic pain syndrome, present on admission. Stable. 7. Seasonal allergies, chronic, present on admission. Stable. Hospital Course: Tonya Matson is a 54-year-old female with a past medical history significant for hypertension, hyperlipidemia, paroxysmal atrial fibrillation not on anticoagulation, gout, chronic pain, PTSD, seasonal allergies, reported colitis but has never had endoscopy or colonoscopy, and pancreatitis who presented to the ED for abrupt onset nausea, vomiting and diarrhea. 1. Acute Campylobacter gastroenteritis with dehydration, present on admission. Resolving. -Patient reports abrupt onset severe nausea, vomiting and diarrhea that started 10:30 the night prior to admission. Patient denies recent antibiotic use or exposure to C. diff. No personal or family history of IBD or colon cancer. Of note, mother reportedly of stomach tumor in her 40s. -CT abdomen and pelvis with contrast demonstrated no evident acute abdominal process with sigmoid diverticulosis without evidence of diverticulitis. -Initial WBC 23.7 with PMNs 91.6% that is likely reactive. No other systemic signs of infection and procalcitonin negative < 0.05, afebrile, chest x-ray negative, and UA negative. Patient appears slightly dehydrated with thrombocytosis (Plt 417) and lactic acidosis 2.8 which readily resolved with IV fluid hydration with lactate now 1.8. Lipase normal at 57. -Patient had mild chest tightness in the ED related to nausea and vomiting that readily resolved with antiemetics. EKG demonstrated normal sinus rhythm with mild QTc prolongation at 517 ms and no acute ischemic changes such as ST elevation or depression. Troponin negative. Repeat EKG demonstrated normal sinus rhythm with QTc interval at 470 ms. Temporary QTc prolongation likely secondary to multiple antiemetics used to control nausea and vomiting. -GI stool PCR positive for Campylobacter. -Urine drug screen positive for opiates and marijuana. Patient received morphine in ED. Patient denies use of marijuana. -Continue supportive treatment with IV fluid hydration with 2 L NS in the ED and normal saline 100 mL/hr until adequately hydrated then discontinued, famotidine 20 mg twice daily, and antiemetics including: Zofran 4 mg every 4 hours as needed for nausea, Compazine 10 mg every 6 hours as needed for nausea, Reglan 10 mg every 6 hours as needed for nausea and promethazine 10 mg every 6 hours per rectum as needed for nausea. -Continued heart healthy diet as tolerated for which the patient tolerated well. -Recommend screening colonoscopy as patient is 4 years overdue and consideration of EGD due to reported family history of mother who of stomach tumor in her 40s and will defer to PCP. 2. Paroxysmal atrial fibrillation, chronic, present on admission. Stable. -Patient is in sinus rhythm on admission. -Continued metoprolol succinate 25 mg daily. -Patient is not on anticoagulation as she has is low risk. -Continued to monitor electrolytes closely and replete as necessary if patient continues to have intractable nausea, vomiting and diarrhea. Goal K > 4.0 and Mg > 2.0. 3. Hypertension, chronic, present on admission. Stable. -Continued lisinopril 10 mg daily and metoprolol succinate 25 mg daily. 4. Hyperlipidemia, chronic, present on admission. Stable. -Continued atorvastatin 20 mg daily at bedtime. 5. Gout, chronic, present on admission. Stable. -Does not represent acute gout flare. -Continued allopurinol 100 mg daily. 6. Chronic pain syndrome, present on admission. Stable. -Continued cyclobenzaprine 5 mg twice daily as needed for muscle spasm. 7. Seasonal allergies, chronic, present on admission. Stable. -Continued home loratadine 10 mg daily as needed. 8. GERD, chronic, present on admission. Stable. -Held PPI due to possibility for C. difficile colitis. Continued famotidine 20 mg IV twice daily. Instructed patient she may resume PPI at time of discharge. Exam Vital Signs (past 8 hours): - 03/09/20 03:18 03/09/20 07:35 Temperature 97.4 F L Pulse Rate 77 Respiratory Rate 16 Blood Pressure 120/79 Pulse Oximetry 97 97 Oxygen Delivery Method Room Air Oxygen Flow Rate 0 Narrative Exam Narrative: General: Middle-aged female sitting in bed and in no acute distress, well- developed, well-nourished, appropriately interactive. HEENT: Normocephalic, atraumatic. External ears without defect. Pupils equal, round, and reactive to light. Anicteric sclerae, moist conjunctivae, and no lid lag. Oropharynx free of erythema and cobble stoning with moist mucosa. Corrected cleft palate. Neck: Supple with full range of motion. No jugular venous distension. No bruits. No lymphadenopathy or thyromegaly. Cardiovascular: Regular rate and rhythm without murmurs, rubs, or gallops appreciated. Pulmonary: Clear to auscultation bilaterally without crackles, wheezes, or rhonchi. Normal respiratory effort with no use of accessory muscles. Abdomen: Soft, bowel sounds present, nontender, nondistended. No rebound or signs of acute abdomen. No hepatosplenomegaly or masses appreciated. Extremities: No clubbing, cyanosis, or edema. Amputated right pinky. Skin: Normal temperature, turgor, and texture; no rash, ulcers, or subcutaneous nodules appreciated. Neurological: Cranial nerves grossly intact. Psychiatric: Normal mood and affect. Alert and oriented to person, place, and time. Objective Labs Result Diagrams: 03/09/20 04:50 03/09/20 04:50 Labs: Laboratory Results - last 24 hr 03/08/20 03/08/20 03/08/20 08:00 08:00 08:00 WBC 23.7 H RBC 4.63 Hgb 14.1 Hct 41.6 MCV 89.9 MCH 30.6 MCHC 34.0 RDW 14.0 Plt Count 417 H Neut % (Auto) 91.6 H Lymph % (Auto) 5.5 L [place] % (Auto) 2.6 L Eos % (Auto) 0.0 L Baso % (Auto) 0.3 Neut # (Auto) 12733 H Lymph # (Auto) 1300 [place] # (Auto) 600 Eos # (Auto) 0 Baso # (Auto) 100 Sodium 143 Potassium 3.5 Chloride 106 Carbon Dioxide 22 BUN 19 H Creatinine 0.54 Estimated GFR > 60.0 BUN/Creatinine Ratio 35.2 H Glucose 164 H Lactate 2.8 H Calcium 10.1 Magnesium Total Bilirubin 0.7 AST 35 ALT 24 Alkaline Phosphatase 97 Lactate Dehydrogenase 553 Total Creatine Kinase CK-MB (CK-2) CK-MB (CK-2) Rel Index Troponin I Total Protein 9.1 H Albumin 5.3 H Globulin 3.8 Albumin/Globulin Ratio 1.4 Lipase 57 Procalcitonin TSH Urine Color Urine Appearance Urine pH Ur Specific [place] Urine Protein Urine Glucose (UA) Urine Ketones Urine Occult Blood Urine Nitrate Urine Bilirubin Urine Urobilinogen Ur Leukocyte Esterase Urine RBC Urine WBC Ur Squamous Epith Cells Urine Bacteria Ur Culture Indicated? U Opiates 300ng/mL cut Ur Oxycodone Screen Urine Methadone Screen Ur Barbiturates Screen U Tricyclic Antidepress Ur Phencyclidine Scrn Ur Amphetamines Screen U Methamphetamines Scrn Ur MDMA Scrn (Ecstasy) U Benzodiazepines Scrn Urine Cocaine Screen U Marijuana (THC) Screen 03/08/20 03/08/20 03/08/20 08:55 11:13 12:45 WBC RBC Hgb Hct MCV MCH MCHC RDW Plt Count Neut % (Auto) Lymph % (Auto) [place] % (Auto) Eos % (Auto) Baso % (Auto) Neut # (Auto) Lymph # (Auto) [place] # (Auto) Eos # (Auto) Baso # (Auto) Sodium Potassium Chloride Carbon Dioxide BUN Creatinine Estimated GFR BUN/Creatinine Ratio Glucose Lactate 1.8 Calcium Magnesium Total Bilirubin AST ALT Alkaline Phosphatase Lactate Dehydrogenase Total Creatine Kinase 175 H CK-MB (CK-2) 2.30 CK-MB (CK-2) Rel Index 1.3 L Troponin I < 0.012 Total Protein Albumin Globulin Albumin/Globulin Ratio Lipase Procalcitonin TSH Urine Color Yellow Urine Appearance Clear Urine pH 7.0 Ur Specific [place] <=1.005 Urine Protein 2+ H Urine Glucose (UA) Negative Urine Ketones 2+ H Urine Occult Blood 2+ H Urine Nitrate Negative Urine Bilirubin Negative Urine Urobilinogen 0.2 Ur Leukocyte Esterase Negative Urine RBC 5-10/hpf H Urine WBC None seen Ur Squamous Epith Cells 0-1 /hpf Urine Bacteria None seen Ur Culture Indicated? Cult not indicated U Opiates 300ng/mL cut Ur Oxycodone Screen Urine Methadone Screen Ur Barbiturates Screen U Tricyclic Antidepress Ur Phencyclidine Scrn Ur Amphetamines Screen U Methamphetamines Scrn Ur MDMA Scrn (Ecstasy) U Benzodiazepines Scrn Urine Cocaine Screen U Marijuana (THC) Screen 03/08/20 03/08/20 03/08/20 12:46 12:46 12:46 WBC RBC Hgb Hct MCV MCH MCHC RDW Plt Count Neut % (Auto) Lymph % (Auto) [place] % (Auto) Eos % (Auto) Baso % (Auto) Neut # (Auto) Lymph # (Auto) [place] # (Auto) Eos # (Auto) Baso # (Auto) Sodium Potassium Chloride Carbon Dioxide BUN Creatinine Estimated GFR BUN/Creatinine Ratio Glucose Lactate Calcium Magnesium 1.8 Total Bilirubin AST ALT Alkaline Phosphatase Lactate Dehydrogenase Total Creatine Kinase CK-MB (CK-2) CK-MB (CK-2) Rel Index Troponin I Total Protein Albumin Globulin Albumin/Globulin Ratio Lipase Procalcitonin < 0.05 TSH 1.01 Urine Color Urine Appearance Urine pH Ur Specific [place] Urine Protein Urine Glucose (UA) Urine Ketones Urine Occult Blood Urine Nitrate Urine Bilirubin Urine Urobilinogen Ur Leukocyte Esterase Urine RBC Urine WBC Ur Squamous Epith Cells Urine Bacteria Ur Culture Indicated? U Opiates 300ng/mL cut Ur Oxycodone Screen Urine Methadone Screen Ur Barbiturates Screen U Tricyclic Antidepress Ur Phencyclidine Scrn Ur Amphetamines Screen U Methamphetamines Scrn Ur MDMA Scrn (Ecstasy) U Benzodiazepines Scrn Urine Cocaine Screen U Marijuana (THC) Screen 03/08/20 03/09/20 03/09/20 17:58 04:50 04:50 WBC 5.0 D RBC 2.83 L Hgb 9.3 L Hct 25.9 L MCV 91.5 MCH 32.7 MCHC 35.7 RDW 13.1 Plt Count 233 Neut % (Auto) 59.0 D Lymph % (Auto) 23.7 L [place] % (Auto) 10.7 Eos % (Auto) 6.1 H Baso % (Auto) 0.5 Neut # (Auto) 2900 Lymph # (Auto) 1200 [place] # (Auto) 500 Eos # (Auto) 300 Baso # (Auto) 0 Sodium Potassium Chloride Carbon Dioxide BUN Creatinine Estimated GFR BUN/Creatinine Ratio Glucose Lactate Calcium Magnesium Total Bilirubin AST ALT Alkaline Phosphatase Lactate Dehydrogenase Total Creatine Kinase CK-MB (CK-2) CK-MB (CK-2) Rel Index Troponin I Total Protein Albumin Globulin Albumin/Globulin Ratio Lipase Procalcitonin 0.06 TSH Urine Color Urine Appearance Urine pH Ur Specific [place] Urine Protein Urine Glucose (UA) Urine Ketones Urine Occult Blood Urine Nitrate Urine Bilirubin Urine Urobilinogen Ur Leukocyte Esterase Urine RBC Urine WBC Ur Squamous Epith Cells Urine Bacteria Ur Culture Indicated? U Opiates 300ng/mL cut Positive H Ur Oxycodone Screen Negative Urine Methadone Screen Negative Ur Barbiturates Screen Negative U Tricyclic Antidepress Negative Ur Phencyclidine Scrn Negative Ur Amphetamines Screen Negative U Methamphetamines Scrn Negative Ur MDMA Scrn (Ecstasy) Negative U Benzodiazepines Scrn Negative Urine Cocaine Screen Negative U Marijuana (THC) Screen Positive H 03/09/20 04:50 WBC RBC Hgb Hct MCV MCH MCHC RDW Plt Count Neut % (Auto) Lymph % (Auto) [place] % (Auto) Eos % (Auto) Baso % (Auto) Neut # (Auto) Lymph # (Auto) [place] # (Auto) Eos # (Auto) Baso # (Auto) Sodium 138 Potassium 3.7 Chloride 100 Carbon Dioxide 34 H BUN 22 H Creatinine 0.53 Estimated GFR > 60.0 BUN/Creatinine Ratio 41.5 H Glucose 126 H Lactate Calcium 8.9 Magnesium 1.7 Total Bilirubin AST ALT Alkaline Phosphatase Lactate Dehydrogenase Total Creatine Kinase CK-MB (CK-2) CK-MB (CK-2) Rel Index Troponin I Total Protein Albumin Globulin Albumin/Globulin Ratio Lipase Procalcitonin TSH Urine Color Urine Appearance Urine pH Ur Specific [place] Urine Protein Urine Glucose (UA) Urine Ketones Urine Occult Blood Urine Nitrate Urine Bilirubin Urine Urobilinogen Ur Leukocyte Esterase Urine RBC Urine WBC Ur Squamous Epith Cells Urine Bacteria Ur Culture Indicated? U Opiates 300ng/mL cut Ur Oxycodone Screen Urine Methadone Screen Ur Barbiturates Screen U Tricyclic Antidepress Ur Phencyclidine Scrn Ur Amphetamines Screen U Methamphetamines Scrn Ur MDMA Scrn (Ecstasy) U Benzodiazepines Scrn Urine Cocaine Screen U Marijuana (THC) Screen Discharge Plan Discharge Plan Patient Disposition: Home Discharge comment: You are being discharged home. Your nausea, vomiting, and di arrhea were due to bacterial gastroenteritis called Campylobacter which is self- limited, will resolve on its own and the treatment is supportive. Please try to stay well hydrated and drink plenty of fluids. You were prescribed promethazine 25 mg 3 times daily as needed for nausea in addition to your Zofran 4 mg daily as needed for nausea please use ease medications sparingly and only as needed as they can cause heart rhythm prolongation and arrhythmias. Please follow-up with your primary care provider, Dr. Gutierres, in the next 1 week regarding your hospitalization. Recommend screening colonoscopy at the age of [age] years old which your 4 years past due and consideration of upper endoscopy due to family history. Discharge orders & Medications Prescriptions: New promethazine 25 mg tablet 25 mg PO TID PRN (Reason: nausea and vomiting) Qty: 10 RF: 0 Continued Acyclovir 5% ointment 1 applic topical 5XD PRN (Reason: Cold Sores) RF: 0 loratadine [Allergy Relief (loratadine)] 10 mg tablet 10 mg PO DAILY PRN (Reason: allergy symptoms) Qty: 30 RF: 5 valacyclovir 1 gram tablet 1,000 mg PO BID PRN (Reason: recurrent herpetic lesions) Qty: 30 RF: 3 cyclobenzaprine 5 mg tablet 5 mg PO BIDP PRN (Reason: muscle spasm) Qty: 30 RF: 2 ondansetron 4 mg tablet,disintegrating 4 mg PO DAILY PRN (Reason: nausea and vomiting) Qty: 10 RF: 3 pantoprazole 40 mg tablet,delayed release (DR/EC) 40 mg PO DAILY Qty: 30 RF: 6 lisinopril 10 mg tablet 10 mg PO DAILY Qty: 90 RF: 1 atorvastatin 20 mg tablet 20 mg PO BEDTIME Qty: 60 RF: 3 allopurinol 100 mg tablet 100 mg PO DAILY Qty: 90 RF: 1 metoprolol succinate [Toprol XL] 25 mg tablet extended release 24 hr 25 mg PO QDAY Qty: 30 RF: 12 Follow up/Referrals: Ha Gutierres, [Primary Care Provider] - 1 Week Diet/Activity/Treatments Diet: Diet as Tolerated, Low-fat, Low-sodium and Low-cholesterol Activity: Activity as tolerated Visit Report/Discharge Packet Instructions: DI for Bacterial Gastroenteritis -- Adult, Promethazine Visit Report Forms: Patient Portal/API, Stroke Signs & Symptoms Discharge Data Primary Care Provider: Ha Gutierres Attending Provider: Tanya Chambers Admjaimie Date/Time: 03/08/20 12:37 Quality VTE Deep Vein Thrombosis/Pulmonary Embolism Present on Admission: No
--- NOTE | 2020-03-09 08:11 | PC.NURSE ---
Day shift: Pt to d/c home today. No IV access ok's w/ Dr Chambers.
[2020-03-09] MEDS: lisinopriL 10 MG TABLET PO (08:17)
[2020-03-09] MEDS: METOPROLOL ER 25 MG TABLET PO (08:17)
[2020-03-09] MEDS: allopurinoL 100 MG TABLET PO (08:18)
[2020-03-09] MEDS: HEPARIN 5,000 UNIT/ML VIAL 5000 UNIT SUBCUT (08:18)
--- NOTE | 2020-03-09 08:26 | CM.DANOTE ---
DCP/Assessment: Reviewed chart. Patient is a 54yr old female admitted to [facility] under OBS status with vomiting. PCP is Dr. Gutierres. Primary payor is 1)[facility] 2)Medicaid. Met with patient explained CM/SW role. Patient alert and oriented at time of visit. Patient reports that she hopes to d/c home today. Patient completely I in all ADL's. Patient does not have any anticipated d/c planning needs. P: Home when stable. [facility] Discharge Planning/Care Management CM Discharge Assessment Start: 03/09/20 08:22 Freq: Status: Active Protocol: Document 03/09/20 08:22 KJS (Rec: 03/09/20 08:26 [id number]) Discharge Planning Assessment Assigned [employer] [facility] Contact Information Babatunde Tatum (partner) [phone] Advance Directives? No History Provided By Patient,Medical Record Prior Living Arrangements Mobile home Household Members significant other Type of transporation used prior to Drives own vehicle admit Independent with ADL's Yes Is patient alert and oriented? Yes Caregiver for Another No Comment None Barriers to Discharge No Discharge Plan Home Transportation Arrangement Patient has car in [facility] parking lot. Patient plans to drive herself home when medically cleared. Referrals Initiated None needed Whiteboard Updated in Patient Room with Yes name and ext. # of [employer] Tr[employer]ctor Review Status In Process Next Review Type Continued Stay Review
[2020-03-09 08:43] LABS: COVID19 Sendout NOT DETECTED (Not Detect)
[2020-03-09 09:34] LABS: Adenovirus F 40/41 Not Detected (Not Detect); Astrovirus Not Detected (Not Detect); Clostridium difficile toxin AB Not Detected (Not Detect); Cryptosporidium Not Detected (Not Detect); Cyclospora cayetanensis Not Detected (Not Detect); Entamoeba histolytica Not Detected (Not Detect); Enteroaggregative E.coli Not Detected (Not Detect); Enteropathogenic E.coli Not Detected (Not Detect); Enterotoxigenic E.coli It/st Not Detected (Not Detect); Giardia lamblia Not Detected (Not Detect); Norovirus GI/GII Not Detected (Not Detect); Plesiomonsa shigelloides Not Detected (Not Detect); Rotavirus A Not Detected (Not Detect); Salmonella Not Detected (Not Detect); Sapovirus Not Detected (Not Detect); Shiga-like toxin-prod E.coli Not Detected (Not Detect); Shigella/Enteroinvasive E.coli Not Detected (Not Detect); Vibrio Not Detected (Not Detect); Vibrio cholerae Not Detected (Not Detect); Yersinia enterocolitica Not Detected (Not Detect)
[2020-03-09 09:55] LABS: Campylobacter Detected (Not Detect)
--- NOTE | 2020-03-09 10:08 | PC.NURSE ---
Day shift: Reported to Dr Chambers the Camylobacter from stool sample.
[2020-03-09] MEDS: MAGNESIUM CHLORIDE 64 MG TABLET 128 MG PO (10:39)
[2020-03-09] MEDS: POTASSIUM CHLORIDE 20 MEQ TAB 40 MEQ PO (10:39)
[2020-03-09 11:03] VITALS: O2SAT 97
--- NOTE | 2020-03-09 13:09 | PC.NURSE ---
Day shift: Pt taken to her own car in [place] by this technical publications writer. Tolerated well. Paperwork signed and all questions answered. script went to Pt's pharmacy electronic. Pt has all personal belongings.
--- NOTE | 2020-03-13 21:31 | PC.NURSE ---
Late Entry: Potassium infusion complete 03/08 at 2047. Magnesium infusion complete 03/08 at 1647.
== END 2020-03-09 13:10 | disposition home or self-care (01) ==
LOC: ED 12:22 → AC 12:37
PROVIDERS: Admitting Provider Internal Medicine; Emergency Provider Emergency Medicine; PCP Family Medicine; Visit Provider Internal Medicine
DX: A04.5 Campylobacter enteritis (principal); R11.2 Nausea with vomiting, unspecified; R19.7 Diarrhea, unspecified; I48.0 Paroxysmal atrial fibrillation; I10 Essential (primary) hypertension; E78.5 Hyperlipidemia, unspecified; M1A.9XX0 Chronic gout, unspecified, without tophus (tophi); G89.4 Chronic pain syndrome; J30.2 Other seasonal allergic rhinitis; Z11.59 Encounter for screening for other viral diseases
CPT/HCPCS: 36415; 71045; 74177; 76700; 80048; 80053; 80305; 81001; 82550; 82553; 83605; 83615; 83690; 83735; 84145; 84443; 84484; 85025; 87040; 87507; 87635; 93005; 93010; 96361; 96365; 96366; 96367; 96372; 96375; 96376; 99285; G0378; J0744; J1200; J1644; J2060; J2270; J2405; J2765; J3480; Q9967

== ENCOUNTER 2020-09-01 20:38 | Emergency (ER) | payer OTHER, MEDICAID, SELFPAY ==
[2020-03-08 13:47] VITALS: BMI 26.6
[2020-09-01 20:48] VITALS: BP 180/85; PULSE 83; RESP 18; TEMP 36.8; O2SAT 99; BMI 27.4
[2020-09-01] MEDS: ONDANSETRON 4 MG/2 ML INJ IV (21:01)
[2020-09-01 21:06] LABS: Add Manual Diff / Slide Review NO; Basophils Absolute Auto 0 /uL (0-100); Basophils Percent Auto 0.2 % (0-2); Eosinophils Absolute Auto 0 /uL (0-450); Hematocrit 41.6 % (36-46); Hemoglobin 13.5 g/dL (12.0-16.0); Lymphocytes Absolute Auto 1100 /uL (1100-4500); Lymphocytes Percent Auto 5.1 % (25-40); Mean Corpuscular HGB Conc 32.4 % (30-36); Mean Corpuscular Hemoglobin 29.3 PG (26-34); Mean Corpuscular Volume 90.2 fL (80-100); Monocytes Absolute Auto 500 /uL (0-900); Monocytes Percent Auto 2.4 % (3-14); Neutrophils Absolute Auto 19600 /uL (1500-7000); Neutrophils Percent Auto 92.3 % (50-75); Platelet Count 363 X10^3/uL (150-400); Red Blood Cell Count 4.62 X10^6/uL (4.0-5.2); Red Cell Distribution Width 13.8 % (11.6-14.8); White Blood Cell Count 21.2 X10^3/uL (4.5-11.0)
[2020-09-01 21:12] LABS: INR 1.1 (0.9-1.3); Prothrombin Time 12.1 SECONDS (10.1-12.7)
[2020-09-01 21:14] LABS: PTT Partial Thromboplastin Tim 32 SECONDS (26.4-36.2)
[2020-09-01 21:16] LABS: Albumin 5.2 g/dL (3.5-5.0); Albumin Globulin Ratio 1.3 (1.0-2.8); Alkaline Phosphatase 80 U/L (38-126); Aspartate Aminotransferase 40 IU/L (14-36); BUN Creatinine Ratio 35.6 (6-22); Bilirubin Total 0.7 mg/dL (0.2-1.3); Blood Urea Nitrogen 21 mg/dL (7-17); Calcium 9.9 mg/dL (8.4-10.2); Carbon Dioxide 22 mmol/L (22-32); Chloride 104 mmol/L (98-107); Estimated Glomerular Filt Rate > 60.0 mL/min (>60); Glucose 142 mg/dL (70-100); Lipase 31 U/L (23-300); Potassium 3.4 mmol/L (3.4-5.1); Sodium 143 mmol/L (137-145); Total Protein 9.2 g/dL (6.3-8.2)
[2020-09-01 21:24] LABS: Alanine Aminotransferase 46 IU/L (<35); HEMOLYSIS 16 (0-50)
--- NOTE | 2020-09-01 22:11 | ED_ITS ---
HPI - Abdominal Pain General Chief Complaint: Abdominal Pain Stated Complaint: sore throat / vomiting / diarrhea Time Seen by Provider: 09/01/20 21:23 Source: patient Mode of arrival: Ambulatory Limitations: no limitations History of Present Illness HPI narrative: 54-year-old female nonsmoker with history of hypertension, chronic right shoulder pain and history of Campylobacter jejuni presents with a chief complaint of a few days of generalized abdominal pain with nausea, vomiting and diarrhea. She has had multiple episodes of diarrhea and eventually had some blood in it. She denies any bad food, recent travel or use of antibiotics. She is not dizzy nor weak or lightheaded. Her symptoms do not improve after nausea or vomiting here nor do they worsen. She has had no fever or chills. MD complaint: abdominal pain Onset (ago): day(s) Pain Consistency: colicky Location: diffuse Severity: moderate Quality: cramping Radiation: none Relieving factors: nothing Exacerbating factors: nothing Associated symptoms: nausea, vomiting and diarrhea Related Data Home Medications Medication Instructions Recorded Confirmed Acyclovir 5% 1 applic TOPICAL 5XD PRN 06/05/18 05/12/20 Previous Rx's Medication Instructions Recorded loratadine 10 mg tablet 10 mg PO DAILY PRN #30 tab 02/20/18 valacyclovir 1 gram tablet 1,000 mg PO BID PRN #30 tab 09/18/18 cyclobenzaprine 5 mg tablet 5 mg PO BIDP PRN #30 tab 01/31/19 ondansetron 4 mg disintegrating 4 mg PO DAILY PRN #10 tab 06/24/19 tablet atorvastatin 20 mg tablet 20 mg PO BEDTIME #60 tab 01/22/20 allopurinol 100 mg tablet 100 mg PO DAILY #90 tab 02/19/20 promethazine 25 mg PO TID PRN #10 tab 03/09/20 lisinopril 10 mg tablet 10 mg PO DAILY #90 tab 05/05/20 metoprolol succinate 25 mg 25 mg PO QDAY #30 ter 07/14/20 tablet,extended release 24 hr pantoprazole 40 mg tablet,delayed 40 mg PO DAILY #30 tab 07/14/20 release cefuroxime axetil 500 mg tablet 500 mg PO BID #20 tab 08/17/20 hyoscyamine sulfate 0.125 mg PO BID-QID PRN #20 tab 09/01/20 ondansetron 4 mg PO TID-QID PRN #10 tab 09/01/20 Allergies Allergy/AdvReac Type Severity Reaction Status Date / Time Penicillins [PENICILLINS] Allergy Mild RASH Verified 05/12/20 07:53 oseltamivir [From TAMIFLU] AdvReac Intermediate lesions Verified 05/12/20 07:53 on skin Review of Systems Constitutional Constitutional: Denies chills, Denies fatigue, Denies fever(s), Denies frequent falls, Denies lethargy and Denies weakness Eyes Eyes: Denies change in vision, Denies eye discharge, Denies irritation and Denies loss of vision ENT Ears, Nose, Mouth, and Throat: Denies change in voice, Denies dizziness, Denies neck pain, Denies sore throat and Denies throat swelling Cardiovascular Cardiovascular: Denies chest pain, Denies irregular heart rhythm, Denies lightheadedness, Denies palpitations, Denies dyspnea, Denies dyspnea on exertion and Denies orthopnea Respiratory Respiratory: Denies cough, Denies dyspnea, Denies dyspnea on exertion and Denies wheezing Gastrointestinal Gastrointestinal: Reports abdominal pain, Denies change in bowel habits, Reports diarrhea, Reports nausea and Reports vomiting Musculoskeletal Musculoskeletal: Denies neck pain and Denies numbness Integumentary/Breasts Skin/Breast: Denies pruritus, Denies erythema, Denies rash and Denies wounds Neurologic Neurologic: Denies behavioral changes, Denies confusion, Denies dizziness, Denies frequent falls, Denies loss of vision, Denies numbness and Denies weakness Psychiatric Psychiatric: Denies anxiety, Denies behavioral changes, Denies confusion, Denies depression, Denies homicidal ideation and Denies suicidal ideation Endocrine Endocrine: Denies fatigue, Denies flushing and Denies palpitations Hematologic/Lymphatic Hematologic/Lymphatic: Denies easy bruising Allergic/Immunologic Allergic/Immunologic: Denies urticaria, Denies throat swelling and Denies wheezing Patient History Medical History Amputation finger Anxiety (Unknown) Atrial fibrillation Cervical somatic dysfunction Chronic neck pain Chronic pain syndrome (Unknown) Chronic right shoulder pain Congenital deafness (Unknown) Cranial somatic dysfunction Depression (Unknown) Disability examination Hypertension (Unknown) Pain in finger of both hands Paroxysmal atrial fibrillation PTSD (post-traumatic stress disorder) (Unknown) Thoracic region somatic dysfunction Upper extremity somatic dysfunction Surgical History Hx of corrected cleft lip and palate (Unknown) Family History Mother No problems noted. Father Gout Heart disease Social History household members: significant other Smoking Status: Never smoker second hand exposure: No alcohol intake: never substance use type: does not use Smoking Status: Never smoker Substance Use Type: does not use Exam Narrative Exam Narrative: GENERAL: [54] year old patient appears stated age. Well-nourished, well-developed patient, in mild distress. Tearful, rubbing her abdomen HEAD: Atraumatic. Normocephalic. EYES: Pupils equal round and reactive. Extraocular motions intact. No scleral icterus. No injection or drainage. ENT: Nose without bleeding, purulent drainage. Throat without erythema, tonsill ar hypertrophy or exudate. Airway patent. NECK: Trachea midline. Non tender CARDIOVASCULAR: Regular rate and rhythm without murmurs, gallops, or rubs. RESPIRATORY: Clear to auscultation. Breath sounds equal bilaterally. No wheezes, rales, or rhonchi. GASTROINTESTINAL: Abdomen soft, non-tender, nondistended. EXTREMITIES: No edema or joint tenderness. BACK: Nontender without deformity or crepitance. No flank tenderness. NEURO: AOx3. SKIN: No rash or erythema of visible areas Initial Vital Signs Initial Vital Signs: Vital Signs Temperature 98.2 F 09/01/20 20:48 Pulse Rate 83 09/01/20 20:48 Respiratory Rate 18 09/01/20 20:48 Blood Pressure 180/85 H 09/01/20 20:48 Pulse Oximetry 99 09/01/20 20:48 Course Course Course Narrative: Significant improvement after above-stated therapies. Orders Ordered: ED Orders 09/01/20 22:28 CT abdomen pelvis w con Stat Discontinued Medications Metoclopramide HCl (Metoclopramide 10 Mg/2 Ml Inj) 10 mg IV NOW ONE Stop: 09/01/20 22:16 Last Admin: 09/01/20 22:31 Dose: 10 mg Documented by: EDWARD Ondansetron HCl (Ondansetron 4 Mg/2 Ml Inj) 4 mg IV NOW ONE Stop: 09/01/20 20:52 Last Admin: 09/01/20 21:01 Dose: 4 mg Documented by: EZEKIEL Ondansetron HCl (Ondansetron 4 Mg Odt Prepack) 1 bottle MISC SEEINSTR ONE Stop: 09/01/20 23:56 Last Admin: 09/02/20 00:12 Dose: 1 bottle Documented by: HARI Pantoprazole Sodium (Pantoprazole 40 Mg Vial) 40 mg IV NOW ONE Stop: 09/01/20 22:16 Last Admin: 09/01/20 22:31 Dose: 40 mg Documented by: EDWARD Vital Signs Vital signs: Vital Signs - 8 hr 09/01/20 23:44 09/02/20 00:00 09/02/20 00:14 Pulse Rate 67 67 97 H Respiratory Rate 23 19 25 H Blood Pressure 137/83 Pulse Oximetry 97 98 95 MDM - Abdominal Pain Lab Data Result diagrams: 09/01/20 20:55 09/01/20 20:55 Labs: Lab Results 09/01/20 09/01/20 09/01/20 Range/Units 20:55 20:55 20:55 WBC 21.2 H (4.5-11.0) X10^3/uL RBC 4.62 (4.0-5.2) X10^6/uL Hgb 13.5 (12.0-16.0) g/dL Hct 41.6 (36-46) % MCV 90.2 (80-100) fL MCH 29.3 (26-34) PG MCHC 32.4 (30-36) % RDW 13.8 (11.6-14.8) % Plt Count 363 (150-400) X10^3/uL Neut % (Auto) 92.3 H (50-75) % Lymph % (Auto) 5.1 L (25-40) % [place] % (Auto) 2.4 L (3-14) % Eos % (Auto) 0.0 L (2-4) % Baso % (Auto) 0.2 (0-2) % Neut # (Auto) 16340 H (4097-1817) /uL Lymph # (Auto) 1100 (4671-4693) /uL [place] # (Auto) 500 (0-900) /uL Eos # (Auto) 0 (0-450) /uL Baso # (Auto) 0 (0-100) /uL PT 12.1 (10.1-12.7) SECONDS INR 1.1 (0.9-1.3) APTT 32 (26.4-36.2) SECONDS Sodium 143 (137-145) mmol/L Potassium 3.4 (3.4-5.1) mmol/L Chloride 104 (98-107) mmol/L Carbon Dioxide 22 (22-32) mmol/L BUN 21 H (7-17) mg/dL Creatinine 0.59 (0.52-1.04) mg/dL Estimated GFR > 60.0 (>60) mL/min BUN/Creatinine Ratio 35.6 H (6-22) Glucose 142 H (70-100) mg/dL Calcium 9.9 (8.4-10.2) mg/dL Total Bilirubin 0.7 (0.2-1.3) mg/dL AST 40 H (14-36) IU/L ALT 46 H (<35) IU/L Alkaline Phosphatase 80 (38-126) U/L Total Protein 9.2 H (6.3-8.2) g/dL Albumin 5.2 H (3.5-5.0) g/dL Globulin 4.0 (1.7-4.1) g/dL Albumin/Globulin Ratio 1.3 (1.0-2.8) Lipase 31 (23-300) U/L Imaging Data CT scan - abdomen/pelvis: Radiologist's Impression: No significant or acute findings MDM Narrative Medical decision making narrative: Multiple etiologies for patient's symptoms considered including: [Bowel obstruction versus pancreatitis versus gallbladder disease versus started infectious diarrhea. Labs and imaging would make bowel obstruction, pancreatitis and gallbladder disease much less likely.We did discuss the potential of a bacterial stool infection, however the patient is here for multiple hours and could not produce a stool sample. We discussed using antibiotics but elected to hold off in the absence of any lab work demo nstrating an infectious diarrhea that has required antibiotics. She is in agreement and states she will follow-up with her PCP to pursue this if needed Patient's symptoms improved over duration of stay with above-stated therapies. Findings and discharge diagnosis discussed with patient/family followed by verbalization of understanding Return precautions discussed with patient/family whom verbalize understanding. Discharge Plan Departure Patient Disposition: Home Clinical Impression: Vomiting Diarrhea Qualifiers: Diarrhea type: unspecified type Qualified Code(s): R19.7 - Diarrhea, unspecified Instructions: Diarrhea, DI for Dyspepsia, DI for Vomiting -- Adult Activity Restrictions/Additional Instructions: *You have been diagnosed with [nausea, vomiting and diarrhea. Lab work, physical exam CT scan are very reassuring.] *What to do: *Take medications as directed: prescriptions sent to [facility] at your request *Follow up with your primary care provider in 2-3 days, call for an appoint ment. Let them know you were seen in the Emergency Department and that we ask that you be seen in follow up *Return to ER if you should have any new, worsening or concerning symptoms, such as [increasing pain, fever or other bothersome symptoms] 1. Drink plenty of fluids with frequent small sips. 2. For the next 24 hours a clear liquid diet is advised. After that please employ a B.R.A.T. diet which would include bananas, rice, apples, toast and other mild food items Prescriptions: New hyoscyamine sulfate 0.125 mg tablet 0.125 mg PO BID-QID PRN (Reason: dyspepsia) Qty: 20 RF: 0 ondansetron 4 mg tablet,disintegrating 4 mg PO TID-QID PRN (Reason: nausea and vomiting) Qty: 10 RF: 0 No Action Acyclovir 5% ointment 1 applic topical 5XD PRN (Reason: Cold Sores) RF: 0 loratadine [Allergy Relief (loratadine)] 10 mg tablet 10 mg PO DAILY PRN (Reason: allergy symptoms) Qty: 30 RF: 5 valacyclovir 1 gram tablet 1,000 mg PO BID PRN (Reason: recurrent herpetic lesions) Qty: 30 RF: 3 cyclobenzaprine 5 mg tablet 5 mg PO BIDP PRN (Reason: muscle spasm) Qty: 30 RF: 2 ondansetron 4 mg tablet,disintegrating 4 mg PO DAILY PRN (Reason: nausea and vomiting) Qty: 10 RF: 3 atorvastatin 20 mg tablet 20 mg PO BEDTIME Qty: 60 RF: 3 allopurinol 100 mg tablet 100 mg PO DAILY Qty: 90 RF: 1 lisinopril 10 mg tablet 10 mg PO DAILY Qty: 90 RF: 1 pantoprazole 40 mg tablet,delayed release (DR/EC) 40 mg PO DAILY Qty: 30 RF: 6 metoprolol succinate [Toprol XL] 25 mg tablet extended release 24 hr 25 mg PO QDAY Qty: 30 RF: 12 cefuroxime axetil 500 mg tablet 500 mg PO BID Qty: 20 RF: 0 promethazine 25 mg tablet 25 mg PO TID PRN (Reason: nausea and vomiting) Qty: 10 RF: 0 Referrals: Tushar Ruby DO [Primary Care Provider] -
--- NOTE | 2020-09-01 22:28 | DI.CT.S_ITS ---
PROCEDURE: CT ABDOMEN PELVIS W CON INDICATIONS: abdominal pain, N/V/D TECHNIQUE: After the administration of intravenous contrast, 5 mm thick sections acquired from the diaphragm to the symphysis. 5 mm coronal and sagittal reformats were acquired. For radiation dose reduction, the following was used: automated exposure control, adjustment of mA and/or kV according to patient size. COMPARISON: [facility], CT, CT ABDOMEN PELVIS W CON, 03/08/2020, 9:16. FINDINGS: Image quality: Excellent. ABDOMEN: Lung bases: Lung bases are clear. Heart size is normal. Solid organs: There is a small hypodensity redemonstrated within the right hepatic dome which is too small to characterize but likely represents a cyst. The gallbladder appears within normal limits without calcified gallstones. Biliary system is non-dilated. Pancreas enhances normally. No peripancreatic fat stranding or fluid collections. No pancreatic duct dilatation. The spleen is normal in size. No adrenal nodules. Kidneys demonstrate no hydronephrosis. Peritoneum and bowel: Small bowel loops demonstrate normal wall thickness and caliber. The appendix is normal in appearance. There is suggestion of diffuse mild colonic wall thickening dominant within the proximal colon but evaluation is limited by nondistention. Colonic diverticulosis is demonstrated without acute diverticulitis. No free fluid or air. Nodes and vessels: No retroperitoneal or mesenteric adenopathy by size criteria. Aorta and inferior vena cava are normal in size. Miscellaneous: No ventral hernias. PELVIS: Genitourinary: Bladder wall thickness is normal. Miscellaneous: No inguinal hernias or adenopathy. Bones: No suspicious bony lesions. No vertebral body compression fractures. IMPRESSION: 1. Diffuse mild colonic wall thickening suggestive of an infectious or inflammatory colitis with evaluation limited due to nondistention. 2. Colonic diverticulosis without acute diverticulitis. Dictated by: Bertram Argueta M.D. on 09/02/2020 at 8:56 Approved by: Bertram Argueta M.D. on 09/02/2020 at 9:01
[2020-09-01] MEDS: METOCLOPRAMIDE 10 MG/2 ML INJ IV (22:31)
[2020-09-01] MEDS: PANTOPRAZOLE 40 MG VIAL IV (22:31)
[2020-09-01 23:44] VITALS: PULSE 67; RESP 23; O2SAT 97
[2020-09-02] VITALS: PULSE 67; RESP 19; O2SAT 98
[2020-09-02] MEDS: ONDANSETRON 4 MG ODT PREPACK 1 BOTTLE MISC (00:12)
[2020-09-02 00:14] VITALS: BP 137/83; PULSE 97; RESP 25; O2SAT 95
== END 2020-09-02 00:20 | disposition home or self-care (01) ==
PROVIDERS: Emergency Provider Emergency Medicine; PCP Family Medicine
DX: R11.2 Nausea with vomiting, unspecified (principal); R19.7 Diarrhea, unspecified; J02.9 Acute pharyngitis, unspecified; R10.84 Generalized abdominal pain
CPT/HCPCS: 36415; 74177; 80053; 83690; 85025; 85610; 85730; 93005; 96374; 96375; 99283; 99284; C9113; J2405; J2765; Q9967

== ENCOUNTER 2020-11-23 09:43 | Emergency (ER) | payer OTHER, MEDICAID, SELFPAY ==
[2020-03-08 13:47] VITALS: BMI 26.6
[2020-11-23] VITALS (7 sets, daily range): BP systolic 140–182; BP diastolic 80–108; PULSE 62–77; RESP 18; TEMP 36.6; O2SAT 96–100; BMI 27.1
[2020-11-23] MEDS: ONDANSETRON 4 MG ODT PO (09:58)
--- NOTE | 2020-11-23 10:08 | ED.NAVMDI ---
HPI - Nausea/Vomiting/Diarrhea General Chief complaint: Nausea/Vomiting/Diarrhea Stated complaint: nausea/vomiting since 4 am Time Seen by Provider: 11/23/20 09:58 Source: patient Mode of arrival: Ambulatory Limitations: no limitations History of Present Illness HPI Narrative: Patient is a 54-year-old female here for evaluation of nausea and vomiting. She states the symptoms started approximately 0400 hours this morning. She has had issues like this in the past and has had to be hospitalized. Patient states that initially she is told that she has had colitis however was later told that this was not true. Today she is not having any black colored vomit. No change in bowel habits. No recent travel. No recent fevers. No recent camping. She has not tried anything for her symptoms prior to arrival. Related Data Home Medications Medication Instructions Recorded Confirmed Acyclovir 5% 1 applic TOPICAL 5XD PRN 06/05/18 05/12/20 Previous Rx's Medication Instructions Recorded loratadine 10 mg tablet 10 mg PO DAILY PRN #30 tab 02/20/18 valacyclovir 1 gram tablet 1,000 mg PO BID PRN #30 tab 09/18/18 cyclobenzaprine 5 mg tablet 5 mg PO BIDP PRN #30 tab 01/31/19 ondansetron 4 mg disintegrating 4 mg PO DAILY PRN #10 tab 06/24/19 tablet promethazine 25 mg PO TID PRN #10 tab 03/09/20 metoprolol succinate 25 mg 25 mg PO QDAY #30 ter 07/14/20 tablet,extended release 24 hr pantoprazole 40 mg tablet,delayed 40 mg PO DAILY #30 tab 07/14/20 release cefuroxime axetil 500 mg tablet 500 mg PO BID #20 tab 08/17/20 hyoscyamine sulfate 0.125 mg PO BID-QID PRN #20 tab 09/01/20 ondansetron 4 mg PO TID-QID PRN #10 tab 09/01/20 allopurinol 100 mg tablet 100 mg PO DAILY #90 tab 09/21/20 lisinopril 10 mg tablet 10 mg PO DAILY #90 tab 09/21/20 atorvastatin 20 mg tablet See Rx Instructions .ROUTE 11/20/20 .COMPLEX #60 tab ondansetron 4 mg PO Q6H PRN #20 tab 11/23/20 Allergies Allergy/AdvReac Type Severity Reaction Status Date / Time Penicillins [PENICILLINS] Allergy Mild RASH Verified 11/23/20 09:57 oseltamivir [From TAMIFLU] AdvReac Intermediate lesions Verified 11/23/20 09:57 on skin Review of Systems Constitutional Constitutional: Denies fatigue and Denies headache(s) ENT Ears, Nose, Mouth, and Throat: Denies headache(s) Cardiovascular Cardiovascular: Denies chest pain and Denies dyspnea Respiratory Respiratory: Denies dyspnea Gastrointestinal Gastrointestinal: Denies abdominal pain, Denies change in bowel habits, Reports nausea and Reports vomiting Genitourinary Genitourinary: Denies dysuria Genitourinary: Denies dysuria Musculoskeletal Musculoskeletal: Denies arthralgias and Denies myalgias Integumentary/Breasts Skin/Breast: Denies lesions and Denies rash Neurologic Neurologic: Denies behavioral changes and Denies headache(s) Psychiatric Psychiatric: Denies behavioral changes Endocrine Endocrine: Denies fatigue Hematologic/Lymphatic Hematologic/Lymphatic: Denies easy bleeding and Denies easy bruising On Anticoagulants: No Allergic/Immunologic Allergic/Immunologic: Denies urticaria Patient History Medical History Amputation finger Anxiety (Unknown) Atrial fibrillation Cervical somatic dysfunction Chronic neck pain Chronic pain syndrome (Unknown) Chronic right shoulder pain Congenital deafness (Unknown) Cranial somatic dysfunction Depression (Unknown) Disability examination Hypertension (Unknown) Pain in finger of both hands Paroxysmal atrial fibrillation PTSD (post-traumatic stress disorder) (Unknown) Thoracic region somatic dysfunction Upper extremity somatic dysfunction Surgical History Hx of corrected cleft lip and palate (Unknown) Family History Mother No problems noted. Father Gout Heart disease Social History household members: significant other Smoking Status: Never smoker second hand exposure: No alcohol intake: never substance use type: does not use Smoking Status: Never smoker alcohol intake frequency: 0-2 drinks per day Substance Use Type: does not use Exam Initial Vital Signs Initial Vital Signs: Vital Signs Temperature 97.8 F 11/23/20 09:55 Pulse Rate 77 11/23/20 09:55 Respiratory Rate 18 11/23/20 09:55 Blood Pressure 182/108 H 11/23/20 09:55 Pulse Oximetry 99 11/23/20 09:55 Const General: cooperative and comfortable Limitations: mental status not altered HENMT Head: normal to inspection and normocephalic Resp Effort & Inspection: normal respiratory effort Auscultation: clear to auscultation bilaterally Cardio Rate: regular rate Rhythm: regular rhythm GI Inspection: non-distended Palpation: soft, No firm and No tender Skin Lesions: no lesions Rashes: no rashes Neuro General: patient alert, patient awake and patient oriented x3 Cognition: normal cognition Speech: speech normal Extrem General: capillary refill normal Psych Appearance: grossly normal and well kempt Course Orders Ordered: ED Orders 11/23/20 10:46 Complete Blood Count AUTO DIFF Stat Comprehensive Metabolic Panel Stat Lipase Stat Prothrombin Time INR Stat Discontinued Medications Sodium Chloride (Normal Saline 0.9%) 1,000 mls @ 1,000 mls/hr IV BOLUS ONE Stop: 11/23/20 10:52 Ondansetron HCl (Ondansetron 4 Mg/2 Ml Inj) 4 mg IV NOW ONE Stop: 11/23/20 09:54 Ondansetron HCl (Ondansetron 4 Mg Odt) 4 mg PO NOW ONE Stop: 11/23/20 09:55 Last Admin: 11/23/20 09:58 Dose: 4 mg Documented by: HCRISTINE Pantoprazole Sodium (Pantoprazole 40 Mg Vial) 40 mg IV NOW ONE Stop: 11/23/20 10:09 Vital Signs Vital signs: Vital Signs - 8 hr 11/23/20 09:55 11/23/20 10:17 11/23/20 10:30 Temperature 97.8 F Pulse Rate 77 72 73 Respiratory Rate 18 Blood Pressure 182/108 H Pulse Oximetry 99 100 99 11/23/20 11:00 11/23/20 11:30 11/23/20 12:00 Temperature Pulse Rate 62 67 65 Respiratory Rate Blood Pressure Pulse Oximetry 99 98 96 11/23/20 12:04 Temperature Pulse Rate 62 Respiratory Rate Blood Pressure 140/80 Pulse Oximetry 100 MDM - Nausea/Vomiting/Diarrhea Lab Data Attestation: I reviewed the patient's lab results. Result diagrams: 11/23/20 10:46 11/23/20 10:46 Labs: Lab Results 11/23/20 11/23/20 11/23/20 Range/Units 10:46 10:46 10:46 WBC 18.2 H (4.5-11.0) X10^3/uL RBC 4.78 (4.0-5.2) X10^6/uL Hgb 14.3 (12.0-16.0) g/dL Hct 43.1 (36-46) % MCV 90.2 (80-100) fL MCH 29.8 (26-34) PG MCHC 33.1 (30-36) % RDW 13.4 (11.6-14.8) % Plt Count 353 (150-400) X10^3/uL Neut % (Auto) 87.6 H (50-75) % Lymph % (Auto) 9.1 L (25-40) % [place] % (Auto) 2.6 L (3-14) % Eos % (Auto) 0.1 L (2-4) % Baso % (Auto) 0.6 (0-2) % Neut # (Auto) 31585 H (4660-6091) /uL Lymph # (Auto) 1600 (2862-0917) /uL [place] # (Auto) 500 (0-900) /uL Eos # (Auto) 0 (0-450) /uL Baso # (Auto) 100 (0-100) /uL PT 12.5 (10.1-12.7) SECONDS INR 1.1 (0.9-1.3) Sodium 140 (137-145) mmol/L Potassium 4.0 (3.4-5.1) mmol/L Chloride 107 (98-107) mmol/L Carbon Dioxide 26 (22-32) mmol/L BUN 20 H (7-17) mg/dL Creatinine 0.48 L (0.52-1.04) mg/dL Estimated GFR > 60.0 (>60) mL/min BUN/Creatinine Ratio 41.7 H (6-22) Glucose 121 H (70-100) mg/dL Calcium 10.2 (8.4-10.2) mg/dL Total Bilirubin 0.3 (0.2-1.3) mg/dL AST 30 (14-36) IU/L ALT 29 (<35) IU/L Alkaline Phosphatase 77 (38-126) U/L Total Protein 8.7 H (6.3-8.2) g/dL Albumin 5.0 (3.5-5.0) g/dL Globulin 3.7 (1.7-4.1) g/dL Albumin/Globulin Ratio 1.4 (1.0-2.8) Lipase 110 (23-300) U/L MDM Narrative Medical decision making narrative: We had a difficult time obtaining an IV on the patient so she was given oral Zofran. Afterwards she felt much better and was able to tolerate oral intake. Does have a leukocytosis but I suspect this is secondary to the vomiting. She has no abdominal tenderness. I feel we can hold on radiologic studies for now. Was given a prescription for Zofran. Was given return precautions. She expressed understanding and agreement. Discharge Plan Departure Patient Disposition: Home Clinical Impression: Nausea & vomiting Instructions: DI for Nausea -- Adult, DI for Vomiting -- Adult Activity Restrictions/Additional Instructions: Recommend that you use the Zofran as needed for the vomiting. Be sure to drink small amounts of fluid over longer periods of time. Return to the emergency department for any new or worsening symptoms Prescriptions: New ondansetron 4 mg tablet,disintegrating 4 mg PO Q6H PRN (Reason: nausea and vomiting) Qty: 20 RF: 0 No Action Acyclovir 5% ointment 1 applic topical 5XD PRN (Reason: Cold Sores) RF: 0 loratadine [Allergy Relief (loratadine)] 10 mg tablet 10 mg PO DAILY PRN (Reason: allergy symptoms) Qty: 30 RF: 5 valacyclovir 1 gram tablet 1,000 mg PO BID PRN (Reason: recurrent herpetic lesions) Qty: 30 RF: 3 cyclobenzaprine 5 mg tablet 5 mg PO BIDP PRN (Reason: muscle spasm) Qty: 30 RF: 2 ondansetron 4 mg tablet,disintegrating 4 mg PO DAILY PRN (Reason: nausea and vomiting) Qty: 10 RF: 3 pantoprazole 40 mg tablet,delayed release (DR/EC) 40 mg PO DAILY Qty: 30 RF: 6 metoprolol succinate [Toprol XL] 25 mg tablet extended release 24 hr 25 mg PO QDAY Qty: 30 RF: 12 cefuroxime axetil 500 mg tablet 500 mg PO BID Qty: 20 RF: 0 allopurinol 100 mg tablet 100 mg PO DAILY Qty: 90 RF: 2 lisinopril 10 mg tablet 10 mg PO DAILY Qty: 90 RF: 2 atorvastatin 20 mg tablet See Rx Instructions .ROUTE .COMPLEX Qty: 60 RF: 0 promethazine 25 mg tablet 25 mg PO TID PRN (Reason: nausea and vomiting) Qty: 10 RF: 0 hyoscyamine sulfate 0.125 mg tablet 0.125 mg PO BID-QID PRN (Reason: dyspepsia) Qty: 20 RF: 0 ondansetron 4 mg tablet,disintegrating 4 mg PO TID-QID PRN (Reason: nausea and vomiting) Qty: 10 RF: 0 Referrals: Tushar Ruby DO [Primary Care Provider] -
--- NOTE | 2020-11-23 10:22 | PC.NURSE ---
Pt reports awakening with nausea this AM, actively vomiting in room 4. Pt reports history of the same, for which she has been hospitalized several times, states she uses Zofran ODT at home a lot, but is currently out of the medication. Pt denies THC use.
[2020-11-23 10:55] LABS: Add Manual Diff / Slide Review NO; Basophils Absolute Auto 100 /uL (0-100); Basophils Percent Auto 0.6 % (0-2); Eosinophils Absolute Auto 0 /uL (0-450); Eosinophils Percent Auto 0.1 % (2-4); Hematocrit 43.1 % (36-46); Hemoglobin 14.3 g/dL (12.0-16.0); Lymphocytes Absolute Auto 1600 /uL (1100-4500); Lymphocytes Percent Auto 9.1 % (25-40); Mean Corpuscular HGB Conc 33.1 % (30-36); Mean Corpuscular Hemoglobin 29.8 PG (26-34); Mean Corpuscular Volume 90.2 fL (80-100); Monocytes Absolute Auto 500 /uL (0-900); Monocytes Percent Auto 2.6 % (3-14); Neutrophils Absolute Auto 15900 /uL (1500-7000); Neutrophils Percent Auto 87.6 % (50-75); Platelet Count 353 X10^3/uL (150-400); Red Blood Cell Count 4.78 X10^6/uL (4.0-5.2); Red Cell Distribution Width 13.4 % (11.6-14.8); White Blood Cell Count 18.2 X10^3/uL (4.5-11.0)
[2020-11-23 11:02] LABS: INR 1.1 (0.9-1.3); Prothrombin Time 12.5 SECONDS (10.1-12.7)
[2020-11-23 11:12] LABS: Alanine Aminotransferase 29 IU/L (<35); Albumin Globulin Ratio 1.4 (1.0-2.8); Alkaline Phosphatase 77 U/L (38-126); Aspartate Aminotransferase 30 IU/L (14-36); BUN Creatinine Ratio 41.7 (6-22); Bilirubin Total 0.3 mg/dL (0.2-1.3); Blood Urea Nitrogen 20 mg/dL (7-17); Calcium 10.2 mg/dL (8.4-10.2); Carbon Dioxide 26 mmol/L (22-32); Chloride 107 mmol/L (98-107); Estimated Glomerular Filt Rate > 60.0 mL/min (>60); Globulin 3.7 g/dL (1.7-4.1); Glucose 121 mg/dL (70-100); HEMOLYSIS 20 (0-50); Lipase 110 U/L (23-300); Sodium 140 mmol/L (137-145); Total Protein 8.7 g/dL (6.3-8.2)
== END 2020-11-23 12:16 | disposition home or self-care (01) ==
PROVIDERS: Emergency Provider Emergency Medicine; PCP Family Medicine
DX: R11.2 Nausea with vomiting, unspecified (principal); I10 Essential (primary) hypertension; I48.0 Paroxysmal atrial fibrillation
CPT/HCPCS: 80053; 83690; 85025; 85610; 99281; 99283

== ENCOUNTER → 2021-03-12 10:59 | Outpatient (CLI) | payer OTHER, MEDICAID, SELFPAY ==
[2020-03-08 13:47] VITALS: BMI 26.6
--- NOTE | 2021-03-12 11:00 | DI.RAD.S_ITS ---
PROCEDURE: XR HIP W PEL IF DONE RT 2V INDICATIONS: pain TECHNIQUE: AP pelvis with lateral view(s) of the right hip(s). COMPARISON: None. FINDINGS: Bones: No fractures or dislocations. Pelvic ring appears intact. No suspicious bony lesions. Soft tissues: The visualized bowel gas pattern is normal. No suspicious soft tissue calcifications. IMPRESSION: Minimal hip joint osteoarthritis is present bilaterally and no trauma is found. Dictated by: Steven Cristina M.D. on 03/12/2021 at 12:32 Approved by: Steven rCistina M.D. on 03/12/2021 at 12:33
[2021-03-12 11:59] LABS: Add Manual Diff / Slide Review NO; Basophils Absolute Auto 100 /uL (0-100); Basophils Percent Auto 1.2 % (0-2); Eosinophils Absolute Auto 200 /uL (0-450); Eosinophils Percent Auto 1.6 % (2-4); Hematocrit 41.9 % (36-46); Lymphocytes Absolute Auto 2900 /uL (1100-4500); Lymphocytes Percent Auto 28.8 % (25-40); Mean Corpuscular HGB Conc 33.3 % (30-36); Mean Corpuscular Hemoglobin 29.8 PG (26-34); Mean Corpuscular Volume 89.5 fL (80-100); Monocytes Absolute Auto 700 /uL (0-900); Monocytes Percent Auto 7.4 % (3-14); Neutrophils Absolute Auto 6200 /uL (1500-7000); Platelet Count 368 X10^3/uL (150-400); Red Blood Cell Count 4.68 X10^6/uL (4.0-5.2); Red Cell Distribution Width 13.5 % (11.6-14.8); White Blood Cell Count 10.1 X10^3/uL (4.5-11.0)
[2021-03-12 13:21] LABS: Alanine Aminotransferase 17 IU/L (<35); Albumin 4.8 g/dL (3.5-5.0); Albumin Globulin Ratio 1.5 (1.0-2.8); Alkaline Phosphatase 66 U/L (38-126); Aspartate Aminotransferase 22 IU/L (14-36); BUN Creatinine Ratio 19.4 (6-22); Bilirubin Total 0.3 mg/dL (0.2-1.3); Blood Urea Nitrogen 12 mg/dL (7-17); Calcium 10.5 mg/dL (8.4-10.2); Carbon Dioxide 25 mmol/L (22-32); Chloride 106 mmol/L (98-107); Cholesterol 229 mg/dL (140-199); Estimated Glomerular Filt Rate > 60.0 mL/min (>60); Globulin 3.2 g/dL (1.7-4.1); Glucose 111 mg/dL (70-100); HDL Cholesterol 47 mg/dL (40-60); HEMOLYSIS < 15 (0-50); LDL Cholesterol Calculated 129 mg/dL (<100); Potassium 4.3 mmol/L (3.4-5.1); Sodium 139 mmol/L (137-145); Triglycerides 263 mg/dL (35-150)
== END ==
PROVIDERS: PCP Family Medicine; Referring Provider Family Medicine; Visit Provider Family Medicine
DX: E78.2 Mixed hyperlipidemia (principal); I10 Essential (primary) hypertension; M16.0 Bilateral primary osteoarthritis of hip
CPT/HCPCS: 36415; 73502; 80053; 80061; 85025

== ENCOUNTER 2021-06-29 02:55 | Emergency (ER) | payer OTHER, MEDICAID, SELFPAY ==
[2020-03-08 13:47] VITALS: BMI 26.6
[2021-06-29] VITALS (10 sets, daily range): BP systolic 148–167; BP diastolic 78–112; PULSE 54–91; RESP 16–18; TEMP 36.2; O2SAT 95–100; BMI 27.4
--- NOTE | 2021-06-29 03:06 | ED.GENADULT ---
HPI - General Adult <Jerrica Vasquez MD - Last Filed: 06/30/21 03:44> General Chief complaint: Nausea/Vomiting/Diarrhea Stated complaint: woke up feels super sick/nausea Time Seen by Provider: 06/29/21 03:06 History of Present Illness HPI narrative: 55-year-old woman with a history of hyperlipidemia, hypertension, was awaken from sleep this morning with severe nausea and with prior episodes was well aware that severe vomiting would soon followed. She came to the emergency room for further evaluation. She reports no fevers, cough, abdominal pain or diarrhea. No unusual foods. She has had similar episodes of severe vomiting at least twice in the last year without etiology identified. Related Data Home Medications Medication Instructions Recorded Confirmed Acyclovir 5% 1 applic TOPICAL 5XD PRN 06/05/18 03/12/21 Previous Rx's Medication Instructions Recorded loratadine 10 mg tablet (Allergy 10 mg PO DAILY PRN #30 tab 02/20/18 Relief (loratadine)) cyclobenzaprine 5 mg tablet 5 mg PO BIDP PRN #30 tab 01/31/19 ondansetron 4 mg disintegrating 4 mg PO DAILY PRN #10 tab 06/24/19 tablet promethazine 25 mg tablet 25 mg PO TID PRN #10 tab 03/09/20 metoprolol succinate 25 mg 25 mg PO QDAY #30 ter 07/14/20 tablet,extended release 24 hr (Toprol XL) hyoscyamine sulfate 0.125 mg tablet 0.125 mg PO BID-QID PRN #20 tab 09/01/20 ondansetron 4 mg disintegrating 4 mg PO TID-QID PRN #10 tab 09/01/20 tablet allopurinol 100 mg tablet 100 mg PO DAILY #90 tab 09/21/20 pantoprazole 40 mg tablet,delayed 40 mg PO DAILY #60 tab 02/24/21 release ondansetron 4 mg disintegrating See Rx Instructions .ROUTE 04/15/21 tablet .COMPLEX #20 tab atorvastatin 20 mg tablet See Rx Instructions .ROUTE 05/25/21 .COMPLEX #90 tab cefuroxime axetil 500 mg tablet 500 mg PO BID #20 tab 05/28/21 valacyclovir 1 gram tablet 1,000 mg PO BID PRN #30 tab 05/28/21 lisinopril 10 mg tablet See Rx Instructions .ROUTE 06/24/21 .COMPLEX #90 tab Allergies Allergy/AdvReac Type Severity Reaction Status Date / Time Penicillins [PENICILLINS] Allergy Mild RASH Verified 06/29/21 03:08 oseltamivir [From TAMIFLU] AdvReac Intermediate lesions Verified 06/29/21 03:08 on skin Review of Systems <Jerrica Vasquez MD - Last Filed: 06/30/21 03:44> Review of Systems Narrative: Remainder of complete review of systems is otherwise unremarkable except for that included in the HPI. Patient History <Jerrica Vasquez MD - Last Filed: 06/30/21 03:44> Medical History Acute right hip pain Amputation finger Anxiety (Unknown) Atrial fibrillation Cervical somatic dysfunction Chronic neck pain Chronic pain syndrome (Unknown) Chronic right shoulder pain Congenital deafness (Unknown) Cranial somatic dysfunction Depression (Unknown) Disability examination Hypertension (Unknown) Pain in finger of both hands Paroxysmal atrial fibrillation PTSD (post-traumatic stress disorder) (Unknown) Thoracic region somatic dysfunction Upper extremity somatic dysfunction Surgical History Hx of corrected cleft lip and palate (Unknown) Family History Mother No problems noted. Father Gout Heart disease Social History household members: significant other Smoking Status: Never smoker second hand exposure: No alcohol intake: never substance use type: does not use Smoking Status: Never smoker alcohol intake frequency: 0-2 drinks per day Substance Use Type: does not use Exam <Jerrica Vasquez MD - Last Filed: 06/30/21 03:44> Narrative Exam Narrative: General: Appears acutely ill with violent retching. Able to participate with history. Well-nourished well-developed HEENT: Moist mucous membranes, normal sclera with reactive pupils, mildly diaphoretic from the work of retching. Nicely healed scarring from palatal or deformity surgery Neck: , supple Respiratory: Lungs are clear to auscultation, no wheezing no rales no rhonchi. Full and symmetrical air movement Cardiac: Regular rate and rhythm no murmurs no bruits Abdomen: Soft, diffusely tender without rebound or guarding good bowel tones, no flank pain Skin: Warm and mildly diaphoretic no rashes Neurologic: Grossly neurologically intact with no obvious asymmetries or abnormalities Extremities: No trauma, well perfused Psych: Cooperative, appropriate insight and affect Initial Vital Signs Initial Vital Signs: Vital Signs Pulse Oximetry 98 06/29/21 03:04 <Nirmala Little DO - Last Filed: 06/29/21 19:25> Initial Vital Signs Initial Vital Signs: Vital Signs Pulse Oximetry 98 06/29/21 03:04 Course <Jerrica Vasquez MD - Last Filed: 06/30/21 03:44> Orders Ordered: Discontinued Medications Diphenhydramine HCl (Diphenhydramine 50 Mg/Ml Vial) 25 mg IV NOW ONE Stop: 06/29/21 05:10 Last Admin: 06/29/21 05:14 Dose: 25 mg Documented by: DELFINA Haloperidol (Haloperidol 5 Mg/Ml Vial) 2 mg IV NOW ONE Stop: 06/29/21 05:10 Last Admin: 06/29/21 05:15 Dose: 2 mg Documented by: DELFINA Sodium Chloride (Normal Saline 0.9%) 1,000 mls @ 1,000 mls/hr IV BOLUS ONE Stop: 06/29/21 04:11 Last Infusion: 06/29/21 05:22 Dose: 0 mls/hr Documented by: Admin: 06/29/21 03:19 Dose: 1,000 mls/hr Documented by: HARI Metoclopramide HCl (Metoclopramide 10 Mg/2 Ml Inj) 10 mg IV NOW ONE Stop: 06/29/21 03:44 Last Admin: 06/29/21 03:47 Dose: 10 mg Documented by: DELFINA Metoclopramide HCl (Metoclopramide 10 Mg/2 Ml Inj) 10 mg IV NOW ONE Stop: 06/29/21 03:45 Last Admin: 06/29/21 03:47 Dose: Not Given Documented by: DELFINA Ondansetron HCl (Ondansetron 4 Mg/2 Ml Inj) 4 mg IV NOW ONE Stop: 06/29/21 03:12 Last Admin: 06/29/21 03:19 Dose: 4 mg Documented by: HARI Ondansetron HCl (Ondansetron 4 Mg Odt Prepack) 1 bottle MISC SEEINSTR ONE Stop: 06/29/21 06:57 Last Admin: 06/29/21 07:39 Dose: Not Given Documented by: HECTOR Ondansetron HCl (Ondansetron 4 Mg Odt) 4 mg SL NOW ONE Stop: 06/29/21 08:26 Last Admin: 06/29/21 08:46 Dose: 4 mg Documented by: HECTOR Pantoprazole Sodium (Pantoprazole 40 Mg Vial) 40 mg IV NOW ONE Stop: 06/29/21 08:28 Last Admin: 06/29/21 08:46 Dose: 40 mg Documented by: HECTOR Vital Signs Vital signs: Vital Signs - 8 hr 06/29/21 03:04 06/29/21 03:05 06/29/21 03:08 Temperature 97.1 F L Pulse Rate 91 H 77 Respiratory Rate 18 Blood Pressure 167/112 H 167/112 H Pulse Oximetry 98 95 95 06/29/21 03:30 06/29/21 06:03 06/29/21 06:04 Temperature Pulse Rate 71 54 L 62 Respiratory Rate Blood Pressure 158/101 H Pulse Oximetry 100 100 100 06/29/21 06:30 06/29/21 07:34 06/29/21 07:35 Temperature Pulse Rate 60 60 60 Respiratory Rate Blood Pressure 153/89 H Pulse Oximetry 100 99 99 <Nirmala Little, DO - Last Filed: 06/29/21 19:25> Orders Ordered: Discontinued Medications Diphenhydramine HCl (Diphenhydramine 50 Mg/Ml Vial) 25 mg IV NOW ONE Stop: 06/29/21 05:10 Last Admin: 06/29/21 05:14 Dose: 25 mg Documented by: DELFINA Haloperidol (Haloperidol 5 Mg/Ml Vial) 2 mg IV NOW ONE Stop: 06/29/21 05:10 Last Admin: 06/29/21 05:15 Dose: 2 mg Documented by: DELFINA Sodium Chloride (Normal Saline 0.9%) 1,000 mls @ 1,000 mls/hr IV BOLUS ONE Stop: 06/29/21 04:11 Last Infusion: 06/29/21 05:22 Dose: 0 mls/hr Documented by: Admin: 06/29/21 03:19 Dose: 1,000 mls/hr Documented by: HARI Metoclopramide HCl (Metoclopramide 10 Mg/2 Ml Inj) 10 mg IV NOW ONE Stop: 06/29/21 03:44 Last Admin: 06/29/21 03:47 Dose: 10 mg Documented by: DELFINA Metoclopramide HCl (Metoclopramide 10 Mg/2 Ml Inj) 10 mg IV NOW ONE Stop: 06/29/21 03:45 Last Admin: 06/29/21 03:47 Dose: Not Given Documented by: DELFINA Ondansetron HCl (Ondansetron 4 Mg/2 Ml Inj) 4 mg IV NOW ONE Stop: 06/29/21 03:12 Last Admin: 06/29/21 03:19 Dose: 4 mg Documented by: HARI Ondansetron HCl (Ondansetron 4 Mg Odt Prepack) 1 bottle MISC SEEINSTR ONE Stop: 06/29/21 06:57 Last Admin: 06/29/21 07:39 Dose: Not Given Documented by: HECTOR Ondansetron HCl (Ondansetron 4 Mg Odt) 4 mg SL NOW ONE Stop: 06/29/21 08:26 Last Admin: 06/29/21 08:46 Dose: 4 mg Documented by: HECTOR Pantoprazole Sodium (Pantoprazole 40 Mg Vial) 40 mg IV NOW ONE Stop: 06/29/21 08:28 Last Admin: 06/29/21 08:46 Dose: 40 mg Documented by: HECTOR Reevaluation(s) Reevaluation #1: Patient seen independently evaluated by myself. Patient had improved overnight and continues to be nauseated but is not have any vomiting. She denies any pain. Patient has been here several times in the past for somewhat similar symptoms. Patient labs reviewed as well as her GI panel with herself. Patient's vitals have been appropriate. She does use marijuana this may be a contributing source but unclear. Patient's abdominal exam is benign as well as her rest of her exam. She did request something additional for nausea. Does prove she has had Protonix in the past which is helpful. She was to receive a prepack of Zofran but because of the medications she received in the fact that she drove herself she is being held at this time secondary to wish to drive herself home and she had received Haldol and Benadryl at approximately 0515. Patient aware of the current plan. Time: 08:28 Vital Signs Vital signs: Vital Signs - 8 hr 06/29/21 03:04 06/29/21 03:05 06/29/21 03:08 Temperature 97.1 F L Pulse Rate 91 H 77 Respiratory Rate 18 Blood Pressure 167/112 H 167/112 H Pulse Oximetry 98 95 95 06/29/21 03:30 06/29/21 06:03 06/29/21 06:04 Temperature Pulse Rate 71 54 L 62 Respiratory Rate Blood Pressure 158/101 H Pulse Oximetry 100 100 100 06/29/21 06:30 06/29/21 07:34 06/29/21 07:35 Temperature Pulse Rate 60 60 60 Respiratory Rate Blood Pressure 153/89 H Pulse Oximetry 100 99 99 Medical Decision Making <Jerrica Vasquez MD - Last Filed: 06/30/21 03:44> Lab Data Result diagrams: 06/29/21 03:15 06/29/21 03:15 Labs: Lab Results 06/29/21 06/29/21 06/29/21 Range/Units 03:00 03:15 03:15 WBC 12.5 H (4.5-11.0) X10^3/uL RBC 5.14 (4.0-5.2) X10^6/uL Hgb 15.4 (12.0-16.0) g/dL Hct 46.1 H (36-46) % MCV 89.6 (80-100) fL MCH 29.9 (26-34) PG MCHC 33.3 (30-36) % RDW 13.8 (11.6-14.8) % Plt Count 369 (150-400) X10^3/uL Neut % (Auto) 74.1 (50-75) % Lymph % (Auto) 22.1 L (25-40) % Mellette % (Auto) 2.7 L (3-14) % Eos % (Auto) 0.5 L (2-4) % Baso % (Auto) 0.6 (0-2) % Neut # (Auto) 9200 H (6181-3459) /uL Lymph # (Auto) 2800 (3721-1637) /uL Mellette # (Auto) 300 (0-900) /uL Eos # (Auto) 100 (0-450) /uL Baso # (Auto) 100 (0-100) /uL Sodium 145 (137-145) mmol/L Potassium 3.7 (3.4-5.1) mmol/L Chloride 103 (98-107) mmol/L Carbon Dioxide 24 (22-32) mmol/L BUN 19 H (7-17) mg/dL Creatinine 0.61 (0.52-1.04) mg/dL Estimated GFR > 60.0 (>60) mL/min BUN/Creatinine Ratio 31.1 H (6-22) Glucose 177 H (70-100) mg/dL Calcium 10.5 H (8.4-10.2) mg/dL Total Bilirubin 0.3 (0.2-1.3) mg/dL AST 31 (14-36) IU/L ALT 28 (<35) IU/L Alkaline Phosphatase 77 (38-126) U/L Troponin I (0.01-0.034) ng/mL Total Protein 9.4 H (6.3-8.2) g/dL Albumin 5.4 H (3.5-5.0) g/dL Globulin 4.0 (1.7-4.1) g/dL Albumin/Globulin Ratio 1.4 (1.0-2.8) Lipase 152 (23-300) U/L Stl C. cayetanensis PCR (Not Detect) Stool Rotavirus (PCR) (Not Detect) Stool Adenovirus (PCR) (Not Detect) Stool Astrovirus (PCR) (Not Detect) Stool Cryptosporidium PCR (Not Detect) Stl E.coli Shiga Tox PCR (Not Detect) St Sh/Enteroin Ecoli PCR (Not Detect) Stool E coli O157 PCR (Not Detect) Stl Enterotoxigenic E PCR (Not Detect) Stool EPEC (PCR) (Not Detect) Stl E. histolytica PCR (Not Detect) Stool Giardia Lamblia PCR (Not Detect) Stool Sapovirus (PCR) (Not Detect) Stl P. shigelloides PCR (Not Detect) St Y.enterocolitica PCR (Not Detect) Stool Vibrio (PCR) (Not Detect) Stl Vibrio cholerae PCR (Not Detect) Stl Enteroaggr Ecoli PCR (Not Detect) Stl Norovirus GI/GII PCR (Not Detect) Campylobacter (PCR) (Not Detect) C. difficile Tox (PCR) (Not Detect) SARS-CoV-2 (PCR) Negative (Negative) Salmonella (PCR) (Not Detect) 06/29/21 06/29/21 Range/Units 03:15 06:00 WBC (4.5-11.0) X10^3/uL RBC (4.0-5.2) X10^6/uL Hgb (12.0-16.0) g/dL Hct (36-46) % MCV (80-100) fL MCH (26-34) PG MCHC (30-36) % RDW (11.6-14.8) % Plt Count (150-400) X10^3/uL Neut % (Auto) (50-75) % Lymph % (Auto) (25-40) % Mellette % (Auto) (3-14) % Eos % (Auto) (2-4) % Baso % (Auto) (0-2) % Neut # (Auto) (0219-8224) /uL Lymph # (Auto) (7855-4597) /uL Mellette # (Auto) (0-900) /uL Eos # (Auto) (0-450) /uL Baso # (Auto) (0-100) /uL Sodium (137-145) mmol/L Potassium (3.4-5.1) mmol/L Chloride (98-107) mmol/L Carbon Dioxide (22-32) mmol/L BUN (7-17) mg/dL Creatinine (0.52-1.04) mg/dL Estimated GFR (>60) mL/min BUN/Creatinine Ratio (6-22) Glucose (70-100) mg/dL Calcium (8.4-10.2) mg/dL Total Bilirubin (0.2-1.3) mg/dL AST (14-36) IU/L ALT (<35) IU/L Alkaline Phosphatase (38-126) U/L Troponin I < 0.012 (0.01-0.034) ng/mL Total Protein (6.3-8.2) g/dL Albumin (3.5-5.0) g/dL Globulin (1.7-4.1) g/dL Albumin/Globulin Ratio (1.0-2.8) Lipase (23-300) U/L Stl C. cayetanensis PCR Not detected (Not Detect) Stool Rotavirus (PCR) Not detected (Not Detect) Stool Adenovirus (PCR) Not detected (Not Detect) Stool Astrovirus (PCR) Not detected (Not Detect) Stool Cryptosporidium PCR Not detected (Not Detect) Stl E.coli Shiga Tox PCR Not detected (Not Detect) St Sh/Enteroin Ecoli PCR Not detected (Not Detect) Stool E coli O157 PCR Not detected (Not Detect) Stl Enterotoxigenic E PCR Not detected (Not Detect) Stool EPEC (PCR) Not detected (Not Detect) Stl E. histolytica PCR Not detected (Not Detect) Stool Giardia Lamblia PCR Not detected (Not Detect) Stool Sapovirus (PCR) Not detected (Not Detect) Stl P. shigelloides PCR Not detected (Not Detect) St Y.enterocolitica PCR Not detected (Not Detect) Stool Vibrio (PCR) Not detected (Not Detect) Stl Vibrio cholerae PCR Not detected (Not Detect) Stl Enteroaggr Ecoli PCR Not detected (Not Detect) Stl Norovirus GI/GII PCR Not detected (Not Detect) Campylobacter (PCR) Not detected (Not Detect) C. difficile Tox (PCR) Not detected (Not Detect) SARS-CoV-2 (PCR) (Negative) Salmonella (PCR) Not detected (Not Detect) MDM Narrative Medical decision making narrative: 55-year-old woman with acute onset of severe nausea followed by retching and now is developing some diarrhea. Previous episode had been Campylobacter but she has not had any similar exposures. There is no jaundice, no fevers, she is passing both flatus and developing some diarrhea. No evidence of mass or obstruction. Suspect some type of viral etiology at this point. Stool be sent for PCR. COVID test is negative today Little response to Zofran and IV fluids. 10 mg of Reglan is added with, again, minimal response. Will try Haldol 2 mg and Benadryl 25 mg IV. With the addition of Haldol and Benadryl nausea is finally controlled. She does continue to have diarrhea. She is able to keep apple juice down. Was ready to discharge her and told her I would contact her with results of the stool later today and then she said she was planning to drive herself home. Given her significant nausea the recent Haldol Benadryl and the fact that she has been up all night, driving and does not seem safe until some of these medications of had a chance to metabolize a bit more. She states that her partner does not drive and she has no friends that she might be able to call to help get her home. She is given some apple juice and we will reassess in the near future to see if the apple juice is staying down and re-evaluate safety of driving herself home. <Nirmala Little, DO - Last Filed: 06/29/21 19:25> Lab Data Labs: Lab Results 06/29/21 06/29/21 06/29/21 Range/Units 03:00 03:15 03:15 WBC 12.5 H (4.5-11.0) X10^3/uL RBC 5.14 (4.0-5.2) X10^6/uL Hgb 15.4 (12.0-16.0) g/dL Hct 46.1 H (36-46) % MCV 89.6 (80-100) fL MCH 29.9 (26-34) PG MCHC 33.3 (30-36) % RDW 13.8 (11.6-14.8) % Plt Count 369 (150-400) X10^3/uL Neut % (Auto) 74.1 (50-75) % Lymph % (Auto) 22.1 L (25-40) % Mellette % (Auto) 2.7 L (3-14) % Eos % (Auto) 0.5 L (2-4) % Baso % (Auto) 0.6 (0-2) % Neut # (Auto) 9200 H (6420-8620) /uL Lymph # (Auto) 2800 (4378-5510) /uL Mellette # (Auto) 300 (0-900) /uL Eos # (Auto) 100 (0-450) /uL Baso # (Auto) 100 (0-100) /uL Sodium 145 (137-145) mmol/L Potassium 3.7 (3.4-5.1) mmol/L Chloride 103 (98-107) mmol/L Carbon Dioxide 24 (22-32) mmol/L BUN 19 H (7-17) mg/dL Creatinine 0.61 (0.52-1.04) mg/dL Estimated GFR > 60.0 (>60) mL/min BUN/Creatinine Ratio 31.1 H (6-22) Glucose 177 H (70-100) mg/dL Calcium 10.5 H (8.4-10.2) mg/dL Total Bilirubin 0.3 (0.2-1.3) mg/dL AST 31 (14-36) IU/L ALT 28 (<35) IU/L Alkaline Phosphatase 77 (38-126) U/L Troponin I (0.01-0.034) ng/mL Total Protein 9.4 H (6.3-8.2) g/dL Albumin 5.4 H (3.5-5.0) g/dL Globulin 4.0 (1.7-4.1) g/dL Albumin/Globulin Ratio 1.4 (1.0-2.8) Lipase 152 (23-300) U/L Stl C. cayetanensis PCR (Not Detect) Stool Rotavirus (PCR) (Not Detect) Stool Adenovirus (PCR) (Not Detect) Stool Astrovirus (PCR) (Not Detect) Stool Cryptosporidium PCR (Not Detect) Stl E.coli Shiga Tox PCR (Not Detect) St Sh/Enteroin Ecoli PCR (Not Detect) Stool E coli O157 PCR (Not Detect) Stl Enterotoxigenic E PCR (Not Detect) Stool EPEC (PCR) (Not Detect) Stl E. histolytica PCR (Not Detect) Stool Giardia Lamblia PCR (Not Detect) Stool Sapovirus (PCR) (Not Detect) Stl P. shigelloides PCR (Not Detect) St Y.enterocolitica PCR (Not Detect) Stool Vibrio (PCR) (Not Detect) Stl Vibrio cholerae PCR (Not Detect) Stl Enteroaggr Ecoli PCR (Not Detect) Stl Norovirus GI/GII PCR (Not Detect) Campylobacter (PCR) (Not Detect) C. difficile Tox (PCR) (Not Detect) SARS-CoV-2 (PCR) Negative (Negative) Salmonella (PCR) (Not Detect) 06/29/21 06/29/21 Range/Units 03:15 06:00 WBC (4.5-11.0) X10^3/uL RBC (4.0-5.2) X10^6/uL Hgb (12.0-16.0) g/dL Hct (36-46) % MCV (80-100) fL MCH (26-34) PG MCHC (30-36) % RDW (11.6-14.8) % Plt Count (150-400) X10^3/uL Neut % (Auto) (50-75) % Lymph % (Auto) (25-40) % Mellette % (Auto) (3-14) % Eos % (Auto) (2-4) % Baso % (Auto) (0-2) % Neut # (Auto) (9875-4015) /uL Lymph # (Auto) (3675-5115) /uL Mellette # (Auto) (0-900) /uL Eos # (Auto) (0-450) /uL Baso # (Auto) (0-100) /uL Sodium (137-145) mmol/L Potassium (3.4-5.1) mmol/L Chloride (98-107) mmol/L Carbon Dioxide (22-32) mmol/L BUN (7-17) mg/dL Creatinine (0.52-1.04) mg/dL Estimated GFR (>60) mL/min BUN/Creatinine Ratio (6-22) Glucose (70-100) mg/dL Calcium (8.4-10.2) mg/dL Total Bilirubin (0.2-1.3) mg/dL AST (14-36) IU/L ALT (<35) IU/L Alkaline Phosphatase (38-126) U/L Troponin I < 0.012 (0.01-0.034) ng/mL Total Protein (6.3-8.2) g/dL Albumin (3.5-5.0) g/dL Globulin (1.7-4.1) g/dL Albumin/Globulin Ratio (1.0-2.8) Lipase (23-300) U/L Stl C. cayetanensis PCR Not detected (Not Detect) Stool Rotavirus (PCR) Not detected (Not Detect) Stool Adenovirus (PCR) Not detected (Not Detect) Stool Astrovirus (PCR) Not detected (Not Detect) Stool Cryptosporidium PCR Not detected (Not Detect) Stl E.coli Shiga Tox PCR Not detected (Not Detect) St Sh/Enteroin Ecoli PCR Not detected (Not Detect) Stool E coli O157 PCR Not detected (Not Detect) Stl Enterotoxigenic E PCR Not detected (Not Detect) Stool EPEC (PCR) Not detected (Not Detect) Stl E. histolytica PCR Not detected (Not Detect) Stool Giardia Lamblia PCR Not detected (Not Detect) Stool Sapovirus (PCR) Not detected (Not Detect) Stl P. shigelloides PCR Not detected (Not Detect) St Y.enterocolitica PCR Not detected (Not Detect) Stool Vibrio (PCR) Not detected (Not Detect) Stl Vibrio cholerae PCR Not detected (Not Detect) Stl Enteroaggr Ecoli PCR Not detected (Not Detect) Stl Norovirus GI/GII PCR Not detected (Not Detect) Campylobacter (PCR) Not detected (Not Detect) C. difficile Tox (PCR) Not detected (Not Detect) SARS-CoV-2 (PCR) (Negative) Salmonella (PCR) Not detected (Not Detect) MDM Narrative Medical decision making narrative: 55-year-old woman with acute onset of severe nausea followed by retching and now is developing some diarrhea. Previous episode had been Campylobacter but she has not had any similar exposures. There is no jaundice, no fevers, she is passing both flatus and developing some diarrhea. No evidence of mass or obstruction. Suspect some type of viral etiology at this point. Stool be sent for PCR. COVID test is negative today Little response to Zofran and IV fluids. 10 mg of Reglan is added with, again, minimal response. Will try Haldol 2 mg and Benadryl 25 mg IV. With the addition of Haldol and Benadryl nausea is finally controlled. She does continue to have diarrhea. She is able to keep apple juice down. Was ready to discharge her and told her I would contact her with results of the stool later today and then she said she was planning to drive herself home. Given her significant nausea the recent Haldol Benadryl and the fact that she has been up all night, driving and does not seem safe until some of these medications of had a chance to metabolize a bit more. She states that her partner does not drive and she has no friends that she might be able to call to help get her home. She is given some apple juice and we will reassess in the near future to see if the apple juice is staying down and re-evaluate safety of driving herself home. Discharge Plan Departure Patient Disposition: Home Clinical Impression: Nausea and vomiting Qualifiers: Vomiting type: unspecified Vomiting Intractability: non-intractable Qualified Code(s): R11.2 - Nausea with vomiting, unspecified Diarrhea Qualifiers: Diarrhea type: unspecified type Qualified Code(s): R19.7 - Diarrhea, unspecified Instructions: DI for Vomiting -- Adult Activity Restrictions/Additional Instructions: Follow-up with your physician for recheck. It may be helpful to take medications such as Pepcid 40 mg once daily. This is available [id number]. Return for fevers, persistent vomiting, new abdominal, back or flank pain, black or bloody stools, new chest pain or shortness of breath or other new or concerning symptoms. Prescriptions: No Action Acyclovir 5% ointment 1 applic topical 5XD PRN (Reason: Cold Sores) RF: 0 loratadine [Allergy Relief (loratadine)] 10 mg tablet 10 mg PO DAILY PRN (Reason: allergy symptoms) Qty: 30 RF: 5 cyclobenzaprine 5 mg tablet 5 mg PO BIDP PRN (Reason: muscle spasm) Qty: 30 RF: 2 ondansetron 4 mg tablet,disintegrating 4 mg PO DAILY PRN (Reason: nausea and vomiting) Qty: 10 RF: 3 metoprolol succinate [Toprol XL] 25 mg tablet extended release 24 hr 25 mg PO QDAY Qty: 30 RF: 12 allopurinol 100 mg tablet 100 mg PO DAILY Qty: 90 RF: 2 pantoprazole 40 mg tablet,delayed release (DR/EC) 40 mg PO DAILY Qty: 60 RF: 2 ondansetron 4 mg tablet,disintegrating See Rx Instructions .ROUTE .COMPLEX Qty: 20 RF: 0 atorvastatin 20 mg tablet See Rx Instructions .ROUTE .COMPLEX Qty: 90 RF: 0 cefuroxime axetil 500 mg tablet 500 mg PO BID Qty: 20 RF: 0 valacyclovir 1 gram tablet 1,000 mg PO BID PRN (Reason: recurrent herpetic lesions) Qty: 30 RF: 3 lisinopril 10 mg tablet See Rx Instructions .ROUTE .COMPLEX Qty: 90 RF: 0 promethazine 25 mg tablet 25 mg PO TID PRN (Reason: nausea and vomiting) Qty: 10 RF: 0 hyoscyamine sulfate 0.125 mg tablet 0.125 mg PO BID-QID PRN (Reason: dyspepsia) Qty: 20 RF: 0 ondansetron 4 mg tablet,disintegrating 4 mg PO TID-QID PRN (Reason: nausea and vomiting) Qty: 10 RF: 0 Referrals: Tushar Ruby DO [Primary Care Provider] - ED Sign-out <Jerrica Vasquez MD - Last Filed: 06/30/21 03:44> Cosign ED Attending Terryature Attestation: I was immediately available in the department for consultation throughout this patient's visit. I agree with documentation as above. Jerrica Vasquez MD
--- NOTE | 2021-06-29 03:17 | ED_ITS ---
HPI - General Adult General Chief complaint: Nausea/Vomiting/Diarrhea Stated complaint: woke up feels super sick/nausea Time Seen by Provider: 06/29/21 03:06 Source: patient Mode of arrival: Ambulatory Limitations: no limitations History of Present Illness HPI narrative: 55-year-old woman with history of hyperlipidemia, hypertension, paroxysmal atrial fibrillation with prior episodes of acute vomiting uncertain etiology. Today she was awakened abruptly from sleep at about 2:00 a.m. with severe nausea and came to the emergency room knowing that it was going to proceed to severe vomiting as it has in the past. She is not having any black or red vomitus. She is having some urinary incontinence with the violence of the emesis. She is not having any black stools or diarrhea. She describes no recent headaches, fevers, cough, chills, chest pain or palpitation. Related Data Home Medications Medication Instructions Recorded Confirmed Acyclovir 5% 1 applic TOPICAL 5XD PRN 06/05/18 03/12/21 Previous Rx's Medication Instructions Recorded loratadine 10 mg tablet (Allergy 10 mg PO DAILY PRN #30 tab 02/20/18 Relief (loratadine)) cyclobenzaprine 5 mg tablet 5 mg PO BIDP PRN #30 tab 01/31/19 ondansetron 4 mg disintegrating 4 mg PO DAILY PRN #10 tab 06/24/19 tablet promethazine 25 mg tablet 25 mg PO TID PRN #10 tab 03/09/20 metoprolol succinate 25 mg 25 mg PO QDAY #30 ter 07/14/20 tablet,extended release 24 hr (Toprol XL) hyoscyamine sulfate 0.125 mg tablet 0.125 mg PO BID-QID PRN #20 tab 09/01/20 ondansetron 4 mg disintegrating 4 mg PO TID-QID PRN #10 tab 09/01/20 tablet allopurinol 100 mg tablet 100 mg PO DAILY #90 tab 09/21/20 pantoprazole 40 mg tablet,delayed 40 mg PO DAILY #60 tab 02/24/21 release ondansetron 4 mg disintegrating See Rx Instructions .ROUTE 04/15/21 tablet .COMPLEX #20 tab atorvastatin 20 mg tablet See Rx Instructions .ROUTE 05/25/21 .COMPLEX #90 tab cefuroxime axetil 500 mg tablet 500 mg PO BID #20 tab 05/28/21 valacyclovir 1 gram tablet 1,000 mg PO BID PRN #30 tab 05/28/21 lisinopril 10 mg tablet See Rx Instructions .ROUTE 06/24/21 .COMPLEX #90 tab Allergies Allergy/AdvReac Type Severity Reaction Status Date / Time Penicillins [PENICILLINS] Allergy Mild RASH Verified 06/29/21 03:08 oseltamivir [From TAMIFLU] AdvReac Intermediate lesions Verified 06/29/21 03:08 on skin Review of Systems Review of Systems Narrative: Remainder of complete review of systems is otherwise unremarkable except for that included in the HPI. Patient History Medical History Acute right hip pain Amputation finger Anxiety (Unknown) Atrial fibrillation Cervical somatic dysfunction Chronic neck pain Chronic pain syndrome (Unknown) Chronic right shoulder pain Congenital deafness (Unknown) Cranial somatic dysfunction Depression (Unknown) Disability examination Hypertension (Unknown) Pain in finger of both hands Paroxysmal atrial fibrillation PTSD (post-traumatic stress disorder) (Unknown) Thoracic region somatic dysfunction Upper extremity somatic dysfunction Surgical History Hx of corrected cleft lip and palate (Unknown) Family History Mother No problems noted. Father Gout Heart disease Social History household members: significant other Smoking Status: Never smoker second hand exposure: No alcohol intake: never substance use type: does not use Smoking Status: Never smoker alcohol intake frequency: 0-2 drinks per day Substance Use Type: does not use Exam Narrative Exam Narrative: General: Healthy appearing, violent emesis. Able to give a complete and coherent history. Well-nourished well-developed HEENT: Moist mucous membranes, normal sclera with reactive pupils, diaphoretic with the work of vomiting Neck: No cervical adenopathy, supple Respiratory: Lungs are clear to auscultation, no wheezing no rales no rhonchi. Full and symmetrical air movement Cardiac: Regular rate and rhythm no murmurs no bruits Abdomen: Soft, nontender, good bowel tones, no flank pain Skin: Warm and dry, no rashes Neurologic: Grossly neurologically intact with no obvious asymmetries or abnormalities Extremities: No trauma, well perfused Psych: Cooperative, appropriate insight and affect Initial Vital Signs Initial Vital Signs: Vital Signs Pulse Oximetry 98 06/29/21 03:04 Course Orders Ordered: ED Orders 06/29/21 03:00 COVID19 -Nasal swab/Pre-Proc Stat 06/29/21 03:15 Complete Blood Count AUTO DIFF Stat Comprehensive Metabolic Panel Stat Lipase Stat Troponin I Stat 06/29/21 06:00 GI Panel (Film Array) Stat Discontinued Medications Diphenhydramine HCl (Diphenhydramine 50 Mg/Ml Vial) 25 mg IV NOW ONE Stop: 06/29/21 05:10 Last Admin: 06/29/21 05:14 Dose: 25 mg Documented by: DELFINA Haloperidol (Haloperidol 5 Mg/Ml Vial) 2 mg IV NOW ONE Stop: 06/29/21 05:10 Last Admin: 06/29/21 05:15 Dose: 2 mg Documented by: DELFINA Sodium Chloride (Normal Saline 0.9%) 1,000 mls @ 1,000 mls/hr IV BOLUS ONE Stop: 06/29/21 04:11 Last Infusion: 06/29/21 05:22 Dose: 0 mls/hr Documented by: Admin: 06/29/21 03:19 Dose: 1,000 mls/hr Documented by: HARI Metoclopramide HCl (Metoclopramide 10 Mg/2 Ml Inj) 10 mg IV NOW ONE Stop: 06/29/21 03:44 Last Admin: 06/29/21 03:47 Dose: 10 mg Documented by: DELFINA Metoclopramide HCl (Metoclopramide 10 Mg/2 Ml Inj) 10 mg IV NOW ONE Stop: 06/29/21 03:45 Last Admin: 06/29/21 03:47 Dose: Not Given Documented by: DELFINA Ondansetron HCl (Ondansetron 4 Mg/2 Ml Inj) 4 mg IV NOW ONE Stop: 06/29/21 03:12 Last Admin: 06/29/21 03:19 Dose: 4 mg Documented by: HARI Vital Signs Vital signs: Vital Signs - 8 hr 06/29/21 03:04 06/29/21 03:05 06/29/21 03:08 Temperature 97.1 F L Pulse Rate 91 H 77 Respiratory Rate 18 Blood Pressure 167/112 H 167/112 H Pulse Oximetry 98 95 95 06/29/21 03:30 06/29/21 06:03 06/29/21 06:04 Temperature Pulse Rate 71 54 L 62 Respiratory Rate Blood Pressure 158/101 H Pulse Oximetry 100 100 100 Medical Decision Making Lab Data Result diagrams: 06/29/21 03:15 06/29/21 03:15 Labs: Lab Results 06/29/21 06/29/21 06/29/21 Range/Units 03:00 03:15 03:15 WBC 12.5 H (4.5-11.0) X10^3/uL RBC 5.14 (4.0-5.2) X10^6/uL Hgb 15.4 (12.0-16.0) g/dL Hct 46.1 H (36-46) % MCV 89.6 (80-100) fL MCH 29.9 (26-34) PG MCHC 33.3 (30-36) % RDW 13.8 (11.6-14.8) % Plt Count 369 (150-400) X10^3/uL Neut % (Auto) 74.1 (50-75) % Lymph % (Auto) 22.1 L (25-40) % Appling % (Auto) 2.7 L (3-14) % Eos % (Auto) 0.5 L (2-4) % Baso % (Auto) 0.6 (0-2) % Neut # (Auto) 9200 H (0976-2439) /uL Lymph # (Auto) 2800 (0061-8881) /uL Appling # (Auto) 300 (0-900) /uL Eos # (Auto) 100 (0-450) /uL Baso # (Auto) 100 (0-100) /uL Sodium 145 (137-145) mmol/L Potassium 3.7 (3.4-5.1) mmol/L Chloride 103 (98-107) mmol/L Carbon Dioxide 24 (22-32) mmol/L BUN 19 H (7-17) mg/dL Creatinine 0.61 (0.52-1.04) mg/dL Estimated GFR > 60.0 (>60) mL/min BUN/Creatinine Ratio 31.1 H (6-22) Glucose 177 H (70-100) mg/dL Calcium 10.5 H (8.4-10.2) mg/dL Total Bilirubin 0.3 (0.2-1.3) mg/dL AST 31 (14-36) IU/L ALT 28 (<35) IU/L Alkaline Phosphatase 77 (38-126) U/L Troponin I (0.01-0.034) ng/mL Total Protein 9.4 H (6.3-8.2) g/dL Albumin 5.4 H (3.5-5.0) g/dL Globulin 4.0 (1.7-4.1) g/dL Albumin/Globulin Ratio 1.4 (1.0-2.8) Lipase 152 (23-300) U/L SARS-CoV-2 (PCR) Negative (Negative) 06/29/21 Range/Units 03:15 WBC (4.5-11.0) X10^3/uL RBC (4.0-5.2) X10^6/uL Hgb (12.0-16.0) g/dL Hct (36-46) % MCV (80-100) fL MCH (26-34) PG MCHC (30-36) % RDW (11.6-14.8) % Plt Count (150-400) X10^3/uL Neut % (Auto) (50-75) % Lymph % (Auto) (25-40) % Appling % (Auto) (3-14) % Eos % (Auto) (2-4) % Baso % (Auto) (0-2) % Neut # (Auto) (6623-2763) /uL Lymph # (Auto) (3534-1302) /uL Appling # (Auto) (0-900) /uL Eos # (Auto) (0-450) /uL Baso # (Auto) (0-100) /uL Sodium (137-145) mmol/L Potassium (3.4-5.1) mmol/L Chloride (98-107) mmol/L Carbon Dioxide (22-32) mmol/L BUN (7-17) mg/dL Creatinine (0.52-1.04) mg/dL Estimated GFR (>60) mL/min BUN/Creatinine Ratio (6-22) Glucose (70-100) mg/dL Calcium (8.4-10.2) mg/dL Total Bilirubin (0.2-1.3) mg/dL AST (14-36) IU/L ALT (<35) IU/L Alkaline Phosphatase (38-126) U/L Troponin I < 0.012 (0.01-0.034) ng/mL Total Protein (6.3-8.2) g/dL Albumin (3.5-5.0) g/dL Globulin (1.7-4.1) g/dL Albumin/Globulin Ratio (1.0-2.8) Lipase (23-300) U/L SARS-CoV-2 (PCR) (Negative) Discharge Plan Departure Prescriptions: No Action Acyclovir 5% ointment 1 applic topical 5XD PRN (Reason: Cold Sores) RF: 0 loratadine [Allergy Relief (loratadine)] 10 mg tablet 10 mg PO DAILY PRN (Reason: allergy symptoms) Qty: 30 RF: 5 cyclobenzaprine 5 mg tablet 5 mg PO BIDP PRN (Reason: muscle spasm) Qty: 30 RF: 2 ondansetron 4 mg tablet,disintegrating 4 mg PO DAILY PRN (Reason: nausea and vomiting) Qty: 10 RF: 3 metoprolol succinate [Toprol XL] 25 mg tablet extended release 24 hr 25 mg PO QDAY Qty: 30 RF: 12 allopurinol 100 mg tablet 100 mg PO DAILY Qty: 90 RF: 2 pantoprazole 40 mg tablet,delayed release (DR/EC) 40 mg PO DAILY Qty: 60 RF: 2 ondansetron 4 mg tablet,disintegrating See Rx Instructions .ROUTE .COMPLEX Qty: 20 RF: 0 atorvastatin 20 mg tablet See Rx Instructions .ROUTE .COMPLEX Qty: 90 RF: 0 cefuroxime axetil 500 mg tablet 500 mg PO BID Qty: 20 RF: 0 valacyclovir 1 gram tablet 1,000 mg PO BID PRN (Reason: recurrent herpetic lesions) Qty: 30 RF: 3 lisinopril 10 mg tablet See Rx Instructions .ROUTE .COMPLEX Qty: 90 RF: 0 promethazine 25 mg tablet 25 mg PO TID PRN (Reason: nausea and vomiting) Qty: 10 RF: 0 hyoscyamine sulfate 0.125 mg tablet 0.125 mg PO BID-QID PRN (Reason: dyspepsia) Qty: 20 RF: 0 ondansetron 4 mg tablet,disintegrating 4 mg PO TID-QID PRN (Reason: nausea and vomiting) Qty: 10 RF: 0 Referrals: Tushar Ruby DO [Primary Care Provider] -
[2021-06-29] MEDS: SODIUM CHLORIDE 0.9% 1,000 ML 1000 ML IV (03:19)
[2021-06-29] MEDS: ONDANSETRON 4 MG/2 ML INJ IV (03:19)
[2021-06-29 03:27] LABS: Add Manual Diff / Slide Review NO; Basophils Absolute Auto 100 /uL (0-100); Basophils Percent Auto 0.6 % (0-2); Eosinophils Absolute Auto 100 /uL (0-450); Eosinophils Percent Auto 0.5 % (2-4); Hematocrit 46.1 % (36-46); Hemoglobin 15.4 g/dL (12.0-16.0); Lymphocytes Absolute Auto 2800 /uL (1100-4500); Lymphocytes Percent Auto 22.1 % (25-40); Mean Corpuscular HGB Conc 33.3 % (30-36); Mean Corpuscular Hemoglobin 29.9 PG (26-34); Mean Corpuscular Volume 89.6 fL (80-100); Monocytes Absolute Auto 300 /uL (0-900); Monocytes Percent Auto 2.7 % (3-14); Neutrophils Absolute Auto 9200 /uL (1500-7000); Neutrophils Percent Auto 74.1 % (50-75); Platelet Count 369 X10^3/uL (150-400); Red Blood Cell Count 5.14 X10^6/uL (4.0-5.2); Red Cell Distribution Width 13.8 % (11.6-14.8); White Blood Cell Count 12.5 X10^3/uL (4.5-11.0)
[2021-06-29 03:32] LABS: COVID19 -Nasal RAPID Negative (Negative)
[2021-06-29 03:43] LABS: Alanine Aminotransferase 28 IU/L (<35); Albumin 5.4 g/dL (3.5-5.0); Albumin Globulin Ratio 1.4 (1.0-2.8); Alkaline Phosphatase 77 U/L (38-126); Aspartate Aminotransferase 31 IU/L (14-36); BUN Creatinine Ratio 31.1 (6-22); Bilirubin Total 0.3 mg/dL (0.2-1.3); Blood Urea Nitrogen 19 mg/dL (7-17); Calcium 10.5 mg/dL (8.4-10.2); Carbon Dioxide 24 mmol/L (22-32); Chloride 103 mmol/L (98-107); Estimated Glomerular Filt Rate > 60.0 mL/min (>60); Glucose 177 mg/dL (70-100); HEMOLYSIS < 15 (0-50); Lipase 152 U/L (23-300); Potassium 3.7 mmol/L (3.4-5.1); Sodium 145 mmol/L (137-145); Total Protein 9.4 g/dL (6.3-8.2)
[2021-06-29] MEDS: METOCLOPRAMIDE 10 MG/2 ML INJ IV (03:47)
[2021-06-29] MEDS: diphenhydrAMINE 50 MG/ML VIAL 25 MG IV (05:14)
[2021-06-29] MEDS: HALOPERIDOL 5 MG/ML VIAL 2 MG IV (05:15)
[2021-06-29 05:55] LABS: Troponin I < 0.012 ng/mL (0.01-0.034)
[2021-06-29 07:39] LABS: Adenovirus F 40/41 Not Detected (Not Detect); Astrovirus Not Detected (Not Detect); Campylobacter Not Detected (Not Detect); Clostridium difficile toxin AB Not Detected (Not Detect); Cryptosporidium Not Detected (Not Detect); Cyclospora cayetanensis Not Detected (Not Detect); Entamoeba histolytica Not Detected (Not Detect); Enteroaggregative E.coli Not Detected (Not Detect); Enteropathogenic E.coli Not Detected (Not Detect); Enterotoxigenic E.coli It/st Not Detected (Not Detect); Giardia lamblia Not Detected (Not Detect); Norovirus GI/GII Not Detected (Not Detect); Plesiomonsa shigelloides Not Detected (Not Detect); Rotavirus A Not Detected (Not Detect); Salmonella Not Detected (Not Detect); Sapovirus Not Detected (Not Detect); Shiga-like toxin-prod E.coli Not Detected (Not Detect); Shigella/Enteroinvasive E.coli Not Detected (Not Detect); Vibrio Not Detected (Not Detect); Vibrio cholerae Not Detected (Not Detect); Yersinia enterocolitica Not Detected (Not Detect)
[2021-06-29] MEDS: ONDANSETRON 4 MG ODT SL (08:46)
[2021-06-29] MEDS: PANTOPRAZOLE 40 MG VIAL IV (08:46)
== END 2021-06-29 09:32 | disposition home or self-care (01) ==
PROVIDERS: Emergency Medicine; Emergency Provider Emergency Medicine; PCP Family Medicine
DX: R19.7 Diarrhea, unspecified (principal); R11.2 Nausea with vomiting, unspecified; Z20.822 Contact with and (suspected) exposure to COVID-19
CPT/HCPCS: 80053; 83690; 84484; 85025; 87507; 87635; 96361; 96374; 96375; 99284; C9803; C9113; J1200; J1630; J2405; J2765

== ENCOUNTER → 2021-06-30 13:35 | Outpatient (CLI) | payer OTHER, MEDICAID, SELFPAY ==
[2020-03-08 13:47] VITALS: BMI 26.6
--- NOTE | 2021-06-30 | DI.MG.S_ITS ---
BILATERAL DIGITAL SCREENING MAMMOGRAM 3D/2D WITH CAD: 06/30/2021 CLINICAL: Routine screening. Comparison is made to exams dated: 11/20/2019 mammogram, 08/04/2018 mammogram - [facility], and 01/02/2015 mammogram - [facility]. There are scattered fibroglandular elements in both breasts. Current study was also evaluated with a Computer Aided Detection (CAD) system. No significant masses, calcifications, or other findings are seen in either breast. There has been no significant interval change. IMPRESSION: NEGATIVE There is no mammographic evidence of malignancy. A 1 year screening mammogram is recommended. This exam was interpreted at Station ID: [id number]. NOTE: For mammograms, a report in lay terms will be sent to the patient. Approximately 15% of breast malignancies will not be visualized mammographically. In the management of a palpable breast mass, a negative mammogram must not discourage biopsy of a clinically suspicious lesion. Electronically Signed By: Milind Stewart acr/penrad:06/30/2021 18:28:28 letter sent: Normal Exam ACR BI-RADS Category 1: Negative [id number]
== END ==
PROVIDERS: PCP Family Medicine; Referring Provider Family Medicine; Visit Provider Family Medicine
DX: Z12.31 Encounter for screening mammogram for malignant neoplasm of breast (principal)
CPT/HCPCS: 77063; 77067

== ENCOUNTER 2021-12-15 07:00 | Emergency (ER) | payer OTHER, MEDICAID, SELFPAY ==
[2020-03-08 13:47] VITALS: BMI 26.6
[2021-12-15 07:16] VITALS: BP 172/96; PULSE 76; RESP 18; TEMP 36.6; O2SAT 98
[2021-12-15 07:37] LABS: Add Manual Diff / Slide Review NO; Basophils Absolute Auto 100 /uL (0-100); Basophils Percent Auto 0.9 % (0-2); Eosinophils Absolute Auto 0 /uL (0-450); Eosinophils Percent Auto 0.1 % (2-4); Hematocrit 40.5 % (36-46); Hemoglobin 13.8 g/dL (12.0-16.0); Lymphocytes Absolute Auto 1900 /uL (1100-4500); Lymphocytes Percent Auto 19.1 % (25-40); Mean Corpuscular HGB Conc 34.2 % (30-36); Mean Corpuscular Hemoglobin 30.4 PG (26-34); Mean Corpuscular Volume 88.9 fL (80-100); Monocytes Absolute Auto 300 /uL (0-900); Monocytes Percent Auto 3.4 % (3-14); Neutrophils Absolute Auto 7600 /uL (1500-7000); Neutrophils Percent Auto 76.5 % (50-75); Platelet Count 349 X10^3/uL (150-400); Red Blood Cell Count 4.55 X10^6/uL (4.0-5.2); Red Cell Distribution Width 13.6 % (11.6-14.8); White Blood Cell Count 9.9 X10^3/uL (4.5-11.0)
[2021-12-15] MEDS: ONDANSETRON 4 MG/2 ML INJ IV (07:46)
[2021-12-15] MEDS: PANTOPRAZOLE 40 MG VIAL IV (07:46)
[2021-12-15 07:47] LABS: PTT Partial Thromboplastin Tim 27 SECONDS (26.4-36.2)
[2021-12-15 07:49] LABS: Alanine Aminotransferase 21 IU/L (<35); Albumin 5.2 g/dL (3.5-5.0); Albumin Globulin Ratio 1.6 (1.0-2.8); Alkaline Phosphatase 63 U/L (38-126); Aspartate Aminotransferase 27 IU/L (14-36); Bilirubin Total 0.3 mg/dL (0.2-1.3); Blood Urea Nitrogen 14 mg/dL (7-17); Calcium 9.6 mg/dL (8.4-10.2); Carbon Dioxide 23 mmol/L (22-32); Chloride 109 mmol/L (98-107); Estimated Glomerular Filt Rate > 60.0 mL/min (>60); Globulin 3.3 g/dL (1.7-4.1); Glucose 166 mg/dL (70-100); HEMOLYSIS 27 (0-50); Lipase 126 U/L (23-300); Potassium 3.9 mmol/L (3.4-5.1); Sodium 142 mmol/L (137-145); Total Protein 8.5 g/dL (6.3-8.2)
--- NOTE | 2021-12-15 07:58 | ED.NAVMDI ---
HPI - Nausea/Vomiting/Diarrhea General Chief complaint: Nausea/Vomiting/Diarrhea Stated complaint: vomiting Time Seen by Provider: 12/15/21 07:23 Source: patient Mode of arrival: Ambulatory History of Present Illness HPI Narrative: Patient is a 56-year-old female who history of PTSD anxiety hyperlipidemia hypertension presenting today with abdominal pain and vomiting. She says it started around 3:00 a.m..(5hours of vomiting) She has all over abdominal pain. She has been unable to keep anything down. Upon nursing staff did note that she is putting some fingers down her throat as well. She denies any marijuana use. She says she was feeling well yesterday. She does have some bright red blood per rectum which she says is not abnormal for her she has a known hemorrhoid. She actually had any today. She is not having any hematemesis. Was on ulcer medication however she was taken off of it because senior living it can cause Alzheimer's. Related Data Home Medications Medication Instructions Recorded Confirmed Acyclovir 5% 1 applic TOPICAL 5XD PRN 06/05/18 03/12/21 Previous Rx's Medication Instructions Recorded loratadine 10 mg tablet (Allergy 10 mg PO DAILY PRN #30 tab 02/20/18 Relief (loratadine)) cyclobenzaprine 5 mg tablet 5 mg PO BIDP PRN #30 tab 01/31/19 ondansetron 4 mg disintegrating 4 mg PO DAILY PRN #10 tab 06/24/19 tablet promethazine 25 mg tablet 25 mg PO TID PRN #10 tab 03/09/20 hyoscyamine sulfate 0.125 mg tablet 0.125 mg PO BID-QID PRN #20 tab 09/01/20 ondansetron 4 mg disintegrating 4 mg PO TID-QID PRN #10 tab 09/01/20 tablet pantoprazole 40 mg tablet,delayed 40 mg PO DAILY #60 tab 02/24/21 release ondansetron 4 mg disintegrating See Rx Instructions .ROUTE 04/15/21 tablet .COMPLEX #20 tab cefuroxime axetil 500 mg tablet 500 mg PO BID #20 tab 05/28/21 valacyclovir 1 gram tablet 1,000 mg PO BID PRN #30 tab 05/28/21 lisinopril 10 mg tablet See Rx Instructions .ROUTE 10/07/21 .COMPLEX #90 tab metoprolol succinate 25 mg See Rx Instructions .ROUTE 10/12/21 tablet,extended release 24 hr .COMPLEX #30 tab allopurinol 100 mg tablet See Rx Instructions .ROUTE 12/03/21 .COMPLEX #90 tab atorvastatin 20 mg tablet See Rx Instructions .ROUTE 12/14/21 .COMPLEX #90 tab ondansetron 4 mg disintegrating 4 mg PO Q8H PRN #10 tab 12/15/21 tablet Allergies Allergy/AdvReac Type Severity Reaction Status Date / Time Penicillins [PENICILLINS] Allergy Mild RASH Verified 06/29/21 03:08 oseltamivir [From TAMIFLU] AdvReac Intermediate lesions Verified 06/29/21 03:08 on skin Review of Systems Review of Systems Narrative: GENERAL: Denies chills, fatigue, malaise, fever, sweats, travel HEENT: Denies sinus pain, ear pain, sore throat, difficulty swallowing, neck pain RESPIRATORY: Denies dyspnea, cough, wheezing, hemoptysis, sputum. CARDIOVASCULAR: Denies chest pain, palpitations, orthopnea, edema GASTROINTESTINAL: See HPI : Denies dysuria, frequency, incontinence, hematuria, urinary retention, flank pain. MUSCULOSKELETAL: Denies weakness, joint pain, or bony pain SKIN: No rash, no erythema, no pruritus NEUROLOGIC: Denies weakness, dizziness, headache, numbness, change in speech, confusion PSYCHIATRIC: No concerning psychosocial issues. 12 point review of systems is negative except for those stated above and HPI Patient History Medical History Acute right hip pain Amputation finger Anxiety (Unknown) Atrial fibrillation Cervical somatic dysfunction Chronic neck pain Chronic pain syndrome (Unknown) Chronic right shoulder pain Congenital deafness (Unknown) Cranial somatic dysfunction Depression (Unknown) Disability examination Hypertension (Unknown) Pain in finger of both hands Paroxysmal atrial fibrillation PTSD (post-traumatic stress disorder) (Unknown) Thoracic region somatic dysfunction Upper extremity somatic dysfunction Surgical History Hx of corrected cleft lip and palate (Unknown) Family History Mother No problems noted. Father Gout Heart disease Social History household members: significant other Smoking Status: Never smoker second hand exposure: No alcohol intake: never substance use type: does not use Smoking Status: Never smoker alcohol intake frequency: 0-2 drinks per day Substance Use Type: does not use Exam Initial Vital Signs Initial Vital Signs: Vital Signs Temperature 98 F 12/15/21 07:16 Pulse Rate 76 12/15/21 07:16 Respiratory Rate 18 12/15/21 07:16 Blood Pressure 172/96 H 12/15/21 07:16 Pulse Oximetry 98 12/15/21 07:16 GENERAL: 56-year-old female curled up on bed, appears uncomfortable moaning in no acute distress. HEENT: Head atraumatic,EOMI, pupils reactive, face symmetric, moist mucous membranes CARDIOVASCULAR: Regular rate and rhythm without murmurs, rubs or gallops. RESPIRATORY: Breath sounds equal bilaterally, no wheezes rales or rhonchi. ABDOMEN: Soft, diffusely tender no distension more pain and epigastric your : No CVA tenderness EXTREMITIES: Normal range of motion, no clubbing or edema. Neurovascularly intact NEUROLOGICAL: Alert and oriented x4.Normal gait and speech, ambulated to the restroom without any difficulty SKIN: Warm, dry, no laceration, no petechiae, no rashes or lesions. Course Orders Ordered: ED Orders 12/15/21 07:30 Complete Blood Count AUTO DIFF Stat Comprehensive Metabolic Panel Stat Lipase Stat Partial Thromboplastin Time Stat Prothrombin Time INR Stat 12/15/21 08:03 CT abdomen pelvis w con Stat Discontinued Medications Sodium Chloride (Normal Saline 0.9%) 1,000 mls @ 1,000 mls/hr IV BOLUS ONE Stop: 12/15/21 10:18 Last Infusion: 12/15/21 10:37 Dose: 0 mls/hr Documented by: JOHN PAUL Admin: 12/15/21 09:22 Dose: 1,000 mls/hr Documented by: HARI Metoclopramide HCl (Metoclopramide 10 Mg/2 Ml Inj) 10 mg IV NOW ONE Stop: 12/15/21 09:10 Last Admin: 12/15/21 09:26 Dose: 10 mg Documented by: HARI Ondansetron HCl (Ondansetron 4 Mg/2 Ml Inj) 4 mg IV NOW ONE Stop: 12/15/21 07:24 Last Admin: 12/15/21 07:46 Dose: 4 mg Documented by: HARI Pantoprazole Sodium (Pantoprazole 40 Mg Vial) 40 mg IV NOW ONE Stop: 12/15/21 07:24 Last Admin: 12/15/21 07:46 Dose: 40 mg Documented by: HARI Vital Signs Vital signs: Vital Signs - 8 hr 12/15/21 07:16 12/15/21 09:26 12/15/21 09:30 Temperature 98 F Pulse Rate 76 65 65 Respiratory Rate 18 Blood Pressure 172/96 H 169/96 H 181/101 H Pulse Oximetry 98 100 100 12/15/21 10:00 12/15/21 10:30 12/15/21 10:32 Temperature Pulse Rate 55 L 59 L 57 L Respiratory Rate 12 17 15 Blood Pressure 157/87 H 162/82 H Pulse Oximetry 99 100 100 MDM - Nausea/Vomiting/Diarrhea Lab Data Result diagrams: 12/15/21 07:30 12/15/21 07:30 Labs: Lab Results 12/15/21 12/15/21 12/15/21 Range/Units 07:30 07:30 07:30 WBC 9.9 (4.5-11.0) X10^3/uL RBC 4.55 (4.0-5.2) X10^6/uL Hgb 13.8 (12.0-16.0) g/dL Hct 40.5 (36-46) % MCV 88.9 (80-100) fL MCH 30.4 (26-34) PG MCHC 34.2 (30-36) % RDW 13.6 (11.6-14.8) % Plt Count 349 (150-400) X10^3/uL Neut % (Auto) 76.5 H (50-75) % Lymph % (Auto) 19.1 L (25-40) % [place] % (Auto) 3.4 (3-14) % Eos % (Auto) 0.1 L (2-4) % Baso % (Auto) 0.9 (0-2) % Neut # (Auto) 7600 H (2463-0562) /uL Lymph # (Auto) 1900 (1497-5196) /uL [place] # (Auto) 300 (0-900) /uL Eos # (Auto) 0 (0-450) /uL Baso # (Auto) 100 (0-100) /uL PT 11.0 (10.1-12.7) SECONDS INR 1.0 (0.9-1.3) APTT 27 D (26.4-36.2) SECONDS Sodium 142 (137-145) mmol/L Potassium 3.9 (3.4-5.1) mmol/L Chloride 109 H (98-107) mmol/L Carbon Dioxide 23 (22-32) mmol/L BUN 14 (7-17) mg/dL Creatinine 0.61 (0.52-1.04) mg/dL Estimated GFR > 60.0 (>60) mL/min BUN/Creatinine Ratio 23.0 H (6-22) Glucose 166 H (70-100) mg/dL Calcium 9.6 (8.4-10.2) mg/dL Total Bilirubin 0.3 (0.2-1.3) mg/dL AST 27 (14-36) IU/L ALT 21 (<35) IU/L Alkaline Phosphatase 63 (38-126) U/L Total Protein 8.5 H (6.3-8.2) g/dL Albumin 5.2 H (3.5-5.0) g/dL Globulin 3.3 (1.7-4.1) g/dL Albumin/Globulin Ratio 1.6 (1.0-2.8) Lipase 126 (23-300) U/L Imaging Data CT scan - abdomen/pelvis: Radiologist's Impression: PROCEDURE:? CT ABDOMEN PELVIS W CON ? INDICATIONS:? pain and vomiting ? TECHNIQUE:? After the administration of oral and IV contrast, axial sections were acquired from the lung bases to the pubic symphysis.? Coronal and sagittal reformats were performed.? For radiation dose reduction, the following was used:? automated exposure control, adjustment of mA and/or kV according to patient size. ? COMPARISON:? [facility], CT, CT ABDOMEN PELVIS W CON, 09/01/2020, 22:42. ? FINDINGS:? Image quality:? Excellent.? ? Lung bases:? Unremarkable.? ? Heart:? Heart is normal in size. ? ? ABDOMEN: Liver:? A small hypodense focus measuring up to 0.6 cm is redemonstrated in the right hepatic lobe likely representing a cyst. Gallbladder:? Within normal limits without calcified gallstones.? ? Biliary ducts:? No biliary ductal dilatation.? ? Pancreas:? Unremarkable.? ? Spleen:? Normal in size.? ? Adrenal Glands:? No adrenal nodules.? ? Kidneys and Ureters:? No hydronephrosis.? ? ? Stomach and Bowel:? Stomach and small bowel loops are normal in caliber and wall thickness.? No evidence of appendicitis.? There is diffuse mild wall thickening and mucosal enhancement throughout the colon with mild pericolonic fat stranding.? Colonic diverticulosis is present without acute diverticulitis.? Peritoneum:? No abnormal intraperitoneal fluid.? No free air.? ? Ventral Wall: ? No hernia.? Abdominal Nodes:? No retroperitoneal or mesenteric adenopathy by size criteria.? Vessels:? Aorta and inferior vena cava are normal in size.? ? PELVIS: Pelvic Organs:? Unremarkable.? ? Bladder:? Unremarkable.? ? Pelvic Nodes: No enlarged lymph nodes.? Miscellaneous: No inguinal hernias are seen. ? ? ? Bones:? Visualized osseous structures demonstrate no suspicious focal lesions. ? ? IMPRESSION:? ? 1. Diffuse mild colonic wall thickening, mucosal enhancement, and pericolonic fat stranding consistent with an infectious or inflammatory meza-colitis. ? 2. Colonic diverticulosis without acute diverticulitis. ? ? Dictated by: Bertram Argueta M.D. on 12/15/2021 at 8:57 ? ? MDM Narrative Medical decision making narrative: Patient having some vomiting which is finally controlled with Reglan. CT does show some inflammatory colitis. She has no fever or leukocytosis at this time no need for antibiotics. She was unable to give us a urine sample but did have multiple nonbloody bowel movements in the emergency department. She does report occasional bright red blood per rectum within known hemorrhoid hemoglobin hematocrit is stable. She reports to nursing staff that she ate a cake baked from her neighbor and every time she eats it she gets very sick. Overall now keeping ice chips down feeling better and feels ready able to go home. Discharge Plan Departure Patient Disposition: Home Clinical Impression: Vomiting, Gastroenteritis Instructions: DI for Vomiting -- Adult Activity Restrictions/Additional Instructions: *You have been diagnosed with vomiting *What to do: Unclear what the cause of her vomiting is today. Fortunately your blood work was reassuring. Your CT scan did show some inflammation in her colon this not need antibiotics at this time. If pain continues to get worse or you develop fever you may require antibiotic *Continue to take medications as directed Zofran 4 mg every 8 hours if needed for nausea or vomiting--> S[facility] TO [facility] *Follow up with your primary care provider in 2-3 days or call [phone] *Return to ER if you should have increasing abdominal pain, fever, persistent vomiting or any new, worsening or concerning symptoms Prescriptions: New ondansetron 4 mg tablet,disintegrating 4 mg PO Q8H PRN (Reason: nausea and vomiting) Qty: 10 0RF No Action Acyclovir 5% ointment 1 applic topical 5XD PRN (Reason: Cold Sores) 0RF Label Comments: 1 Application topically 5 times a day PRN loratadine [Allergy Relief (loratadine)] 10 mg tablet 10 mg PO DAILY PRN (Reason: allergy symptoms) Qty: 30 5RF cyclobenzaprine 5 mg tablet 5 mg PO BIDP PRN (Reason: muscle spasm) Qty: 30 2RF ondansetron 4 mg tablet,disintegrating 4 mg PO DAILY PRN (Reason: nausea and vomiting) Qty: 10 3RF pantoprazole 40 mg tablet,delayed release (DR/EC) 40 mg PO DAILY Qty: 60 2RF ondansetron 4 mg tablet,disintegrating See Rx Instructions .ROUTE .COMPLEX Qty: 20 0RF Dose Instruction: dissolve 1 tablet ON TONGUE every 6 hours if needed for nausea OR vomiting Rx Instructions: dissolve 1 tablet ON TONGUE every 6 hours if needed for nausea OR vomiting cefuroxime axetil 500 mg tablet 500 mg PO BID Qty: 20 0RF valacyclovir 1 gram tablet 1,000 mg PO BID PRN (Reason: recurrent herpetic lesions) Qty: 30 3RF lisinopril 10 mg tablet See Rx Instructions .ROUTE .COMPLEX Qty: 90 0RF Dose Instruction: take 1 tablet by mouth once daily WITH METOPROLOL Rx Instructions: take 1 tablet by mouth once daily WITH METOPROLOL metoprolol succinate 25 mg tablet extended release 24 hr See Rx Instructions .ROUTE .COMPLEX Qty: 30 2RF Dose Instruction: take 1 tablet by mouth once daily Rx Instructions: take 1 tablet by mouth once daily allopurinol 100 mg tablet See Rx Instructions .ROUTE .COMPLEX Qty: 90 0RF Dose Instruction: take 1 tablet by mouth once daily Rx Instructions: take 1 tablet by mouth once daily atorvastatin 20 mg tablet See Rx Instructions .ROUTE .COMPLEX Qty: 90 0RF Dose Instruction: take 1 tablet by mouth at bedtime Rx Instructions: take 1 tablet by mouth at bedtime promethazine 25 mg tablet 25 mg PO TID PRN (Reason: nausea and vomiting) Qty: 10 0RF hyoscyamine sulfate 0.125 mg tablet 0.125 mg PO BID-QID PRN (Reason: dyspepsia) Qty: 20 0RF ondansetron 4 mg tablet,disintegrating 4 mg PO TID-QID PRN (Reason: nausea and vomiting) Qty: 10 0RF Referrals: Tushar Ruby DO [Primary Care Provider] -
--- NOTE | 2021-12-15 08:03 | DI.CT.S_ITS ---
PROCEDURE: CT ABDOMEN PELVIS W CON INDICATIONS: pain and vomiting TECHNIQUE: After the administration of oral and IV contrast, axial sections were acquired from the lung bases to the pubic symphysis. Coronal and sagittal reformats were performed. For radiation dose reduction, the following was used: automated exposure control, adjustment of mA and/or kV according to patient size. COMPARISON: [facility], CT, CT ABDOMEN PELVIS W CON, 09/01/2020, 22:42. FINDINGS: Image quality: Excellent. Lung bases: Unremarkable. Heart: Heart is normal in size. ABDOMEN: Liver: A small hypodense focus measuring up to 0.6 cm is redemonstrated in the right hepatic lobe likely representing a cyst. Gallbladder: Within normal limits without calcified gallstones. Biliary ducts: No biliary ductal dilatation. Pancreas: Unremarkable. Spleen: Normal in size. Adrenal Glands: No adrenal nodules. Kidneys and Ureters: No hydronephrosis. Stomach and Bowel: Stomach and small bowel loops are normal in caliber and wall thickness. No evidence of appendicitis. There is diffuse mild wall thickening and mucosal enhancement throughout the colon with mild pericolonic fat stranding. Colonic diverticulosis is present without acute diverticulitis. Peritoneum: No abnormal intraperitoneal fluid. No free air. Ventral Wall: No hernia. Abdominal Nodes: No retroperitoneal or mesenteric adenopathy by size criteria. Vessels: Aorta and inferior vena cava are normal in size. PELVIS: Pelvic Organs: Unremarkable. Bladder: Unremarkable. Pelvic Nodes: No enlarged lymph nodes. Miscellaneous: No inguinal hernias are seen. Bones: Visualized osseous structures demonstrate no suspicious focal lesions. IMPRESSION: 1. Diffuse mild colonic wall thickening, mucosal enhancement, and pericolonic fat stranding consistent with an infectious or inflammatory meza-colitis. 2. Colonic diverticulosis without acute diverticulitis. Dictated by: Bertram Argueta M.D. on 12/15/2021 at 8:57 Approved by: Bertram Argueta M.D. on 12/15/2021 at 9:05
[2021-12-15] MEDS: SODIUM CHLORIDE 0.9% 1,000 ML 1000 ML IV (09:22)
[2021-12-15 09:26] VITALS: BP 169/96; PULSE 65; O2SAT 100
[2021-12-15] MEDS: METOCLOPRAMIDE 10 MG/2 ML INJ IV (09:26)
[2021-12-15 09:30] VITALS: BP 181/101; PULSE 65; O2SAT 100
--- NOTE | 2021-12-15 09:43 | PC.NURSE ---
Addendum entered by Janett Palm R.N. 12/15/21 10:28: still no urine sample from pt. she is up to bathroom and grabbing blankets from warmer. instructed to use call light if she needs help Original Note: pt is up to the bathroom Q30min. states it is diarrhea only, she is unable to void. pt has nonskid socks on.
[2021-12-15 10:00] VITALS: BP 157/87; PULSE 55; RESP 12; O2SAT 99
[2021-12-15 10:30] VITALS: PULSE 59; RESP 17; O2SAT 100
[2021-12-15 10:32] VITALS: BP 162/82; PULSE 57; RESP 15; O2SAT 100
== END 2021-12-15 10:47 | disposition home or self-care (01) ==
PROVIDERS: Emergency Provider Emergency Medicine; PCP Family Medicine
DX: K52.9 Noninfective gastroenteritis and colitis, unspecified (principal)
CPT/HCPCS: 36415; 74177; 80053; 83690; 85025; 85610; 85730; 96361; 96374; 96375; 99284; C9113; J2405; J2765

== ENCOUNTER 2022-04-08 05:30 | Emergency (ER) | payer OTHER, MEDICAID, SELFPAY ==
[2020-03-08 13:47] VITALS: BMI 26.6
[2022-04-08 05:34] VITALS: BP 147/101; PULSE 79; RESP 22; TEMP 36.3; O2SAT 99; BMI 27.4
[2022-04-08 06:18] LABS: COVID19 -Nasal RAPID Negative (Negative)
[2022-04-08 06:46] LABS: Add Manual Diff / Slide Review NO; Basophils Absolute Auto 100 /uL (0-100); Basophils Percent Auto 0.7 % (0-2); Eosinophils Absolute Auto 0 /uL (0-450); Eosinophils Percent Auto 0.2 % (2-4); Hematocrit 43.2 % (36-46); Hemoglobin 14.6 g/dL (12.0-16.0); Lymphocytes Absolute Auto 2600 /uL (1100-4500); Lymphocytes Percent Auto 19.4 % (25-40); Mean Corpuscular HGB Conc 33.7 % (30-36); Monocytes Absolute Auto 300 /uL (0-900); Monocytes Percent Auto 2.5 % (3-14); Neutrophils Absolute Auto 10200 /uL (1500-7000); Neutrophils Percent Auto 77.2 % (50-75); Platelet Count 384 X10^3/uL (150-400); Red Blood Cell Count 4.85 X10^6/uL (4.0-5.2); Red Cell Distribution Width 13.6 % (11.6-14.8); White Blood Cell Count 13.2 X10^3/uL (4.5-11.0)
[2022-04-08 07:02] LABS: Alanine Aminotransferase 26 IU/L (<35); Albumin 5.4 g/dL (3.5-5.0); Albumin Globulin Ratio 1.5 (1.0-2.8); Alkaline Phosphatase 72 U/L (38-126); Aspartate Aminotransferase 33 IU/L (14-36); Bilirubin Total 0.4 mg/dL (0.2-1.3); Blood Urea Nitrogen 20 mg/dL (7-17); Calcium 9.5 mg/dL (8.4-10.2); Carbon Dioxide 22 mmol/L (22-32); Chloride 107 mmol/L (98-107); Estimated Glomerular Filt Rate > 60 mL/min (>60); Globulin 3.5 g/dL (1.7-4.1); Glucose 164 mg/dL (70-100); HEMOLYSIS 24 (0-50); Lipase 139 U/L (23-300); Potassium 4.1 mmol/L (3.4-5.1); Sodium 142 mmol/L (137-145); Total Protein 8.9 g/dL (6.3-8.2)
--- NOTE | 2022-04-08 07:16 | ED.NAVMDI ---
HPI - Nausea/Vomiting/Diarrhea General Chief complaint: Nausea/Vomiting/Diarrhea Stated complaint: n/v Time Seen by Provider: 04/08/22 06:50 Source: patient Mode of arrival: Ambulatory Limitations: no limitations History of Present Illness HPI Narrative: Patient is a 56-year-old female who is here for evaluation of nausea and vomiting. She states she woke up at approximately 0100 hours in the morning with nausea and has vomited multiple times since then. She also states she has had ?a little bit ?of diarrhea. No recent travel. No recent antibiotic use. She has had issues with nausea and vomiting in the past and has needed to visit the emergency department. I have evaluated her in the past for this. She does not have a specific diagnosis for the cause. There was some question about prior history of colitis. She is having some right upper quadrant pain but this has been going on for years and not worse now. The pain does not change when she vomits. Has not tried anything for the symptoms prior to arrival. Related Data Home Medications Medication Instructions Recorded Confirmed Acyclovir 5% 1 applic topical 5XD PRN Cold Sores 06/05/18 12/28/21 Previous Rx's Medication Instructions Recorded loratadine 10 mg tablet (Allergy 10 mg PO DAILY PRN allergy 02/20/18 Relief (loratadine)) symptoms #30 tabs cyclobenzaprine 5 mg tablet 5 mg PO BIDP PRN muscle spasm #30 01/31/19 tabs ondansetron 4 mg disintegrating 4 mg PO DAILY PRN nausea and 06/24/19 tablet vomiting #10 tabs promethazine 25 mg tablet 25 mg PO TID PRN nausea and 03/09/20 vomiting #10 tabs hyoscyamine sulfate 0.125 mg tablet 0.125 mg PO BID-QID PRN dyspepsia 09/01/20 #20 tabs ondansetron 4 mg disintegrating 4 mg PO TID-QID PRN nausea and 09/01/20 tablet vomiting #10 tabs ondansetron 4 mg disintegrating See Rx Instructions .Route 04/15/21 tablet .COMPLEX #20 tabs cefuroxime axetil 500 mg tablet 500 mg PO BID #20 tabs 05/28/21 valacyclovir 1 gram tablet 1,000 mg PO BID PRN recurrent 05/28/21 herpetic lesions #30 tabs ondansetron 4 mg disintegrating 4 mg PO Q8H PRN nausea and 12/15/21 tablet vomiting #10 tabs lisinopril 10 mg tablet See Rx Instructions .Route 12/21/21 .COMPLEX #90 tabs pantoprazole 40 mg tablet,delayed 40 mg PO DAILY #30 tabs 12/28/21 release allopurinol 100 mg tablet See Rx Instructions .Route 01/07/22 .COMPLEX #90 tabs metoprolol succinate 25 mg See Rx Instructions .Route 01/26/22 tablet,extended release 24 hr .COMPLEX #30 tabs atorvastatin 20 mg tablet 20 mg PO BEDTIME #60 tabs 03/23/22 ondansetron 4 mg disintegrating 4 mg PO Q6H PRN nausea and 04/08/22 tablet vomiting #14 tabs Allergies Allergy/AdvReac Type Severity Reaction Status Date / Time Penicillins [PENICILLINS] Allergy Mild RASH Verified 12/28/21 10:52 oseltamivir [From TAMIFLU] AdvReac Intermediate lesions Verified 12/28/21 10:52 on skin Review of Systems Constitutional Constitutional: Reports system reviewed and no additional complaints, except as documented Cardiovascular Cardiovascular: Reports system reviewed and no additional complaints, except as documented Respiratory Respiratory: Reports system reviewed and no additional complaints, except as documented Gastrointestinal Gastrointestinal: Reports abdominal pain, Denies diarrhea, Reports nausea and Reports vomiting Genitourinary Genitourinary: Reports system reviewed and no additional complaints, except as documented Musculoskeletal Musculoskeletal: Reports system reviewed and no additional complaints, except as documented Hematologic/Lymphatic On Anticoagulants: No Patient History Medical History Acute right hip pain Amputation finger Anxiety (Unknown) Atrial fibrillation Cervical somatic dysfunction Chronic neck pain Chronic pain syndrome (Unknown) Chronic right shoulder pain Congenital deafness (Unknown) Cranial somatic dysfunction Depression (Unknown) Disability examination Hypertension (Unknown) Pain in finger of both hands Paroxysmal atrial fibrillation PTSD (post-traumatic stress disorder) (Unknown) Thoracic region somatic dysfunction Upper extremity somatic dysfunction Surgical History Hx of corrected cleft lip and palate (Unknown) Family History Mother No problems noted. Father Gout Heart disease Social History household members: significant other Smoking Status: Never smoker second hand exposure: No alcohol intake: never substance use type: does not use Smoking Status: Never smoker alcohol intake frequency: 0-2 drinks per day Substance Use Type: does not use Exam Initial Vital Signs Initial Vital Signs: Vital Signs Temperature 97.3 F L 04/08/22 05:34 Pulse Rate 79 04/08/22 05:34 Respiratory Rate 22 04/08/22 05:34 Blood Pressure 147/101 H 04/08/22 05:34 Pulse Oximetry 99 04/08/22 05:34 Oxygen Delivery Method 04/08/22 05:34 HENMT Head: normal to inspection and normocephalic Resp Effort & Inspection: normal respiratory effort Auscultation: clear to auscultation bilaterally Cardio Rate: regular rate GI Inspection: normal to inspection Palpation: soft, No guarding and tender (Right upper quadrant without rebound) Back/Spine/Pelvis Back: No CVA tenderness Skin General: no rashes or lesions noted Neuro General: patient alert, patient awake and moves all extremities Extrem General: normal to inspection and capillary refill normal Psych Appearance: grossly normal and well kempt Course Orders Ordered: ED Orders 04/08/22 05:41 COVID19 -Nasal RAPID/Pre-Proc Stat 04/08/22 06:35 Complete Blood Count AUTO DIFF Stat Comprehensive Metabolic Panel Stat Lipase Stat Discontinued Medications Sodium Chloride (Normal Saline 0.9%) 1,000 mls @ 1,000 mls/hr IV BOLUS ONE Stop: 04/08/22 07:31 Last Infusion: 04/08/22 09:19 Dose: 0 mls/hr Documented By: Admin: 04/08/22 07:22 Dose: 1,000 mls/hr Documented By: ANTON Ondansetron HCl (Ondansetron 4 Mg/2 Ml Inj) 4 mg IV NOW ONE Stop: 04/08/22 07:15 Last Admin: 04/08/22 07:22 Dose: 4 mg Documented By: ANTON Ondansetron HCl (Ondansetron 4 Mg/2 Ml Inj) 4 mg IV NOW ONE Stop: 04/08/22 08:02 Last Admin: 04/08/22 08:06 Dose: 4 mg Documented By: HOWARD Pantoprazole Sodium (Pantoprazole 40 Mg Vial) 40 mg IV NOW ONE Stop: 04/08/22 07:15 Last Admin: 04/08/22 07:22 Dose: 40 mg Documented By: ANTON Vital Signs Vital signs: Vital Signs - 8 hr 04/08/22 05:34 04/08/22 07:28 04/08/22 09:01 Temperature 97.3 F L Pulse Rate 79 70 85 Respiratory Rate 22 18 18 Blood Pressure 147/101 H Pulse Oximetry 99 99 97 Oxygen Delivery Method Room Air 04/08/22 07:30 Temperature Pulse Rate 78 Respiratory Rate 18 Blood Pressure Pulse Oximetry 97 Oxygen Delivery Method MDM - Nausea/Vomiting/Diarrhea Medical Records Attestation: I reviewed the patient's medical records. Lab Data Attestation: I reviewed the patient's lab results. Result diagrams: 04/08/22 06:35 04/08/22 06:35 Labs: Lab Results 04/08/22 04/08/22 04/08/22 Range/Units 05:41 06:35 06:35 WBC 13.2 H (4.5-11.0) X10^3/uL RBC 4.85 (4.0-5.2) X10^6/uL Hgb 14.6 (12.0-16.0) g/dL Hct 43.2 (36-46) % MCV 89.0 (80-100) fL MCH 30.0 (26-34) PG MCHC 33.7 (30-36) % RDW 13.6 (11.6-14.8) % Plt Count 384 (150-400) X10^3/uL Neut % (Auto) 77.2 H (50-75) % Lymph % (Auto) 19.4 L (25-40) % [place] % (Auto) 2.5 L (3-14) % Eos % (Auto) 0.2 L (2-4) % Baso % (Auto) 0.7 (0-2) % Neut # (Auto) 68785 H (0034-6274) /uL Lymph # (Auto) 2600 (3042-6042) /uL [place] # (Auto) 300 (0-900) /uL Eos # (Auto) 0 (0-450) /uL Baso # (Auto) 100 (0-100) /uL Sodium 142 (137-145) mmol/L Potassium 4.1 (3.4-5.1) mmol/L Chloride 107 (98-107) mmol/L Carbon Dioxide 22 (22-32) mmol/L BUN 20 H (7-17) mg/dL Creatinine 0.69 (0.52-1.04) mg/dL Estimated GFR > 60 (>60) mL/min BUN/Creatinine Ratio 29.0 H (6-22) Glucose 164 H (70-100) mg/dL Calcium 9.5 (8.4-10.2) mg/dL Total Bilirubin 0.4 (0.2-1.3) mg/dL AST 33 (14-36) IU/L ALT 26 (<35) IU/L Alkaline Phosphatase 72 (38-126) U/L Total Protein 8.9 H (6.3-8.2) g/dL Albumin 5.4 H (3.5-5.0) g/dL Globulin 3.5 (1.7-4.1) g/dL Albumin/Globulin Ratio 1.5 (1.0-2.8) Lipase 139 (23-300) U/L SARS-CoV-2 (PCR) Negative (Negative) MDM Narrative Medical decision making narrative: Patient has been seen in the emergency department in the past for issues very similar to this. Approximately 1 year ago I saw her under very similar circumstances. She does have a leukocytosis today which I suspect is because of the vomiting. She has had elevated white counts in the past when presenting. The rest of her labs were unremarkable. Patient received 2 doses of Zofran. When I heard her retching in the room I walked in and found her putting her finger down her throat causing herself to vomit. When she was questioned about this she stated ?it makes me feel better ?she has a benign abdominal exam. No indication for radiologic studies. Given her presentation and the fact that she seems to be making herself vomit will discharge home to follow-up with her primary doctor. Discharge Plan Departure Patient Disposition: Home Clinical Impression: Vomiting Instructions: Nausea and Vomiting-Adult Activity Restrictions/Additional Instructions: I recommend that you continue all medications as directed. A prescription for some nausea medication was electronically transmitted to [email or web address]. Please pick it up in take it as directed. Contact your primary doctor for follow-up. Prescriptions: New ondansetron 4 mg tablet,disintegrating 4 mg PO Q6H PRN (Reason: nausea and vomiting) Qty: 14 0RF No Action Acyclovir 5% ointment 1 applic topical 5XD PRN (Reason: Cold Sores) Label Comments: 1 Application topically 5 times a day PRN loratadine [Allergy Relief (loratadine)] 10 mg tablet 10 mg PO DAILY PRN (Reason: allergy symptoms) Qty: 30 5RF cyclobenzaprine 5 mg tablet 5 mg PO BIDP PRN (Reason: muscle spasm) Qty: 30 2RF ondansetron 4 mg tablet,disintegrating 4 mg PO DAILY PRN (Reason: nausea and vomiting) Qty: 10 3RF ondansetron 4 mg tablet,disintegrating See Rx Instructions .ROUTE .COMPLEX Qty: 20 0RF Dose Instruction: dissolve 1 tablet ON TONGUE every 6 hours if needed for nausea OR vomiting Rx Instructions: dissolve 1 tablet ON TONGUE every 6 hours if needed for nausea OR vomiting cefuroxime axetil 500 mg tablet 500 mg PO BID Qty: 20 0RF valacyclovir 1 gram tablet 1,000 mg PO BID PRN (Reason: recurrent herpetic lesions) Qty: 30 3RF lisinopril 10 mg tablet See Rx Instructions .ROUTE .COMPLEX Qty: 90 0RF Dose Instruction: take 1 tablet by mouth once daily WITH METOPROLOL Rx Instructions: take 1 tablet by mouth once daily WITH METOPROLOL allopurinol 100 mg tablet See Rx Instructions .ROUTE .COMPLEX Qty: 90 0RF Dose Instruction: take 1 tablet by mouth once daily Rx Instructions: take 1 tablet by mouth once daily metoprolol succinate 25 mg tablet extended release 24 hr See Rx Instructions .ROUTE .COMPLEX Qty: 30 2RF Dose Instruction: take 1 tablet by mouth once daily Rx Instructions: take 1 tablet by mouth once daily atorvastatin 20 mg tablet 20 mg PO BEDTIME Qty: 60 0RF Rx Instructions: KEEP 05/10/22 APPT FOR CONT'D FILLS. THANK YOU 03/23/22 pantoprazole 40 mg tablet,delayed release (DR/EC) 40 mg PO DAILY Qty: 30 2RF promethazine 25 mg tablet 25 mg PO TID PRN (Reason: nausea and vomiting) Qty: 10 0RF hyoscyamine sulfate 0.125 mg tablet 0.125 mg PO BID-QID PRN (Reason: dyspepsia) Qty: 20 0RF ondansetron 4 mg tablet,disintegrating 4 mg PO TID-QID PRN (Reason: nausea and vomiting) Qty: 10 0RF ondansetron 4 mg tablet,disintegrating 4 mg PO Q8H PRN (Reason: nausea and vomiting) Qty: 10 0RF Referrals: Tushar Ruby DO [Primary Care Provider] -
[2022-04-08] MEDS: PANTOPRAZOLE 40 MG VIAL IV (07:22)
[2022-04-08] MEDS: ONDANSETRON 4 MG/2 ML INJ IV ×2 (07:22→08:06)
[2022-04-08] MEDS: SODIUM CHLORIDE 0.9% 1,000 ML 1000 ML IV (07:22)
[2022-04-08 07:28] VITALS: PULSE 70; RESP 18; O2SAT 99
[2022-04-08 07:30] VITALS: PULSE 78; RESP 18; O2SAT 97
[2022-04-08 09:01] VITALS: PULSE 85; RESP 18; O2SAT 97
[2022-04-08 10:20] VITALS: BP 140/60; PULSE 85; RESP 18; O2SAT 98
== END 2022-04-08 10:37 | disposition home or self-care (01) ==
PROVIDERS: Emergency Medicine; Emergency Provider Emergency Medicine; PCP Family Medicine
DX: R11.2 Nausea with vomiting, unspecified (principal); R10.11 Right upper quadrant pain; Z20.822 Contact with and (suspected) exposure to COVID-19
CPT/HCPCS: 36415; 80053; 83690; 85025; 87635; 96361; 96374; 96375; 96376; 99284; C9803; C9113; J2405

== ENCOUNTER → 2022-05-30 09:57 | Outpatient (CLI) | payer OTHER, MEDICAID, SELFPAY ==
[2020-03-08 13:47] VITALS: BMI 26.6
[2022-05-30 11:10] LABS: Add Manual Diff / Slide Review NO; Basophils Absolute Auto 0 /uL (0-100); Basophils Percent Auto 0.5 % (0-2); Eosinophils Absolute Auto 200 /uL (0-450); Eosinophils Percent Auto 2.2 % (2-4); Hematocrit 40.7 % (36-46); Hemoglobin 13.9 g/dL (12.0-16.0); Lymphocytes Absolute Auto 2500 /uL (1100-4500); Lymphocytes Percent Auto 30.7 % (25-40); Mean Corpuscular HGB Conc 34.2 % (30-36); Mean Corpuscular Hemoglobin 30.3 PG (26-34); Mean Corpuscular Volume 88.7 fL (80-100); Monocytes Absolute Auto 700 /uL (0-900); Monocytes Percent Auto 8.9 % (3-14); Neutrophils Absolute Auto 4600 /uL (1500-7000); Neutrophils Percent Auto 57.7 % (50-75); Platelet Count 301 X10^3/uL (150-400); Red Blood Cell Count 4.59 X10^6/uL (4.0-5.2); Red Cell Distribution Width 13.9 % (11.6-14.8)
[2022-05-30 11:48] LABS: Alanine Aminotransferase 19 IU/L (<35); Albumin 4.6 g/dL (3.5-5.0); Albumin Globulin Ratio 1.4 (1.0-2.8); Alkaline Phosphatase 62 U/L (38-126); Aspartate Aminotransferase 22 IU/L (14-36); BUN Creatinine Ratio 23.9 (6-22); Bilirubin Total 0.5 mg/dL (0.2-1.3); Blood Urea Nitrogen 16 mg/dL (7-17); Calcium 9.6 mg/dL (8.4-10.2); Carbon Dioxide 28 mmol/L (22-32); Chloride 102 mmol/L (98-107); Cholesterol 231 mg/dL (140-199); Estimated Glomerular Filt Rate > 60 mL/min (>60); Globulin 3.2 g/dL (1.7-4.1); Glucose 119 mg/dL (70-100); HDL Cholesterol 49 mg/dL (40-60); HEMOLYSIS < 15 (0-50); LDL Cholesterol Calculated 133 mg/dL (<100); Potassium 3.8 mmol/L (3.4-5.1); Sodium 138 mmol/L (137-145); Total Protein 7.8 g/dL (6.3-8.2); Triglycerides 246 mg/dL (35-150)
== END ==
PROVIDERS: PCP Family Medicine; Referring Provider Family Medicine; Visit Provider Family Medicine
DX: E78.2 Mixed hyperlipidemia (principal); I10 Essential (primary) hypertension
CPT/HCPCS: 36415; 80053; 80061; 85025

== ENCOUNTER → 2023-01-06 09:11 | Outpatient (CLI) | payer OTHER, MEDICAID, SELFPAY ==
[2020-03-08 13:47] VITALS: BMI 26.6
--- NOTE | 2023-01-06 09:12 | DI.MG.S_ITS ---
BILATERAL DIGITAL DIAGNOSTIC MAMMOGRAM 3D/2D: 01/06/2023 CLINICAL: Diffuse Pain right lateral breast. Comparison is made to exams dated: 06/30/2021 mammogram, 11/20/2019 mammogram, and 08/04/2018 mammogram - [facility]. There are scattered areas of fibroglandular density in both breasts (category b / 25%-50% glandular tissue). No significant masses, calcifications, or other findings are seen in either breast. Specifically, no finding to explain the patient's pain. Mammograms are stable. IMPRESSION: NEGATIVE There is no abnormality seen in the right breast to correspond with the diffuse pain in the lateral aspect. There is no mammographic evidence of malignancy. A 1 year screening mammogram is recommended. Findings and recommendations were conveyed to the patient at time of exam. Based on the Tyrer Cuzick model (a risk assessment model) the patient's lifetime risk is 5.2% and her 10 year risk is 1.8%. According to the ACR, ACS, and NCCN guidelines, an annual breast MRI exam along with mammogram is recommended if the patient's lifetime risk is 20% or greater. This exam was interpreted at Station ID: [id number]. NOTE: For mammograms, a report in lay terms will be sent to the patient. Approximately 15% of breast malignancies will not be visualized mammographically. In the management of a palpable breast mass, a negative mammogram must not discourage biopsy of a clinically suspicious lesion. Electronically Signed By: Tasha brewster/:01/06/2023 10:00:31 letter sent: Normal Exam ACR BI-RADS Category 1: Negative [id number]
== END ==
PROVIDERS: PCP Family Medicine; Referring Provider Registered Nurse Diabetes Educator; Visit Provider Registered Nurse Diabetes Educator
DX: N64.4 Mastodynia (principal)
CPT/HCPCS: 77066; G0279

== ENCOUNTER → 2023-03-28 09:00 | Outpatient (CLI) | payer OTHER, MEDICAID, SELFPAY ==
[2020-03-08 13:47] VITALS: BMI 26.6
[2023-03-28 10:33] LABS: Add Manual Diff / Slide Review NO; Basophils Absolute Auto 100 /uL (0-100); Basophils Percent Auto 0.8 % (0-2); Eosinophils Absolute Auto 100 /uL (0-450); Eosinophils Percent Auto 1.5 % (2-4); Hematocrit 40.6 % (36-46); Lymphocytes Absolute Auto 2500 /uL (1100-4500); Lymphocytes Percent Auto 28.4 % (25-40); Mean Corpuscular HGB Conc 34.6 % (30-36); Mean Corpuscular Hemoglobin 30.6 PG (26-34); Mean Corpuscular Volume 88.5 fL (80-100); Monocytes Absolute Auto 700 /uL (0-900); Monocytes Percent Auto 7.8 % (3-14); Neutrophils Absolute Auto 5300 /uL (1500-7000); Neutrophils Percent Auto 61.5 % (50-75); Platelet Count 279 X10^3/uL (150-400); Red Blood Cell Count 4.59 X10^6/uL (4.0-5.2); Red Cell Distribution Width 13.6 % (11.6-14.8); White Blood Cell Count 8.6 X10^3/uL (4.5-11.0)
[2023-03-28 10:49] LABS: Alanine Aminotransferase 27 IU/L (<35); Albumin 4.7 g/dL (3.5-5.0); Albumin Globulin Ratio 1.7 (1.0-2.8); Alkaline Phosphatase 71 U/L (38-126); Aspartate Aminotransferase 25 IU/L (14-36); BUN Creatinine Ratio 20.3 (6-22); Bilirubin Total 0.5 mg/dL (0.2-1.3); Blood Urea Nitrogen 14 mg/dL (7-17); Calcium 9.9 mg/dL (8.4-10.2); Carbon Dioxide 25 mmol/L (22-32); Chloride 103 mmol/L (98-107); Estimated Glomerular Filt Rate > 60 mL/min (>60); Globulin 2.8 g/dL (1.7-4.1); Glucose 122 mg/dL (70-100); HEMOLYSIS < 15 (0-50); Sodium 138 mmol/L (137-145); Total Protein 7.5 g/dL (6.3-8.2)
[2023-03-28 11:35] LABS: TSH w/ Reflex to FT4 1.38 uIU/mL (0.47-4.68)
[2023-03-29 03:15] LABS: x Labcorp Estim. Avg Glu (eAG) 126 mg/dL (.)
== END ==
PROVIDERS: PCP Family Medicine; Referring Provider Family Medicine; Visit Provider Family Medicine
DX: E78.2 Mixed hyperlipidemia (principal); I10 Essential (primary) hypertension; R73.01 Impaired fasting glucose; Z13.29 Encounter for screening for other suspected endocrine disorder; R80.9 Proteinuria, unspecified
CPT/HCPCS: 36415; 80053; 83036; 84443; 85025

== ENCOUNTER → 2024-10-29 09:29 | Outpatient (CLI) | payer OTHER, SELFPAY ==
[2020-03-08 13:47] VITALS: BMI 26.6
--- NOTE | 2024-10-29 09:31 | DI.MG.S_ITS ---
BILATERAL DIGITAL SCREENING MAMMOGRAM 3D/2D WITH CAD: 10/29/2024 CLINICAL: Routine screening. Comparison is made to exams dated: 01/06/2023 mammogram, 11/20/2019 mammogram, and 06/30/2021 mammogram - [facility]. There are scattered areas of fibroglandular density (category b / 25%-50% glandular tissue). Current study was also evaluated with a Computer Aided Detection (CAD) system. No significant masses, calcifications, or other findings are seen in either breast. There has been no significant interval change. IMPRESSION: NEGATIVE There is no mammographic evidence of malignancy. A 1 year screening mammogram is recommended. Based on the Tyrer Cuzick model (a risk assessment model) the patient's lifetime risk is 5.1% and her 10 year risk is 1.9%. According to the ACR, ACS, and NCCN guidelines, an annual breast MRI exam along with mammogram is recommended if the patient's lifetime risk is 20% or greater. This exam was interpreted at Station ID: [id number]. NOTE: For mammograms, a report in lay terms will be sent to the patient. Approximately 15% of breast malignancies will not be visualized mammographically. In the management of a palpable breast mass, a negative mammogram must not discourage biopsy of a clinically suspicious lesion. Electronically Signed By: Jayy go/izaiah:10/29/2024 16:44:22 letter sent: Normal Exam ACR BI-RADS Category 1: Negative
== END ==
PROVIDERS: PCP Family Medicine; Referring Provider Family Medicine; Visit Provider Family Medicine
DX: Z12.31 Encounter for screening mammogram for malignant neoplasm of breast (principal)
CPT/HCPCS: 77063; 77067

== ENCOUNTER → 2025-02-19 12:00 | Outpatient (CLI) | payer OTHER, SELFPAY ==
[2020-03-08 13:47] VITALS: BMI 26.6
[2025-02-19 13:13] LABS: Add Manual Diff / Slide Review NO; Basophils Absolute Auto 100 /uL (0-100); Basophils Percent Auto 0.8 % (0-2); Eosinophils Absolute Auto 100 /uL (0-450); Eosinophils Percent Auto 0.7 % (2-4); Hemoglobin 13.6 g/dL (12.0-16.0); Lymphocytes Absolute Auto 2600 /uL (1100-4500); Lymphocytes Percent Auto 26.1 % (25-40); Mean Corpuscular HGB Conc 33.3 % (30-36); Mean Corpuscular Volume 90.2 fL (80-100); Monocytes Absolute Auto 700 /uL (0-900); Neutrophils Absolute Auto 6400 /uL (1500-7000); Neutrophils Percent Auto 65.4 % (50-75); Platelet Count 299 X10^3/uL (150-400); Red Blood Cell Count 4.54 X10^6/uL (4.0-5.2); Red Cell Distribution Width 13.8 % (11.6-14.8); White Blood Cell Count 9.8 X10^3/uL (4.5-11.0)
[2025-02-19 13:22] LABS: Hemoglobin A1C% w Est Avg Glu 5.7 % (4.0-6.0)
[2025-02-19 13:40] LABS: Alanine Aminotransferase 26 IU/L (<35); Albumin 5.1 g/dL (3.5-5.0); Albumin Globulin Ratio 1.9 (1.0-2.8); Alkaline Phosphatase 62 U/L (38-126); Aspartate Aminotransferase 27 IU/L (14-36); Bilirubin Total 0.5 mg/dL (0.2-1.3); Blood Urea Nitrogen 12 mg/dL (7-17); Calcium 10.4 mg/dL (8.4-10.2); Carbon Dioxide 24 mmol/L (22-32); Chloride 104 mmol/L (98-107); Cholesterol 230 mg/dL (140-199); Estimated Glomerular Filt Rate > 60 mL/min (>60); Globulin 2.7 g/dL (1.7-4.1); Glucose 109 mg/dL (70-99); HDL Cholesterol 60 mg/dL (40-60); HEMOLYSIS < 15 (0-50); LDL Cholesterol Calculated 124 mg/dL (<100); Potassium 4.3 mmol/L (3.4-5.1); Sodium 139 mmol/L (137-145); Total Protein 7.8 g/dL (6.3-8.2); Triglycerides 232 mg/dL (35-150)
[2025-02-19 15:37] LABS: Creatinine Urine Random 123.77 mg/dL
[2025-02-19 15:42] LABS: Microalbumin Urine Random 15.2 mg/dL (0-1.6)
== END ==
PROVIDERS: PCP Family Medicine; Referring Provider Family Medicine; Visit Provider Family Medicine
DX: R80.9 Proteinuria, unspecified (principal); E78.2 Mixed hyperlipidemia; R73.03 Prediabetes
CPT/HCPCS: 36415; 80053; 80061; 82043; 82570; 83036; 85025